=== PATIENT | male | born 1945 | race Caucasian/White ===

== ENCOUNTER → 2018-01-31 16:51 | Outpatient (CLI) | payer OTHER, SELFPAY ==
[2018-01-31 17:35] LABS: Hematocrit 44.5 % (41-53); Hemoglobin 15.2 g/dL (13.5-17.5); Mean Corpuscular HGB Conc 34.2 % (30-36); Mean Corpuscular Hemoglobin 30.7 PG (26-34); Mean Corpuscular Volume 89.7 fL (80-100); Platelet Count 244 X10^3/uL (150-400); Red Blood Cell Count 4.96 X10^6/uL (4.5-5.9); Red Cell Distribution Width 15.4 % (11.6-14.8); White Blood Cell Count 9.8 X10^3/uL (4.5-11.0)
[2018-01-31 17:54] LABS: INR 1.5 (0.9-1.3); Prothrombin Time 16.7 SECONDS (10.1-12.7)
[2018-01-31 17:56] LABS: PTT Partial Thromboplastin Tim 34 SECONDS (26.4-36.2)
[2018-02-02 22:43] LABS: Protein C Antigen > 150 % normal (70-140)
[2018-02-07 01:22] LABS: B2-Glycoprotein I IgA AB < 9 SAU (< OR = 20); B2-Glycoprotein I IgG AB < 9 SGU (< OR = 20); B2-Glycoprotein I IgM AB < 9 SMU (< OR = 20); Cardiolipin Ab IgA < 11 APL; Cardiolipin Ab IgG < 14 GPL; Cardiolipin Ab IgM < 12 MPL; Phos. Serine AB IgM < 25 U/mL; dRVVT Screen 55 seconds (< OR = 45)
== END ==
PROVIDERS: PCP Internal Medicine; Visit Provider Internal Medicine
DX: D68.59 Other primary thrombophilia (principal)
CPT/HCPCS: 36415; 81241; 85027; 85302; 85306; 85610; 85613; 85730; 86146; 86147; 86148

== ENCOUNTER → 2018-05-25 09:29 | Outpatient (CLI) | payer OTHER, SELFPAY ==
--- NOTE | 2018-05-25 09:34 | DI.ECHO.S_ITS ---
[place]---------+ [facility] +---------+ : : [address] : : : : [id number] : : : : Phone: [phone] Echocardiogram Report + + :Name: SEBASTIAN LAWSON Study Date: 05/25/2018 Height: 70 in : :[facility] Weight: 210 lb : : Gender: Male BSA: 2.1 m2 : :: 1945 Age: 72 yrs BP: 150/96 mmHg: :Reason For Study: Arrhythmia, Dizziness : :Ordering Physician: Dr. Nowak : :[place] Performed By: Hayde Braun : + + Interpretation Summary This is a technically difficult study with limited endocardial visualization. Normal sinus rhythm with wide QRS complexes. Normal LV size, mild concentric LVH; there is dyssynchrony which could be due to conduction system disease. Otherwise no significant focal wall motion abnormalities. However, this is a technically difficult study, so can not exclude a small wall motion abnormality. Mild LA enlargement, otherwise normal chamber sizes. No significant valvular abnormalities. Mildly enlarged ascending aorta (4 cm diameter) Compared to prior study 10/04/2012 no changes have occurred. Procedure: A two-dimensional transthoracic echocardiogram with color flow and Doppler was performed. The study quality was technically adequate. Comparison is made with the echocardiogram of 10/04/2012. The patient was in normal sinus rhythm during the exam. The patient had a bundle branch block rhythm during the exam. Left Ventricle: Left ventricular wall thickness is mildly increased. The left ventricle is normal in size. There is no ventricular septal defect visualized. The ejection fraction is estimated to be 50-55%. Septal motion is consistent with conduction abnormality. Diastolic parameters suggest a relaxation abnormality of the left ventricle, consistent with probable normal filling pressures. Right Ventricle: The right ventricle is normal in size and function. Atria: The left atrium is mildly dilated. There is no Doppler evidence for an interatrial shunt. Mitral Valve: The mitral valve is normal in structure and function. There is trace mitral regurgitation. Aortic Valve: The aortic valve opens well. There is discrete nodular thickening of the right coronary cusp. There is trace aortic regurgitation. Tricuspid Valve: The tricuspid valve is not well visualized, but is grossly normal. There is a trace or physiologic amount of tricuspid regurgitation. Pulmonary artery pressures cannot be estimated because of the lack of a measurable TR jet velocity. Pulmonic Valve: The pulmonic valve is not well seen, but is grossly normal. Great Vessels: The aortic root is normal size. The ascending aorta is moderately enlarged. The aortic arch is mildly enlarged. The IVC is of normal diameter and collapses greater than 50% with a sniff. This suggests a low right atrial pressure of 3 mm Hg. Pericardium/ Pleura There is no pericardial effusion. MMode/2D Measurements & Calculations LVIDd: 4.3 cm LVOT diam: 2.1 cm LVIDs: 2.7 cm Ao root diam: 3.9 cm FS: 36.6 % Aortic Jxn: 3.0 cm EPSS: 1.1 cm asc Aorta Diam: 4.0 cm IVSd: 1.3 cm Ao Arch Diam (Prox Trans): 3.3 cm LVPWd: 1.1 cm LV merida. diameter/BSA (cm/m^2): 2.0 LV sys. diameter/BSA (cm/m^2): 1.3 LA A2 area: 17.3 cm2 RA long axis: 5.1 cm LA A4 area: 22.7 cm2 RA area: 14.2 cm2 LA length (vol): 5.6 cm RA vol: 33.7 ml LA vol: 59.1 ml RA : 15.8 ml/m2 LA vol index: 27.7 ml/m2 IVC diam: 1.4 cm RVD1 (basal): 3.7 cm RVD2 (mid): 3.0 cm Doppler Measurements & Calculations Ao V2 max: 119.9 cm/sec LVOT Max Augustus: 90.1 cm/sec Ao V2 mean: 90.0 cm/sec LV V1 max P.2 mmHg Ao max P.8 mmHg LV V1 VTI: 16.0 cm Ao mean P.5 mmHg FLOR(I,D): 2.8 cm2 Ao V2 VTI: 20.0 cm FLOR(V,D): 2.6 cm2 sev ratio: 0.80 FLOR indexed to BSA (cm^2/m^2): 1.3 MV E max augustus: 46.1 cm/sec PA V2 max: 93.5 cm/sec MV A max augustus: 73.9 cm/sec PA V2 mean: 59.7 cm/sec MV E/A: 0.62 PA mean P.6 mmHg Med Peak E' Augustus: 4.5 cm/sec PA Accel Time: 0.04 sec E/E' med: 10.2 Lat Peak E' Augustus: 5.9 cm/sec E/E' lat: 7.8 E/e' average: 9.0 MV dec time: 0.32 sec MV P1/2t: 93.0 msec MV 2t max augustus: 46.3 cm/sec MVA(t): 2.4 cm2 Reading Physician:05:31 PM
== END ==
PROVIDERS: PCP Internal Medicine; Visit Provider Internal Medicine
DX: I49.9 Cardiac arrhythmia, unspecified (principal); R42 Dizziness and giddiness
CPT/HCPCS: 93306

== ENCOUNTER → 2018-06-16 10:49 | Outpatient (CLI) | payer OTHER, SELFPAY ==
[2018-06-16 12:05] LABS: Add Manual Diff / Slide Review NO; Basophils Percent Auto 0.3 % (0-2); Eosinophils Percent Auto 0.2 % (2-4); Hematocrit 49.4 % (41-53); Hemoglobin 16.3 g/dL (13.5-17.5); Lymphocytes Percent Auto 9.3 % (25-40); Mean Corpuscular Hemoglobin 29.7 PG (26-34); Mean Corpuscular Volume 90.2 fL (80-100); Monocytes Percent Auto 7.5 % (3-14); Neutrophils Absolute Auto 9800 /uL (3000-5900); Neutrophils Percent Auto 82.7 % (50-75); Platelet Count 227 X10^3/uL (150-400); Red Blood Cell Count 5.48 X10^6/uL (4.5-5.9); Red Cell Distribution Width 14.9 % (11.6-14.8); White Blood Cell Count 11.8 X10^3/uL (4.5-11.0)
[2018-06-16 12:36] LABS: Alanine Aminotransferase 38 IU/L (21-72); Albumin 3.9 g/dL (3.5-5.0); Albumin Globulin Ratio 1.8 (1.0-2.8); Alkaline Phosphatase 44 U/L (38-126); Aspartate Aminotransferase 25 IU/L (17-59); Bilirubin Total 0.7 mg/dL (0.2-1.3); Bilirubin Unconjugated 0.5 mg/dL (0.0-1.1); Globulin 2.2 g/dL (1.7-4.1); HEMOLYSIS < 15 (0-50); Total Protein 6.1 g/dL (6.3-8.2)
== END ==
PROVIDERS: PCP Internal Medicine; Visit Provider Ophthalmology Neuro-ophthalmology
DX: Z79.899 Other long term (current) drug therapy (principal)
CPT/HCPCS: 36415; 80076; 85025

== ENCOUNTER → 2018-11-02 10:51 | Outpatient (CLI) | payer OTHER, SELFPAY ==
--- NOTE | 2018-11-02 10:52 | DI.US.S_ITS ---
PROCEDURE: US PERIPH VENOUS LOW EXTREM RT INDICATIONS: RIGHT CALF PAIN TECHNIQUE: Real-time imaging, as well as color and pulse Doppler interrogation, were performed of the lower extremity deep veins from the inguinal ligament to the popliteal fossa. COMPARISON: None. FINDINGS: The common femoral, femoral and popliteal veins are normally compressible, and free of intraluminal thrombus. Color and pulse Doppler demonstrate normal phasic intraluminal flow. There is normal augmentation response to distal compression maneuver. IMPRESSION: No DVT in the right lower extremity. Dictated by: Shraddha Carmona M.D. on 11/02/2018 at 12:39 Approved by: Shraddha Carmona M.D. on 11/02/2018 at 12:41
== END ==
PROVIDERS: PCP Internal Medicine; Visit Provider Nurse Practitioner
DX: M79.661 Pain in right lower leg (principal); Z86.711 Personal history of pulmonary embolism; Z86.718 Personal history of other venous thrombosis and embolism
CPT/HCPCS: 93971

== ENCOUNTER → 2018-11-11 09:04 | Outpatient (CLI) | payer OTHER, SELFPAY ==
[2018-11-11 10:38] LABS: Hematocrit 43.3 % (41-53); Hemoglobin 15.1 g/dL (13.5-17.5); Mean Corpuscular HGB Conc 34.9 % (30-36); Mean Corpuscular Hemoglobin 33.3 PG (26-34); Mean Corpuscular Volume 95.5 fL (80-100); Platelet Count 236 X10^3/uL (150-400); Red Blood Cell Count 4.54 X10^6/uL (4.5-5.9); Red Cell Distribution Width 16.9 % (11.6-14.8); White Blood Cell Count 7.2 X10^3/uL (4.5-11.0)
[2018-11-11 10:47] LABS: Add Manual Diff / Slide Review YES
[2018-11-11 11:03] LABS: Alanine Aminotransferase 25 IU/L (21-72); Albumin 3.7 g/dL (3.5-5.0); Albumin Globulin Ratio 1.5 (1.0-2.8); Alkaline Phosphatase 39 U/L (38-126); Aspartate Aminotransferase 24 IU/L (17-59); BUN Creatinine Ratio 15.6 (6-22); Bilirubin Total 0.6 mg/dL (0.2-1.3); Blood Urea Nitrogen 14 mg/dL (9-20); Calcium 8.9 mg/dL (8.4-10.2); Carbon Dioxide 29 mmol/L (22-32); Chloride 100 mmol/L (98-107); Cholesterol 214 mg/dL (140-199); Estimated Glomerular Filt Rate > 60.0 mL/min (>60); Globulin 2.5 g/dL (1.7-4.1); Glucose 73 mg/dL (80-110); HDL Cholesterol 53 mg/dL (40-60); HEMOLYSIS < 15 (0-50); LDL Cholesterol Calculated 135 mg/dL (<100); Potassium 3.5 mmol/L (3.4-5.1); Sodium 137 mmol/L (137-145); Total Protein 6.2 g/dL (6.3-8.2); Triglycerides 128 mg/dL (35-150)
[2018-11-11 11:15] LABS: Free T4, Direct Thyroxine 1.17 ng/dL (0.78-2.19)
[2018-11-11 11:29] LABS: Thyroid Stimulating Hormone 2.02 uIU/mL (0.47-4.68)
[2018-11-11 11:45] LABS: Neutrophils Absolute Manual 5112 /uL (3000-5900); Total Cells Counted 100
[2018-11-11 11:46] LABS: Anisocytosis 1+
== END ==
PROVIDERS: PCP Internal Medicine; Visit Provider Internal Medicine
DX: E78.2 Mixed hyperlipidemia (principal); G70.00 Myasthenia gravis without (acute) exacerbation; I95.1 Orthostatic hypotension; Z12.5 Encounter for screening for malignant neoplasm of prostate; Z13.1 Encounter for screening for diabetes mellitus; Z13.6 Encounter for screening for cardiovascular disorders
CPT/HCPCS: 36415; 80053; 80061; 84439; 84443; 85025; G0103

== ENCOUNTER → 2019-08-31 10:27 | Outpatient (CLI) | payer OTHER, SELFPAY ==
[2019-08-31 12:50] LABS: Add Manual Diff / Slide Review NO; Basophils Absolute Auto 0 /uL (0-100); Basophils Percent Auto 0.6 % (0-2); Eosinophils Absolute Auto 0 /uL (0-450); Eosinophils Percent Auto 0.6 % (2-4); Hematocrit 46.5 % (41-53); Hemoglobin 16.2 g/dL (13.5-17.5); Lymphocytes Absolute Auto 700 /uL (1100-4500); Lymphocytes Percent Auto 9.2 % (25-40); Mean Corpuscular HGB Conc 34.8 % (30-36); Mean Corpuscular Hemoglobin 35.7 PG (26-34); Mean Corpuscular Volume 102.6 fL (80-100); Monocytes Absolute Auto 700 /uL (0-900); Monocytes Percent Auto 8.7 % (3-14); Neutrophils Absolute Auto 6400 /uL (1500-7000); Neutrophils Percent Auto 80.9 % (50-75); Platelet Count 188 X10^3/uL (150-400); Red Blood Cell Count 4.53 X10^6/uL (4.5-5.9); Red Cell Distribution Width 17.1 % (11.6-14.8); White Blood Cell Count 7.9 X10^3/uL (4.5-11.0)
[2019-08-31 13:10] LABS: Alanine Aminotransferase 23 IU/L (<50); Albumin 3.7 g/dL (3.5-5.0); Albumin Globulin Ratio 1.7 (1.0-2.8); Alkaline Phosphatase 33 U/L (38-126); Aspartate Aminotransferase 29 IU/L (17-59); Bilirubin Total 1.6 mg/dL (0.2-1.3); Bilirubin Unconjugated 1.5 mg/dL (0.0-1.1); Globulin 2.2 g/dL (1.7-4.1); HEMOLYSIS < 15 (0-50); Total Protein 5.9 g/dL (6.3-8.2)
== END ==
PROVIDERS: Family Provider Internal Medicine; PCP Internal Medicine; Visit Provider Ophthalmology Neuro-ophthalmology
DX: Z79.899 Other long term (current) drug therapy (principal)
CPT/HCPCS: 36415; 80076; 85025

== ENCOUNTER → 2019-11-17 09:40 | Outpatient (CLI) | payer OTHER, SELFPAY ==
[2019-11-17 10:24] LABS: Add Manual Diff / Slide Review NO; Basophils Absolute Auto 0 /uL (0-100); Basophils Percent Auto 0.6 % (0-2); Eosinophils Absolute Auto 100 /uL (0-450); Eosinophils Percent Auto 1.5 % (2-4); Hematocrit 45.1 % (41-53); Hemoglobin 15.3 g/dL (13.5-17.5); Lymphocytes Absolute Auto 900 /uL (1100-4500); Lymphocytes Percent Auto 12.6 % (25-40); Mean Corpuscular Hemoglobin 35.7 PG (26-34); Mean Corpuscular Volume 105.2 fL (80-100); Monocytes Absolute Auto 700 /uL (0-900); Monocytes Percent Auto 10.1 % (3-14); Neutrophils Absolute Auto 5300 /uL (1500-7000); Neutrophils Percent Auto 75.2 % (50-75); Platelet Count 193 X10^3/uL (150-400); Red Blood Cell Count 4.29 X10^6/uL (4.5-5.9); Red Cell Distribution Width 16.2 % (11.6-14.8)
[2019-11-17 10:41] LABS: Alanine Aminotransferase 20 IU/L (<50); Albumin 3.8 g/dL (3.5-5.0); Albumin Globulin Ratio 1.4 (1.0-2.8); Alkaline Phosphatase 37 U/L (38-126); Aspartate Aminotransferase 27 IU/L (17-59); BUN Creatinine Ratio 11.2 (6-22); Bilirubin Total 1.4 mg/dL (0.2-1.3); Blood Urea Nitrogen 10 mg/dL (9-20); Calcium 9.2 mg/dL (8.4-10.2); Carbon Dioxide 29 mmol/L (22-32); Chloride 101 mmol/L (98-107); Cholesterol 228 mg/dL (140-199); Estimated Glomerular Filt Rate > 60.0 mL/min (>60); Globulin 2.8 g/dL (1.7-4.1); Glucose 76 mg/dL (80-110); HDL Cholesterol 41 mg/dL (40-60); HEMOLYSIS < 15 (0-50); LDL Cholesterol Calculated 160 mg/dL (<100); Potassium 3.9 mmol/L (3.4-5.1); Sodium 136 mmol/L (137-145); Total Protein 6.6 g/dL (6.3-8.2); Triglycerides 136 mg/dL (35-150)
[2019-11-17 11:07] LABS: Prostate Specific Antigen Scrn 1.24 ng/mL (0.1-4.0)
[2019-11-21 11:49] LABS: Percent Free Testosterone 3.75 % (1.50-4.20); Testosterone Free 44.08 ng/dL (5.00-21.00); Testosterone Total 1175.4 ng/dL (264.0-916.0)
== END ==
PROVIDERS: Family Provider Internal Medicine; PCP Internal Medicine; Referring Provider Internal Medicine; Visit Provider Internal Medicine
DX: Z12.5 Encounter for screening for malignant neoplasm of prostate (principal); E29.1 Testicular hypofunction; E78.2 Mixed hyperlipidemia; G62.9 Polyneuropathy, unspecified; G70.00 Myasthenia gravis without (acute) exacerbation; Z79.01 Long term (current) use of anticoagulants; Z86.711 Personal history of pulmonary embolism
CPT/HCPCS: 36415; 80053; 80061; 84402; 84403; 85025; G0103

== ENCOUNTER → 2020-10-28 08:55 | Outpatient (CLI) | payer OTHER, SELFPAY ==
[2020-10-28 10:06] LABS: Alanine Aminotransferase 16 IU/L (<50); Albumin 3.8 g/dL (3.5-5.0); Albumin Globulin Ratio 1.6 (1.0-2.8); Alkaline Phosphatase 35 U/L (38-126); Aspartate Aminotransferase 28 IU/L (17-59); Bilirubin Total 1.2 mg/dL (0.2-1.3); Bilirubin Unconjugated 1.3 mg/dL (0.0-1.1); Globulin 2.4 g/dL (1.7-4.1); HEMOLYSIS < 15 (0-50); Hematocrit 44.9 % (41-53); Hemoglobin 15.5 g/dL (13.5-17.5); Mean Corpuscular HGB Conc 34.5 % (30-36); Mean Corpuscular Hemoglobin 35.9 PG (26-34); Mean Corpuscular Volume 103.9 fL (80-100); Platelet Count 185 X10^3/uL (150-400); Red Blood Cell Count 4.32 X10^6/uL (4.5-5.9); Red Cell Distribution Width 15.7 % (11.6-14.8); Total Protein 6.2 g/dL (6.3-8.2); White Blood Cell Count 5.5 X10^3/uL (4.5-11.0)
[2020-10-28 10:07] LABS: Add Manual Diff / Slide Review YES
[2020-10-28 10:31] LABS: Anisocytosis 2+; Neutrophils Absolute Manual 3135 /uL (3000-5900); Polychromasia 1+; Total Cells Counted 100
== END ==
PROVIDERS: Family Provider Internal Medicine; PCP Internal Medicine; Referring Provider Ophthalmology Neuro-ophthalmology; Visit Provider Ophthalmology Neuro-ophthalmology
DX: Z79.899 Other long term (current) drug therapy (principal)
CPT/HCPCS: 36415; 80076; 85007; 85025

== ENCOUNTER → 2021-02-05 09:08 | Outpatient (CLI) | payer OTHER, SELFPAY ==
[2021-02-05 10:46] LABS: Add Manual Diff / Slide Review YES; Hematocrit 44.8 % (41-53); Hemoglobin 15.5 g/dL (13.5-17.5); Mean Corpuscular HGB Conc 34.6 % (30-36); Mean Corpuscular Hemoglobin 35.8 PG (26-34); Mean Corpuscular Volume 103.5 fL (80-100); Platelet Count 176 X10^3/uL (150-400); Red Blood Cell Count 4.33 X10^6/uL (4.5-5.9); Red Cell Distribution Width 15.3 % (11.6-14.8); White Blood Cell Count 6.1 X10^3/uL (4.5-11.0)
[2021-02-05 11:14] LABS: Alanine Aminotransferase 16 IU/L (<50); Albumin 3.4 g/dL (3.5-5.0); Albumin Globulin Ratio 1.4 (1.0-2.8); Alkaline Phosphatase 34 U/L (38-126); Aspartate Aminotransferase 31 IU/L (17-59); BUN Creatinine Ratio 11.3 (6-22); Bilirubin Total 1.1 mg/dL (0.2-1.3); Blood Urea Nitrogen 9 mg/dL (9-20); Calcium 9.2 mg/dL (8.4-10.2); Carbon Dioxide 28 mmol/L (22-32); Chloride 100 mmol/L (98-107); Cholesterol 234 mg/dL (140-199); Estimated Glomerular Filt Rate > 60.0 mL/min (>60); Globulin 2.4 g/dL (1.7-4.1); Glucose 66 mg/dL (80-110); HDL Cholesterol 69 mg/dL (40-60); HEMOLYSIS 19 (0-50); LDL Cholesterol Calculated 141 mg/dL (<100); Sodium 133 mmol/L (137-145); Total Protein 5.8 g/dL (6.3-8.2); Triglycerides 122 mg/dL (35-150)
[2021-02-05 11:18] LABS: Neutrophils Absolute Manual 4026 /uL (3000-5900); Nucleated Red Blood Cells 1 #/Diff; RBC Morphology Normal Morphology; Total Cells Counted 100
[2021-02-05 11:45] LABS: Prostate Specific Antigen Scrn 1.33 ng/mL (0.1-4.0); Thyroid Stimulating Hormone 2.27 uIU/mL (0.47-4.68)
[2021-02-09 13:26] LABS: Percent Free Testosterone 4.87 % (1.50-4.20); Testosterone Free 48.83 ng/dL (5.00-21.00); Testosterone Total 1002.6 ng/dL (264.0-916.0)
== END ==
PROVIDERS: Family Provider Internal Medicine; PCP Internal Medicine; Referring Provider Internal Medicine; Visit Provider Internal Medicine
DX: E29.1 Testicular hypofunction (principal); E78.5 Hyperlipidemia, unspecified; Z12.5 Encounter for screening for malignant neoplasm of prostate; E78.2 Mixed hyperlipidemia; G70.00 Myasthenia gravis without (acute) exacerbation; Z86.718 Personal history of other venous thrombosis and embolism
CPT/HCPCS: 80053; 80061; 84402; 84403; 84443; 85007; 85025; G0103

== ENCOUNTER → 2021-04-01 08:57 | Outpatient (CLI) | payer OTHER, SELFPAY ==
[2021-04-01 14:36] LABS: Alanine Aminotransferase 21 IU/L (<50); Albumin 3.7 g/dL (3.5-5.0); Albumin Globulin Ratio 1.5 (1.0-2.8); Alkaline Phosphatase 42 U/L (38-126); Aspartate Aminotransferase 33 IU/L (17-59); Bilirubin Total 1.1 mg/dL (0.2-1.3); Globulin 2.4 g/dL (1.7-4.1); HEMOLYSIS 31 (0-50); Total Protein 6.1 g/dL (6.3-8.2)
== END ==
PROVIDERS: Family Provider Internal Medicine; PCP Internal Medicine; Referring Provider Physician Assistant; Visit Provider Physician Assistant
DX: Z79.899 Other long term (current) drug therapy (principal)
CPT/HCPCS: 36415; 80076

== ENCOUNTER 2021-11-06 08:41 | Emergency (ER) | payer OTHER, SELFPAY ==
[2021-11-06] VITALS (57 sets, daily range): BP systolic 125–179; BP diastolic 64–85; PULSE 30–82; RESP 13–23; TEMP 36.6; O2SAT 94–100; BMI 27.9
--- NOTE | 2021-11-06 08:46 | ED_ITS ---
HPI - Arrhythmia/Palpitations <Nery Agustina Naik DO - Last Filed: 11/06/21 18:48> General Chief Complaint: Arrhythmia/Palpitations Stated Complaint: Heart rate in 30's- from [facility] Time Seen by Provider: 11/06/21 08:46 Source: patient and old records reviewed Mode of arrival: Ambulatory Limitations: no limitations History of Present Illness HPI narrative: This is a 76-year-old male sent from the clinic for low heart rate. Patient states he has been told it has been low his last couple visits in the 40s but on the 30s. He states he has had recurrent syncopal episodes particularly when he bends over and stands up or sits suddenly. Patient states he has felt fatigued, weak, tired persistently for several months which is why he has been getting testosterone injections at the clinic. He denies any chest pain or pressure. No shortness of breath. No nausea or vomiting. No new swelling in his extremities. He denies any urinary or GI symptoms. He does have a history of myasthenia gravis and is on prednisone and azathioprine daily as well as Xarelto for recurrent pulmonary emboli. Patient denies any prior cardiac interventions, surgeries but has been diagnosed with a left bundle branch block years ago according to the patient. He has had surgery for a tib-fib fracture in the past. No tobacco, alcohol 2 to 3 times a week, no illicit. He has not had any recent medication changes. He is currently on prednisone 15 mg been trying to wean down successfully. Discussed with patient he is full code agreeable to electric pacing if needed. Related Data Home Medications Medication Instructions Recorded Confirmed vitamin D3 94.38 mcg (3,775 1 cap PO #0 07/03/16 09/11/21 unit)-folic acid 1 mg capsule (Ciferex) CA PANTOTHENATE/FOLIC ACID/VIT 1 tab PO QDAY #0 02/12/20 09/11/21 (MULTIVITAMIN) Calcium 1 tab PO DAILY 02/20/21 09/11/21 calcium carbonate 300 mg (750 mg) 300 mg PO DAILY PRN #0 tab 02/20/21 09/11/21 chewable tablet (Tums E-X) Previous Rx's Medication Instructions Recorded Disabled Parking Permit ea #1 10/07/17 azathioprine 50 mg tablet (Imuran) 175 mg PO DAILY #316 tab 09/09/20 prednisone 10 mg tablet 10 mg PO DAILY #100 tab 02/20/21 prednisone 5 mg tablet 5 mg PO DAILY #100 tab 02/20/21 rivaroxaban 20 mg tablet (Xarelto) 20 mg PO DAILY #90 tab 02/20/21 testosterone cypionate 200 mg/mL 300 mg (1.5 mL) IM Q4W #4 ml 10/15/21 intramuscular oil (Depo-Testosterone) Allergies Allergy/AdvReac Type Severity Reaction Status Date / Time No Known Drug Allergies Allergy Verified 09/11/21 13:38 Review of Systems <Nery Naik DO - Last Filed: 11/06/21 18:48> Review of Systems ROS Unobtainable: All systems reviewed & are unremarkable except as noted in HPI and below Patient History <Nery Naik DO - Last Filed: 11/06/21 18:48> Medical History Cataract (2012) DVT (deep venous thrombosis) (2012) GERD (gastroesophageal reflux disease) (~1979) Gilbert syndrome Hearing loss (2011) History of deep venous thrombosis (01/03/13) Hypogonadism in male (07/12/17) Left bundle branch block (LBBB) (12/08/16) Measles Mixed hyperlipidemia Myasthenia gravis Orthostatic hypotension Peripheral neuropathy (2011) Personal history of pulmonary embolism (~11/2017) Staph infection (2009) Vertigo (2011) Vocal cord paralysis (2010) Surgical History Anesthesia History of cataract removal with insertion of prosthetic lens (07/2013) History of thyroidectomy (05/2013) Family History Mother Age: 98 High cholesterol Father Pulmonary fibrosis Family/Other Adopted Family/Other Adopted Social History Smoking Status: Never smoker Smoking Status: Never smoker Exam <Nery Naik DO - Last Filed: 11/06/21 18:48> Narrative Exam Narrative: GENERAL: Alert and oriented x three, well-appearing elderly male in mild distress. HEENT: Head normocephalic, atraumatic, EOMI, pupils reactive, face symmetric, moist mucous membranes NECK: Supple, full range of motion CARDIOVASCULAR: Bradycardic but Regular rate and rhythm without murmurs, rubs or gallops. No JVD. No swelling bilateral lower extremities. RESPIRATORY: Breath sounds equal bilaterally, no wheezes rales or rhonchi. ABDOMEN: Soft, nontender. Nondistended. Normoactive bowel sounds all 4 quadrants. No guarding or rebound, rigidity, no mass : No CVA tenderness EXTREMITIES: Normal range of motion, no clubbing or edema. Neurovascularly intact NEUROLOGICAL: Cranial nerves II through XII grossly intact. Moving all extremities. Normal gait. SKIN: Warm, dry, no petechiae, no rashes or lesions. Initial Vital Signs Initial Vital Signs: Vital Signs Temperature 97.8 F 11/06/21 08:53 Pulse Rate 34 L 11/06/21 08:53 Respiratory Rate 18 11/06/21 08:53 Blood Pressure 179/81 H 11/06/21 08:53 Pulse Oximetry 100 11/06/21 08:53 Course <Nery Naik, DO - Last Filed: 11/06/21 18:48> Orders Ordered: Discontinued Medications Sodium Chloride (Normal Saline 0.9%) 1,000 mls @ 150 mls/hr IV CONT TERESA Last Admin: 11/06/21 09:40 Dose: 150 mls/hr Documented by: ESMER Consultations Consultation #1: Dr. Jay, cardiology agrees with transfer to [facility]. Dr. Allison is covering today and he asks that we talk with him. Consultation #2: Dr. Allison, cardiology. Review patient's EKG agrees that the 3rd degree heart block they do not have electrophysiology available and ask us to seek placement elsewhere. Time: 10:15 Consultation #3: Dr. Ngoc Rob CCU attending. She is happy to accept the patient for transfer. Asked if we can send a copy of the EKG. At this time they are working on bed availability so patient acutely decompensates we will change direction. We will fax EKG. Vital Signs Vital signs: Vital Signs - 8 hr 11/06/21 18:00 11/06/21 18:15 11/06/21 18:30 Pulse Rate 33 L 33 L 33 L Respiratory Rate 22 20 21 Blood Pressure 128/73 140/70 133/72 Pulse Oximetry 95 94 94 11/06/21 18:45 11/06/21 19:00 11/06/21 19:01 Pulse Rate 44 L 34 L 34 L Respiratory Rate 20 20 21 Blood Pressure 158/82 H 149/77 H Pulse Oximetry 96 96 11/06/21 19:14 11/06/21 19:15 11/06/21 19:30 Pulse Rate 33 L 34 L 33 L Respiratory Rate 19 22 21 Blood Pressure 153/72 H 164/64 H Pulse Oximetry 96 95 95 11/06/21 19:46 11/06/21 20:00 11/06/21 20:01 Pulse Rate 33 L 32 L 33 L Respiratory Rate 19 23 21 Blood Pressure 129/67 151/72 H Pulse Oximetry 96 95 96 MDM - Arrhythmia/Palpitations <Nery Naik, DO - Last Filed: 11/06/21 18:48> Lab Data Result diagrams: 11/06/21 09:10 11/06/21 09:10 Labs: Lab Results 11/06/21 11/06/21 11/06/21 Range/Units 09:10 09:10 09:10 WBC 5.9 (4.5-11.0) X10^3/uL RBC 4.57 (4.5-5.9) X10^6/uL Hgb 16.7 (13.5-17.5) g/dL Hct 47.4 (41-53) % MCV 103.7 H (80-100) fL MCH 36.5 H (26-34) PG MCHC 35.1 (30-36) % RDW 15.7 H (11.6-14.8) % Plt Count 172 (150-400) X10^3/uL Neut % (Auto) Not Reportable Lymph % (Auto) Not Reportable [place] % (Auto) Not Reportable Eos % (Auto) Not Reportable Baso % (Auto) Not Reportable Lymph # (Auto) Not Reportable [place] # (Auto) Not Reportable Baso # (Auto) Not Reportable Total Counted 100 Seg Neutrophils % 71.0 H (38-70) % Lymphocytes % (Manual) 20.0 L (25-45) % Monocytes % (Manual) 5.0 (2-11) % Eosinophils % (Manual) 3.0 (2-4) % Metamyelocytes % 1.0 H (-0) % Neutrophils # (Manual) 4189 (8404-3929) /uL RBC Morphology See below Macrocytosis 1+ H PT 13.0 H (10.1-12.7) SECONDS INR 1.2 (0.9-1.3) APTT 39 H (26.4-36.2) SECONDS Sodium 137 (137-145) mmol/L Potassium 3.7 (3.4-5.1) mmol/L Chloride 102 (98-107) mmol/L Carbon Dioxide 30 (22-32) mmol/L BUN 15 (9-20) mg/dL Creatinine 1.01 (0.66-1.25) mg/dL Estimated GFR > 60.0 (>60) mL/min BUN/Creatinine Ratio 14.9 (6-22) Glucose 79 L (80-110) mg/dL Calcium 9.0 (8.4-10.2) mg/dL Magnesium 2.3 (1.6-2.3) mg/dL Total Creatine Kinase 25 L (55-170) U/L CK-MB (CK-2) TNP CK-MB (CK-2) Rel Index TNP Troponin I 0.013 (0.01-0.034) ng/mL TSH (0.47-4.68) uIU/mL Urine Color Urine Appearance Urine pH (4.5-8.0) Ur Specific [place] (1.000-1.035) Urine Protein (Negative) Urine Glucose (UA) (Negative) g/dL Urine Ketones (NEGATIVE) Urine Occult Blood (Negative) Urine Nitrate (Negative) Urine Bilirubin (NEGATIVE) Urine Urobilinogen (0.2) E.U./dL Ur Leukocyte Esterase (NEGATIVE) Urine RBC (0-5/HPF) Urine WBC (0-5/HPF) Amorphous Sediment Urine Bacteria (None) Ur Culture Indicated? U Opiates 300ng/mL cut (Negative) Ur Oxycodone Screen (Negative) Urine Methadone Screen (Negative) Ur Barbiturates Screen (Negative) U Tricyclic Antidepress (Negative) Ur Phencyclidine Scrn (Negative) Ur Amphetamines Screen (Negative) U Methamphetamines Scrn (Negative) Ur MDMA Scrn (Ecstasy) (Negative) U Benzodiazepines Scrn (Negative) Urine Cocaine Screen (Negative) U Marijuana (THC) Screen (Negative) SARS-CoV-2 (PCR) (Negative) 11/06/21 11/06/21 11/06/21 Range/Units 09:10 09:10 10:42 WBC (4.5-11.0) X10^3/uL RBC (4.5-5.9) X10^6/uL Hgb (13.5-17.5) g/dL Hct (41-53) % MCV (80-100) fL MCH (26-34) PG MCHC (30-36) % RDW (11.6-14.8) % Plt Count (150-400) X10^3/uL Neut % (Auto) Lymph % (Auto) [place] % (Auto) Eos % (Auto) Baso % (Auto) Lymph # (Auto) [place] # (Auto) Baso # (Auto) Total Counted Seg Neutrophils % (38-70) % Lymphocytes % (Manual) (25-45) % Monocytes % (Manual) (2-11) % Eosinophils % (Manual) (2-4) % Metamyelocytes % (-0) % Neutrophils # (Manual) (1872-2898) /uL RBC Morphology Macrocytosis PT (10.1-12.7) SECONDS INR (0.9-1.3) APTT (26.4-36.2) SECONDS Sodium (137-145) mmol/L Potassium (3.4-5.1) mmol/L Chloride (98-107) mmol/L Carbon Dioxide (22-32) mmol/L BUN (9-20) mg/dL Creatinine (0.66-1.25) mg/dL Estimated GFR (>60) mL/min BUN/Creatinine Ratio (6-22) Glucose (80-110) mg/dL Calcium (8.4-10.2) mg/dL Magnesium (1.6-2.3) mg/dL Total Creatine Kinase (55-170) U/L CK-MB (CK-2) CK-MB (CK-2) Rel Index Troponin I (0.01-0.034) ng/mL TSH 3.95 (0.47-4.68) uIU/mL Urine Color Yellow Urine Appearance Clear Urine pH 6.5 (4.5-8.0) Ur Specific [place] <=1.005 (1.000-1.035) Urine Protein Negative (Negative) Urine Glucose (UA) Negative (Negative) g/dL Urine Ketones Negative (NEGATIVE) Urine Occult Blood Trace-lysed (Negative) Urine Nitrate Negative (Negative) Urine Bilirubin Negative (NEGATIVE) Urine Urobilinogen 0.2 (0.2) E.U./dL Ur Leukocyte Esterase Negative (NEGATIVE) Urine RBC 0-1/hpf (0-5/HPF) Urine WBC None seen (0-5/HPF) Amorphous Sediment 2+ Urine Bacteria None seen (None) Ur Culture Indicated? Cult not indicated U Opiates 300ng/mL cut (Negative) Ur Oxycodone Screen (Negative) Urine Methadone Screen (Negative) Ur Barbiturates Screen (Negative) U Tricyclic Antidepress (Negative) Ur Phencyclidine Scrn (Negative) Ur Amphetamines Screen (Negative) U Methamphetamines Scrn (Negative) Ur MDMA Scrn (Ecstasy) (Negative) U Benzodiazepines Scrn (Negative) Urine Cocaine Screen (Negative) U Marijuana (THC) Screen (Negative) SARS-CoV-2 (PCR) Negative (Negative) 11/06/21 Range/Units 10:42 WBC (4.5-11.0) X10^3/uL RBC (4.5-5.9) X10^6/uL Hgb (13.5-17.5) g/dL Hct (41-53) % MCV (80-100) fL MCH (26-34) PG MCHC (30-36) % RDW (11.6-14.8) % Plt Count (150-400) X10^3/uL Neut % (Auto) Lymph % (Auto) [place] % (Auto) Eos % (Auto) Baso % (Auto) Lymph # (Auto) [place] # (Auto) Baso # (Auto) Total Counted Seg Neutrophils % (38-70) % Lymphocytes % (Manual) (25-45) % Monocytes % (Manual) (2-11) % Eosinophils % (Manual) (2-4) % Metamyelocytes % (-0) % Neutrophils # (Manual) (6255-0003) /uL RBC Morphology Macrocytosis PT (10.1-12.7) SECONDS INR (0.9-1.3) APTT (26.4-36.2) SECONDS Sodium (137-145) mmol/L Potassium (3.4-5.1) mmol/L Chloride (98-107) mmol/L Carbon Dioxide (22-32) mmol/L BUN (9-20) mg/dL Creatinine (0.66-1.25) mg/dL Estimated GFR (>60) mL/min BUN/Creatinine Ratio (6-22) Glucose (80-110) mg/dL Calcium (8.4-10.2) mg/dL Magnesium (1.6-2.3) mg/dL Total Creatine Kinase (55-170) U/L CK-MB (CK-2) CK-MB (CK-2) Rel Index Troponin I (0.01-0.034) ng/mL TSH (0.47-4.68) uIU/mL Urine Color Urine Appearance Urine pH (4.5-8.0) Ur Specific [place] (1.000-1.035) Urine Protein (Negative) Urine Glucose (UA) (Negative) g/dL Urine Ketones (NEGATIVE) Urine Occult Blood (Negative) Urine Nitrate (Negative) Urine Bilirubin (NEGATIVE) Urine Urobilinogen (0.2) E.U./dL Ur Leukocyte Esterase (NEGATIVE) Urine RBC (0-5/HPF) Urine WBC (0-5/HPF) Amorphous Sediment Urine Bacteria (None) Ur Culture Indicated? U Opiates 300ng/mL cut Negative (Negative) Ur Oxycodone Screen Negative (Negative) Urine Methadone Screen Negative (Negative) Ur Barbiturates Screen Negative (Negative) U Tricyclic Antidepress Negative (Negative) Ur Phencyclidine Scrn Negative (Negative) Ur Amphetamines Screen Negative (Negative) U Methamphetamines Scrn Negative (Negative) Ur MDMA Scrn (Ecstasy) Negative (Negative) U Benzodiazepines Scrn Negative (Negative) Urine Cocaine Screen Negative (Negative) U Marijuana (THC) Screen Negative (Negative) SARS-CoV-2 (PCR) (Negative) Point of Care Testing Glucose POC 39 Imaging Data Chest x-ray: Radiologist's Impresson: [address] [address] XRay Report Signed Patient: Curt De La Rosa MR#: [id number] : 1945 Acct:[id number] Age/Sex: 76 / M Date of Service: 11/06/21 Loc: ED Accession Number: [id number] ?? Procedure: XR chest 1V Ordering Provider: Nery Naik D.O. PROCEDURE:? XR CHEST 1V ? INDICATIONS:? low heart rate ? TECHNIQUE:? One view of the chest was acquired.? ? COMPARISON:? [facility], CT, PE STUDY (CTA CHEST), 06/16/2015, 1:58.? [facility], CR, CHEST 1 VIEW, 10/04/2012, 5:57.? [facility], CR, CHEST 1 VIEW, 06/16/2015, 1:16.? [facility], CHEST 1 VIEW, 10/07/2016, 13:11. ? FINDINGS:? Defibrillator pads are seen ? Surgical changes and devices:? None.? ? Lungs and pleura:? An incomplete inspiratory result is noted, causing a crowded appearance to the lung markings.? No focal infiltrates are seen.? No pneumothorax or significant pleural effusions are seen. ? ? Mediastinum:? The cardiac contours are within normal limits. The aorta demonstr ates calcification and tortuosity. ? Bones and chest wall:? No suspicious bony lesions.? Overlying soft tissues appear unremarkable.? ? ? IMPRESSION:? No significant acute portable chest abnormality can seen.? ? ? Dictated by: Law Coombs M.D. on 11/06/2021 at 8:21 ? ? Approved by: Law Coombs M.D. on 11/06/2021 at 8:23?? ECG Data Attestation: I personally reviewed and interpreted this ECG as follows: Prior ECG tracings: available for review Interpretation: Sinus bradycardia with third-degree heart block rate of 34 IN 218 QRS of [address] QTC [address] elevation appreciated wide complex QRS with left bundle branch block appreciated. Patient has prior from 10/07/2016 which shows left bundle- branch block only. MDM Narrative Medical decision making narrative: This is a 76-year-old male sent for low heart rate from outpatient clinic where he was getting testosterone injections patient is found to be in a third-degree heart block. He is currently stable at the moment but discussed with patient he could become unstable at any time and he is full code and agreeable to pacing as needed. He had hypoglycemia but was noted to not have eaten since 2:00 p.m. yesterday. He was given juice and his glucose improved 80. Patient's CBC shows a macrocytosis, normal troponin and renal function with no major electrolyte abnormalities, TSH is normal. Patient is not on any medications that should cause bradycardia aware of. He does have a history of myasthenia gravis and pulmonary emboli and is on Xarelto. Discussed with are most local cardiology they do not have electrophysiology available today and asked that we seek placement elsewhere. Patient's [place] patient and Dr. Adrien Ortiz at [facility] gives permission to transfer where ever bed is available. Multiple facilities were contacted with minimal availability in the region including [facility], [facility], , [facility], [facility] may have ability. Patient accepted at [facility] for transfer by Dr. Weinstein. Bed availability unlikely until tomorrow and they ask that we continue to search for placement. We will continue to search for closer bed as recommended by Mary victoria W. Will continue to monitor if patient acutely decompensates we plan for ED to ED transfer to closer facility. Patient accepted at [facility] by Dr. Mark with cardiology for transfer. After discussion. EKG reviewed and appears to be high grade 2:1 AV block and needs transfer for pacemaker. Patient signed out to Dr. Landeros while awaiting transport this evening to other facility. Critical Care Time <Nery Naik, DO - Last Filed: 11/06/21 18:48> Critical Care Time Critical Care Time: Yes Total Critical Care Time: 35 Attestation: The high probability of a clinically significant, sudden or life threatening deterioration of the [cardiac, pulm] system(s) required my full and direct attention, intervention and personal management. The aggregate critical care time was [35] minutes. This time is in addition to time spent performing reported procedures but includes the following: [x] Data Review and interpretation [x] Patient assessment and monitoring of vital signs [x] Documentation [x] Medication orders and management Discharge Plan Departure Patient Disposition: Xfer Acute Care Hospital Clinical Impression: Heart block AV third degree Prescriptions: No Action vitamin D3-folic acid [Ciferex] 3,775 UNITS/1 MG capsule 1 cap PO Qty: 0 0RF Disabled Parking Permit Qty: 1 0RF CA PANTOTHENATE/FOLIC ACID/VIT (MULTIVITAMIN) 1 tab PO QDAY Qty: 0 0RF Rx Instructions: 1/2 dose a few times a week azathioprine [Imuran] 50 mg tablet 175 mg PO DAILY Qty: 316 3RF calcium carbonate [Tums E-X] 300 mg (750 mg) tablet,chewable 300 mg PO DAILY PRNQty: 0 0RF testosterone cypionate [Depo-Testosterone] 200 mg/mL oil 300 mg IM Q4W Qty: 4 3RF Rx Instructions: 4 vials, 1 ml each for quantity Calcium 1,000 mg 1 tab PO DAILY 0RF Xarelto 20 mg tablet 20 mg PO DAILY Qty: 90 4RF prednisone 10 mg tablet 10 mg PO DAILY Qty: 100 3RF Rx Instructions: Takes total of 15 mg daily prednisone 5 mg tablet 5 mg PO DAILY Qty: 100 3RF Referrals: Eliu Zendejas MD [Primary Care Provider] -
--- NOTE | 2021-11-06 08:49 | DI.RAD.S_ITS ---
PROCEDURE: XR CHEST 1V INDICATIONS: low heart rate TECHNIQUE: One view of the chest was acquired. COMPARISON: [facility], CT, PE STUDY (CTA CHEST), 06/16/2015, 1:58. [facility], CR, CHEST 1 VIEW, 10/04/2012, 5:57. [facility], CR, CHEST 1 VIEW, 06/16/2015, 1:16. [facility], CHEST 1 VIEW, 10/07/2016, 13:11. FINDINGS: Defibrillator pads are seen Surgical changes and devices: None. Lungs and pleura: An incomplete inspiratory result is noted, causing a crowded appearance to the lung markings. No focal infiltrates are seen. No pneumothorax or significant pleural effusions are seen. Mediastinum: The cardiac contours are within normal limits. The aorta demonstrates calcification and tortuosity. Bones and chest wall: No suspicious bony lesions. Overlying soft tissues appear unremarkable. IMPRESSION: No significant acute portable chest abnormality can seen. Dictated by: Law Coombs M.D. on 11/06/2021 at 8:21 Approved by: Law Coombs M.D. on 11/06/2021 at 8:23
[2021-11-06 09:33] LABS: Hematocrit 47.4 % (41-53); Hemoglobin 16.7 g/dL (13.5-17.5); Mean Corpuscular HGB Conc 35.1 % (30-36); Mean Corpuscular Hemoglobin 36.5 PG (26-34); Mean Corpuscular Volume 103.7 fL (80-100); Platelet Count 172 X10^3/uL (150-400); Red Blood Cell Count 4.57 X10^6/uL (4.5-5.9); Red Cell Distribution Width 15.7 % (11.6-14.8); White Blood Cell Count 5.9 X10^3/uL (4.5-11.0)
[2021-11-06 09:34] LABS: INR 1.2 (0.9-1.3)
[2021-11-06 09:37] LABS: PTT Partial Thromboplastin Tim 39 SECONDS (26.4-36.2)
[2021-11-06 09:40] LABS: BUN Creatinine Ratio 14.9 (6-22); Blood Urea Nitrogen 15 mg/dL (9-20); Carbon Dioxide 30 mmol/L (22-32); Chloride 102 mmol/L (98-107); Creatine Kinase 25 U/L (55-170); Estimated Glomerular Filt Rate > 60.0 mL/min (>60); Glucose 79 mg/dL (80-110); HEMOLYSIS < 15 (0-50); Magnesium 2.3 mg/dL (1.6-2.3); Potassium 3.7 mmol/L (3.4-5.1); Sodium 137 mmol/L (137-145)
[2021-11-06] MEDS: SODIUM CHLORIDE 0.9% 1,000 ML 150 ML IV (09:40)
[2021-11-06 09:45] LABS: COVID19 -Nasal RAPID Negative (Negative)
[2021-11-06 09:51] LABS: Troponin I 0.013 ng/mL (0.01-0.034)
[2021-11-06 10:03] LABS: Add Manual Diff / Slide Review YES
[2021-11-06 10:05] LABS: Macrocytosis 1+; Neutrophils Absolute Manual 4189 /uL (3000-5900); Total Cells Counted 100
[2021-11-06 10:26] LABS: Thyroid Stimulating Hormone 3.95 uIU/mL (0.47-4.68)
[2021-11-06 11:27] LABS: Appearance Urine UA CLEAR; Bilirubin Urine UA NEGATIVE (NEGATIVE); Color Urine UA YELLOW; Glucose Urine UA NEGATIVE (Negative); Ketones Urine UA NEGATIVE (NEGATIVE); Leukocyte Esterase Urine UA NEGATIVE (NEGATIVE); Nitrite Urine UA NEGATIVE (Negative); Occult Blood Urine UA TRACE-LYSED (Negative); Protein Urine UA NEGATIVE (Negative); Specific Gravity Urine UA <=1.005 (1.000-1.035); Urobilinogen Urine UA 0.2 E.U./dL (0.2); pH Urine UA 6.5 (4.5-8.0)
[2021-11-06 11:32] LABS: UR Morphine/Opiate cutoff 300 Negative (Negative); Ur Creatinine Normal (Normal); Ur Specific Gravity Normal (Normal); Urine Amphetamines Negative (Negative); Urine Barbiturates Negative (Negative); Urine Benzodiazepines Negative (Negative); Urine Cocaine Negative (Negative); Urine MDMA Negative (Negative); Urine Methadone Negative (Negative); Urine Methamphetamines Negative (Negative); Urine Oxycodone Negative (Negative); Urine Phencyclidine Negative (Negative); Urine Tetrahydrocannabinol Negative (Negative); Urine Tricyclic Antidepressant Negative (Negative); Urine pH Normal (Normal)
[2021-11-06 11:42] LABS: Amorphous Sediment Urine 2+; Bacteria Urine None Seen; Culture Indicated Urine Cult Not Indicated; RBC Urine 0-1/HPF (0-5/HPF); WBC Urine None Seen (0-5/HPF)
--- NOTE | 2021-11-06 18:49 | PC.NURSE ---
Pt had a clear liquid diet dinner, per provider.
--- NOTE | 2021-11-06 18:52 | PC.NURSE ---
Patient alert and oriented x 4 all day. at the bedside off and on throughout the day. Denies CP, denies SOB.
== END 2021-11-06 20:26 | disposition short-term general hospital (02) ==
PROVIDERS: Emergency Provider Emergency Medicine; Family Provider Internal Medicine; PCP Internal Medicine
DX: I44.2 Atrioventricular block, complete (principal); E16.2 Hypoglycemia, unspecified; Z20.822 Contact with and (suspected) exposure to COVID-19
CPT/HCPCS: 36415; 71045; 80048; 80305; 81001; 82550; 82962; 83735; 84443; 84484; 85007; 85025; 85610; 85730; 87635; 93005; 93010; 99284; 99285; 99291; C9803

== ENCOUNTER 2021-12-19 11:46 | Emergency (ER) | payer OTHER, SELFPAY ==
[2021-12-19] VITALS (18 sets, daily range): BP systolic 118–172; BP diastolic 74–98; PULSE 60–68; RESP 16–20; TEMP 36.3; O2SAT 95–98; BMI 27.2
--- NOTE | 2021-12-19 11:56 | DI.RAD.S_ITS ---
PROCEDURE: XR CHEST 1V INDICATIONS: chest pain TECHNIQUE: One view of the chest was acquired. COMPARISON: [facility], CR, XR CHEST 1V, 11/06/2021, 9:01. FINDINGS: Surgical changes and devices: Left chest wall pacemaker leads are in the region of right atrium and right ventricle. Lungs and pleura: Lungs are clear. No pleural effusions or pneumothorax. Mediastinum: Mediastinal contours appear normal. Heart size is normal. Bones and chest wall: No suspicious bony lesions. Overlying soft tissues appear unremarkable. IMPRESSION: No acute cardiopulmonary pathology. Left chest wall pacemaker in place. Dictated by: Jovanny Marcos M.D. on 12/19/2021 at 12:16 Approved by: Jovanny Marcos M.D. on 12/19/2021 at 12:27
--- NOTE | 2021-12-19 12:06 | ED.CHESTPAIN ---
HPI - Chest Pain General Chief Complaint: Chest Pain Stated Complaint: chest pains/arm pains, has a pacemaker Time Seen by Provider: 12/19/21 12:06 Source: patient Mode of arrival: Ambulatory Limitations: no limitations History of Present Illness HPI narrative: 76M nonsmoker with history of third-degree heart block and recent pacemaker placement presents with a chief complaint of mid chest burning chest pain that radiates into both arms for the past 2 days. He states that seems to be worse if he lays on his side and thinks Mylanta probably helped. He had a pacemaker placed at the end of October and has been told not to lay on his left side, he has been sleeping on his right side and questions whether not doing this may have triggered his reflux. He is not dizzy nor weak or lightheaded. He has had no fever or chills and denies nausea, vomiting or diarrhea. He denies any exertional element to his symptoms. As far as he can tell his pacemaker has been working just fine. Related Data Home Medications Medication Instructions Recorded Confirmed vitamin D3 94.38 mcg (3,775 1 cap PO #0 07/03/16 11/14/21 unit)-folic acid 1 mg capsule (Ciferex) CA PANTOTHENATE/FOLIC ACID/VIT 1 tab PO QDAY #0 02/12/20 11/14/21 (MULTIVITAMIN) Calcium 1 tab PO DAILY 02/20/21 11/14/21 calcium carbonate 300 mg (750 mg) 300 mg PO DAILY PRN #0 tab 02/20/21 11/14/21 chewable tablet (Tums E-X) testosterone cypionate 200 mg/mL 300 mg IM Q4W ml 11/14/21 11/14/21 intramuscular oil (Depo-Testosterone) Previous Rx's Medication Instructions Recorded Disabled Parking Permit ea #1 10/07/17 azathioprine 50 mg tablet (Imuran) 175 mg PO DAILY #316 tab 09/09/20 prednisone 10 mg tablet 10 mg PO DAILY #100 tab 02/20/21 prednisone 5 mg tablet 5 mg PO DAILY #100 tab 02/20/21 rivaroxaban 20 mg tablet (Xarelto) 20 mg PO DAILY #90 tab 02/20/21 clotrimazole-betamethasone 1 1 applic TOPICAL BID #45 g 12/11/21 %-0.05 % topical cream Allergies Allergy/AdvReac Type Severity Reaction Status Date / Time No Known Drug Allergies Allergy Verified 11/14/21 13:34 Review of Systems Review of Systems Narrative: GENERAL: Denies chills, fatigue, malaise, fever, sweats. HEENT: Denies sinus pain, ear pain, sore throat, difficulty swallowing, dizziness. RESPIRATORY: Denies dyspnea, cough, wheezing, hemoptysis, sputum. CARDIOVASCULAR: See HPI GASTROINTESTINAL: See HPI : Denies dysuria, frequency, incontinence, hematuria, urinary retention. MUSCULOSKELETAL: denies weakness, joint pain, or bony pain SKIN: Denies rash, skin lesions, or other NEUROLOGIC: Denies weakness, headache, numbness, change in speech, confusion, seizures, incoordination. PSYCHIATRIC: No concerning psychosocial issues. 12 point review of systems is negative except for those stated above Patient History Medical History Cataract (2012) DVT (deep venous thrombosis) (2012) GERD (gastroesophageal reflux disease) (~1979) Gilbert syndrome Hearing loss (2011) Heart block AV third degree History of deep venous thrombosis (01/03/13) Hypogonadism in male (07/12/17) Left bundle branch block (LBBB) (12/08/16) Measles Mixed hyperlipidemia Myasthenia gravis Orthostatic hypotension Peripheral neuropathy (2011) Personal history of pulmonary embolism (~11/2017) Staph infection (2009) Vertigo (2011) Vocal cord paralysis (2010) Surgical History Anesthesia History of cataract removal with insertion of prosthetic lens (07/2013) History of thyroidectomy (05/2013) S/P cardiac pacemaker procedure (~10/2021) Family History Mother Age: 98 High cholesterol Father Pulmonary fibrosis Family/Other Adopted Family/Other Adopted Social History Smoking Status: Never smoker Smoking Status: Never smoker Substance Use Type: does not use Exam Narrative Exam Narrative: GENERAL: [76 year old patient appears stated age. Well-developed patient, in mild distress. HEAD: Atraumatic. Normocephalic. EYES: Pupils equal round and reactive. Extraocular motions intact. No scleral icterus. No injection or drainage. ENT: Nose without bleeding, purulent drainage. Throat without erythema, tonsillar hypertrophy or exudate. Airway patent. NECK: Trachea midline. Non tender CARDIOVASCULAR: Regular rate and rhythm without murmurs, gallops, or rubs. RESPIRATORY: Clear to auscultation. Breath sounds equal bilaterally. No wheezes, rales, or rhonchi. GASTROINTESTINAL: Abdomen soft, non-tender, nondistended. EXTREMITIES: No edema or joint tenderness. BACK: Nontender without deformity or crepitance. No flank tenderness. NEURO: AOx3. SKIN: No rash or erythema of visible areas Initial Vital Signs Initial Vital Signs: Vital Signs Temperature 97.4 F L 12/19/21 11:51 Pulse Rate 67 12/19/21 11:51 Respiratory Rate 18 12/19/21 11:51 Pulse Oximetry 97 12/19/21 11:51 Course Orders Ordered: Discontinued Medications Al Hydrox/Mg Hydrox/Simethicone 20 ml/ Lidocaine HCl 15 ml 0 ml PO NOW ONE Stop: 12/19/21 15:08 Last Admin: 12/19/21 15:28 Dose: 35 ml Documented by: STEFF Reevaluation(s) Reevaluation #1: Patient with significant improvement in symptoms over the course of the stay, though not obviously linked to any specific interventions or therapies. Consultations Consultation #1: Discussed with on-call product development coordinator at [facility]. We have reviewed the clinical course including labs, EKGs and imaging. We sure the opinion that the seems significantly unlikely to be of ischemic origin given these findings, or lack there of. CT angiogram has been discussed with Cardiology and we also sure the opinion that given the size of the reported ascending aneurysm it is not to be worried about or considered as a cause of patient's symptoms. Vital Signs Vital signs: Vital Signs - 8 hr 12/19/21 11:51 12/19/21 12:12 12/19/21 12:13 Temperature 97.4 F L Pulse Rate 67 68 67 Respiratory Rate 18 20 17 Blood Pressure 154/86 H Pulse Oximetry 97 98 98 12/19/21 12:30 12/19/21 13:00 12/19/21 13:11 Temperature Pulse Rate 67 60 60 Respiratory Rate 16 18 Blood Pressure 118/75 145/80 H Pulse Oximetry 97 97 98 12/19/21 13:30 12/19/21 14:00 12/19/21 14:30 Temperature Pulse Rate 60 60 63 Respiratory Rate Blood Pressure 133/74 141/83 H 124/81 Pulse Oximetry 96 97 96 12/19/21 15:00 12/19/21 15:30 Temperature Pulse Rate 62 62 Respiratory Rate 16 16 Blood Pressure 131/76 147/77 H Pulse Oximetry 96 97 MDM - Chest Pain Lab Data Result diagrams: 12/19/21 12:10 12/19/21 12:10 Labs: Lab Results 12/19/21 12/19/21 12/19/21 Range/Units 12:10 12:10 15:30 WBC 7.5 (4.5-11.0) X10^3/uL RBC 4.31 L (4.5-5.9) X10^6/uL Hgb 15.5 (13.5-17.5) g/dL Hct 44.2 (41-53) % MCV 102.7 H (80-100) fL MCH 35.9 H (26-34) PG MCHC 35.0 (30-36) % RDW 14.7 (11.6-14.8) % Plt Count 200 (150-400) X10^3/uL Neut % (Auto) 87.7 H (50-75) % Lymph % (Auto) 4.5 L (25-40) % Carson % (Auto) 7.3 (3-14) % Eos % (Auto) 0.3 L (2-4) % Baso % (Auto) 0.2 (0-2) % Neut # (Auto) 6600 (8478-9435) /uL Lymph # (Auto) 300 L (6339-3177) /uL Carson # (Auto) 600 (0-900) /uL Eos # (Auto) 0 (0-450) /uL Baso # (Auto) 0 (0-100) /uL Sodium 137 (137-145) mmol/L Potassium 4.1 (3.4-5.1) mmol/L Chloride 104 (98-107) mmol/L Carbon Dioxide 29 (22-32) mmol/L BUN 18 (9-20) mg/dL Creatinine 0.84 (0.66-1.25) mg/dL Estimated GFR > 60 (>60) mL/min BUN/Creatinine Ratio 21.4 (6-22) Glucose 113 H (80-110) mg/dL Calcium 8.8 (8.4-10.2) mg/dL Magnesium 2.3 (1.6-2.3) mg/dL Total Bilirubin 0.8 (0.2-1.3) mg/dL AST 40 (17-59) IU/L ALT 26 (<50) IU/L Alkaline Phosphatase 32 L (38-126) U/L Total Creatine Kinase 33 L (55-170) U/L CK-MB (CK-2) TNP CK-MB (CK-2) Rel Index TNP Troponin I 0.018 0.016 (0.01-0.034) ng/mL Total Protein 7.1 (6.3-8.2) g/dL Albumin 3.9 (3.5-5.0) g/dL Globulin 3.2 (1.7-4.1) g/dL Albumin/Globulin Ratio 1.2 (1.0-2.8) Lipase 154 (23-300) U/L Imaging Data Chest x-ray: Radiologist's Impression: Launch?Image [address] [address] XRay Report Signed Patient: Curt De LaR osa MR#: [id number] : 1945 Acct:[id number] Age/Sex: 76 / M Date of Service: 12/19/21 Loc: Accession Number: [id number] ?? Procedure: XR chest 1V Ordering Provider: Gus Kim D.O. PROCEDURE:? XR CHEST 1V ? INDICATIONS:? chest pain ? TECHNIQUE:? One view of the chest was acquired.? ? COMPARISON:? [facility], , XR CHEST 1V, 11/06/2021, 9:01. ? FINDINGS:? ? Surgical changes and devices:? Left chest wall pacemaker leads are in the region of right atrium and right ventricle. ? Lungs and pleura:? Lungs are clear.? No pleural effusions or pneumothorax.? ? Mediastinum:? Mediastinal contours appear normal.? Heart size is normal.? ? Bones and chest wall:? No suspicious bony lesions.? Overlying soft tissues appear unremarkable.? ? IMPRESSION:? No acute cardiopulmonary pathology.? Left chest wall pacemaker in place. ? ? Dictated by: Jovanyn Marcos M.D. on 12/19/2021 at 12:16 ? ? Approved by: Jovanny Marcos M.D. on 12/19/2021 at 12:27 ? CT scan - chest: Radiologist's Impression: [address] [address] [address] Scan Report Signed Patient: Curt De La Rosa MR#: [id number] : 1945 Acct:[id number] Age/Sex: 76 / M Date of Service: 12/19/21 Loc: ED Accession Number: [id number] ?? Procedure: CT angio chest PE protocol Ordering Provider: Gus Kim D.O. PROCEDURE:? CT ANGIO CHEST PE PROTOCOL ? INDICATIONS:? chest pain, recent pacer placement ? TECHNIQUE:? After the administration of intravenous contrast, 2 mm thick sections acquired from the pulmonary apices to the posterior costophrenic angles.? 3-dimensional maximum intensity projection (MIP) coronal and sagittal reformats were then acquired through the thorax.? For radiation dose reduction, the following was used:? automated exposure control, adjustment of mA and/or kV according to patient size.? ? COMPARISON:? None. ? FINDINGS:? Image quality:? Excellent.? ? Pulmonary arteries:? Pulmonary arteries are normal in size, and demonstrate no intraluminal filling defects to suggest central pulmonary embolism.? ? Lungs and pleura:? Mild dependent atelectasis in posterior and lateral periphery of bilateral lower lung vanessa are seen.? No pleural effusions or pneumothorax.? Central and peripheral airways are patent.? ? Mediastinum:? Heart size is enlarged, without pericardial effusion.? Pacemaker leads are noted in right atrium and right ventricle.? No mediastinal or hilar adenopathy.? Ascending thoracic aortic aneurysm is seen measures up to 4 cm in largest AP diameter..? Esophagus is normal in caliber, with a small hiatal hernia.? Left chest Bones and chest wall:? No suspicious bony lesions.? No acute vertebral body compression fracture.? Thyroid gland is within normal limits.? No axillary or supraclavicular adenopathy.? Wall pacemaker is seen. ? Abdomen:? Visualized upper abdominal solid organs appear normal in the early arterial phase of enhancement.? ? IMPRESSION:? 1. No evidence of pulmonary emboli.? 2. Ascending thoracic aortic aneurysm measures up to 4 cm in largest AP diameter.? Cardiomegaly, no pericardial effusion.? Left chest wall pacemaker in place.? No mediastinal or hilar lymphadenopathy. 3. Scattered atelectasis in posterior and lateral aspect of bilateral lower lung vanessa.? No focal infiltrate, pleural effusion or pneumothorax. ? ? ? Dictated by: Jovanny Marcos M.D. on 12/19/2021 at 13:46 ? ? Approved by: Jovanny Marcos M.D. on 12/19/2021 at 13:56 ? ECG Data Interpretation: EKG is normal sinus rhythm rate [73 ] and free of any signs of ischemia or ectopy. No ST segmental elevation or depression. No T wave inversions, left bundle-branch present MDM Narrative Medical decision making narrative: Multiple causes of chest pain considered including IA, PE, pneumothorax, pneumonia, aortic dissection, and pleurisy. Patient reports no radiation, no diaphoresis, no provocation with exertion, and no vomiting Patient's symptoms improved over duration of stay with above-stated therapies. Findings and discharge diagnosis discussed with patient/family followed by verbalization of understanding Return precautions discussed with patient/family whom verbalize understanding. Discharge Plan Departure Patient Disposition: Home Clinical Impression: Atypical chest pain Activity Restrictions/Additional Instructions: *You have been diagnosed with [atypical chest pain. As we discussed your EKGs, labs, and imaging are very reassuring. Your pacemaker is functioning fine and I have discussed your case with the cardiology group at [facility] who share this opinion. *What to do: *Please continue to take your regular medications as directed. [ ] New medication prescriptions sent to your pharmacy: [ ] [ ] New medication written as a paper prescription [x ] No new medications given *Please follow up with your primary care provider in 2-3 days, call for an appointment. Let them know you were seen in the Emergency Department and that we ask that you be seen in follow up. We will electronically transmit a record of today's note if your PCP is in our system * there was an incidental finding of a dilated ascending aorta at 4 cm. I discussed this with Cardiology at [facility] and there is no need for intervention at this time, they recommend following and has an outpatient which can be arranged by your primary care provider *If you do not have a primary care provider please contact the [facility] Resource line at [phone]. They will ask some questions about your medical history and help get you set up with a doctor in the community. *Return to Emergency Department if you should have any new, worsening or concerning symptoms, such as [fever greater than 101 F, shaking chills, worsening pain, persistent vomiting or other bothersome symptoms] Prescriptions: No Action vitamin D3-folic acid [Ciferex] 3,775 UNITS/1 MG capsule 1 cap PO Qty: 0 0RF Disabled Parking Permit Qty: 1 0RF CA PANTOTHENATE/FOLIC ACID/VIT (MULTIVITAMIN) 1 tab PO QDAY Qty: 0 0RF Rx Instructions: 1/2 dose a few times a week azathioprine [Imuran] 50 mg tablet 175 mg PO DAILY Qty: 316 3RF calcium carbonate [Tums E-X] 300 mg (750 mg) tablet,chewable 300 mg PO DAILY PRNQty: 0 0RF clotrimazole-betamethasone 1-0.05 % cream 1 applic topical BID Qty: 45 3RF Rx Instructions: For 4 weeks. then take 2 weeks off. testosterone cypionate [Depo-Testosterone] 200 mg/mL oil 300 mg IM Q4W 0RF Rx Instructions: RX TO BE SENT TO [facility] IN FUTURE/ 4 vials, 1 ml each for quantity Calcium 1,000 mg 1 tab PO DAILY 0RF Xarelto 20 mg tablet 20 mg PO DAILY Qty: 90 4RF prednisone 10 mg tablet 10 mg PO DAILY Qty: 100 3RF Rx Instructions: Takes total of 15 mg daily prednisone 5 mg tablet 5 mg PO DAILY Qty: 100 3RF Referrals: Eliu Zendejas MD [Primary Care Provider] -
[2021-12-19 12:18] LABS: Add Manual Diff / Slide Review NO; Basophils Absolute Auto 0 /uL (0-100); Basophils Percent Auto 0.2 % (0-2); Eosinophils Absolute Auto 0 /uL (0-450); Eosinophils Percent Auto 0.3 % (2-4); Hematocrit 44.2 % (41-53); Hemoglobin 15.5 g/dL (13.5-17.5); Lymphocytes Absolute Auto 300 /uL (1100-4500); Lymphocytes Percent Auto 4.5 % (25-40); Mean Corpuscular Hemoglobin 35.9 PG (26-34); Mean Corpuscular Volume 102.7 fL (80-100); Monocytes Absolute Auto 600 /uL (0-900); Monocytes Percent Auto 7.3 % (3-14); Neutrophils Absolute Auto 6600 /uL (1500-7000); Neutrophils Percent Auto 87.7 % (50-75); Platelet Count 200 X10^3/uL (150-400); Red Blood Cell Count 4.31 X10^6/uL (4.5-5.9); Red Cell Distribution Width 14.7 % (11.6-14.8); White Blood Cell Count 7.5 X10^3/uL (4.5-11.0)
[2021-12-19 12:34] LABS: Alanine Aminotransferase 26 IU/L (<50); Albumin 3.9 g/dL (3.5-5.0); Albumin Globulin Ratio 1.2 (1.0-2.8); Alkaline Phosphatase 32 U/L (38-126); Aspartate Aminotransferase 40 IU/L (17-59); BUN Creatinine Ratio 21.4 (6-22); Bilirubin Total 0.8 mg/dL (0.2-1.3); Blood Urea Nitrogen 18 mg/dL (9-20); Calcium 8.8 mg/dL (8.4-10.2); Carbon Dioxide 29 mmol/L (22-32); Chloride 104 mmol/L (98-107); Creatine Kinase 33 U/L (55-170); Estimated Glomerular Filt Rate > 60 mL/min (>60); Globulin 3.2 g/dL (1.7-4.1); Glucose 113 mg/dL (80-110); HEMOLYSIS 42 (0-50); Lipase 154 U/L (23-300); Magnesium 2.3 mg/dL (1.6-2.3); Potassium 4.1 mmol/L (3.4-5.1); Sodium 137 mmol/L (137-145); Total Protein 7.1 g/dL (6.3-8.2)
[2021-12-19 12:45] LABS: Troponin I 0.018 ng/mL (0.01-0.034)
--- NOTE | 2021-12-19 12:59 | DI.CT.S_ITS ---
PROCEDURE: CT ANGIO CHEST PE PROTOCOL INDICATIONS: chest pain, recent pacer placement TECHNIQUE: After the administration of intravenous contrast, 2 mm thick sections acquired from the pulmonary apices to the posterior costophrenic angles. 3-dimensional maximum intensity projection (MIP) coronal and sagittal reformats were then acquired through the thorax. For radiation dose reduction, the following was used: automated exposure control, adjustment of mA and/or kV according to patient size. COMPARISON: None. FINDINGS: Image quality: Excellent. Pulmonary arteries: Pulmonary arteries are normal in size, and demonstrate no intraluminal filling defects to suggest central pulmonary embolism. Lungs and pleura: Mild dependent atelectasis in posterior and lateral periphery of bilateral lower lung vanessa are seen. No pleural effusions or pneumothorax. Central and peripheral airways are patent. Mediastinum: Heart size is enlarged, without pericardial effusion. Pacemaker leads are noted in right atrium and right ventricle. No mediastinal or hilar adenopathy. Ascending thoracic aortic aneurysm is seen measures up to 4 cm in largest AP diameter.. Esophagus is normal in caliber, with a small hiatal hernia. Left chest Bones and chest wall: No suspicious bony lesions. No acute vertebral body compression fracture. Thyroid gland is within normal limits. No axillary or supraclavicular adenopathy. Wall pacemaker is seen. Abdomen: Visualized upper abdominal solid organs appear normal in the early arterial phase of enhancement. IMPRESSION: 1. No evidence of pulmonary emboli. 2. Ascending thoracic aortic aneurysm measures up to 4 cm in largest AP diameter. Cardiomegaly, no pericardial effusion. Left chest wall pacemaker in place. No mediastinal or hilar lymphadenopathy. 3. Scattered atelectasis in posterior and lateral aspect of bilateral lower lung vanessa. No focal infiltrate, pleural effusion or pneumothorax. Dictated by: Jovanny Marcos M.D. on 12/19/2021 at 13:46 Approved by: Jovanny Marcos M.D. on 12/19/2021 at 13:56
[2021-12-19] MEDS: MAG HYDROX/ALUMINUM/SIMETH SUS 20 ML, LIDOCAINE VISCOUS 2% 15 ML PO (15:28)
[2021-12-19 16:22] LABS: Troponin I 0.016 ng/mL (0.01-0.034)
== END 2021-12-19 18:07 | disposition home or self-care (01) ==
PROVIDERS: Emergency Provider Emergency Medicine; Family Provider Internal Medicine; PCP Internal Medicine
DX: R07.89 Other chest pain (principal); Z95.0 Presence of cardiac pacemaker
CPT/HCPCS: 36415; 71045; 71275; 80053; 82550; 83690; 83735; 84484; 85025; 93005; 93010; 99284

== ENCOUNTER → 2022-01-23 15:25 | Outpatient (CLI) | payer OTHER, SELFPAY ==
[2022-01-23 18:36] LABS: Erythrocyte Sedimentation Rate 5 MM/HR (0-15)
[2022-01-23 19:00] LABS: C-Reactive Protein Quant < 0.5 mg/dL (<1.0); Creatine Kinase 41 U/L (55-170)
[2022-01-23 19:29] LABS: TSH w/ Reflex to FT4 0.49 uIU/mL (0.47-4.68)
== END ==
PROVIDERS: Family Provider Internal Medicine; PCP Internal Medicine; Referring Provider Internal Medicine; Visit Provider Internal Medicine
DX: M79.10 Myalgia, unspecified site (principal); G62.9 Polyneuropathy, unspecified; G70.00 Myasthenia gravis without (acute) exacerbation; M25.50 Pain in unspecified joint; E29.1 Testicular hypofunction
CPT/HCPCS: 36415; 82550; 84443; 85651; 86140

== ENCOUNTER 2022-08-12 16:01 | Emergency (ER) | payer OTHER, SELFPAY ==
[2022-08-12] VITALS (9 sets, daily range): BP systolic 133–144; BP diastolic 75–103; PULSE 71–87; RESP 14–32; TEMP 36.2; O2SAT 96–99; BMI 29.0
--- NOTE | 2022-08-12 16:22 | DI.RAD.S_ITS ---
PROCEDURE: XR CHEST 1V INDICATIONS: chest pain TECHNIQUE: One view of the chest was acquired. COMPARISON: [facility], CR, XR CHEST 1V, 12/19/2021, 11:58. FINDINGS: Surgical changes and devices: Dual lead cardiac pacer is unchanged. Lungs and pleura: Lungs are clear. No pleural effusions or pneumothorax. Mediastinum: Mediastinal contours appear normal. Heart size is normal. Bones and chest wall: No suspicious bony lesions. Overlying soft tissues appear unremarkable. IMPRESSION: No acute cardiopulmonary findings. Dictated by: Stephy Clarke M.D. on 08/12/2022 at 16:54 Approved by: Stephy Clarke M.D. on 08/12/2022 at 16:55
[2022-08-12 16:56] LABS: Prothrombin Time 34.3 SECONDS (10.1-12.7)
[2022-08-12 16:59] LABS: PTT Partial Thromboplastin Tim 47 SECONDS (26-36)
[2022-08-12 17:00] LABS: Alanine Aminotransferase 28 IU/L (<50); Albumin 4.3 g/dL (3.5-5.0); Albumin Globulin Ratio 1.8 (1.0-2.8); Alkaline Phosphatase 38 U/L (38-126); Aspartate Aminotransferase 26 IU/L (17-59); BUN Creatinine Ratio 20.7 (6-22); Bilirubin Total 0.8 mg/dL (0.2-1.3); Blood Urea Nitrogen 18 mg/dL (9-20); Carbon Dioxide 24 mmol/L (22-32); Chloride 99 mmol/L (98-107); Creatine Kinase 41 U/L (55-170); Estimated Glomerular Filt Rate > 60 mL/min (>60); Globulin 2.4 g/dL (1.7-4.1); Glucose 114 mg/dL (80-110); HEMOLYSIS < 15 (0-50); Lipase 59 U/L (23-300); Magnesium 2.1 mg/dL (1.6-2.3); Sodium 135 mmol/L (137-145); Total Protein 6.7 g/dL (6.3-8.2)
[2022-08-12 17:08] LABS: Add Manual Diff / Slide Review NO; Basophils Absolute Auto 0 /uL (0-100); Basophils Percent Auto 0.4 % (0-2); Eosinophils Absolute Auto 0 /uL (0-450); Eosinophils Percent Auto 0.1 % (2-4); Hematocrit 28.7 % (41-53); Hemoglobin 9.9 g/dL (13.5-17.5); Lymphocytes Absolute Auto 200 /uL (1100-4500); Lymphocytes Percent Auto 4.6 % (25-40); Mean Corpuscular HGB Conc 34.5 % (30-36); Mean Corpuscular Hemoglobin 35.4 PG (26-34); Mean Corpuscular Volume 102.4 fL (80-100); Monocytes Absolute Auto 300 /uL (0-900); Monocytes Percent Auto 6.1 % (3-14); Neutrophils Absolute Auto 4700 /uL (1500-7000); Neutrophils Percent Auto 88.8 % (50-75); Platelet Count 189 X10^3/uL (150-400); Red Cell Distribution Width 22.9 % (11.6-14.8); White Blood Cell Count 5.3 X10^3/uL (4.5-11.0)
[2022-08-12 17:11] LABS: Troponin I 0.048 ng/mL (0.01-0.034)
[2022-08-12 17:24] LABS: Anisocytosis 2+; Macrocytosis 1+; Ovalocytes 1+; Poikilocytosis 2+; Tear Drop Cells 1+
[2022-08-12 20:39] LABS: Creatine Kinase 39 U/L (55-170)
--- NOTE | 2022-08-12 20:46 | ED.CHESTPAIN ---
HPI - Chest Pain <Meena Good DO - Last Filed: 08/14/22 18:11> General Chief Complaint: Chest Pain Stated Complaint: Bilat arm pain, Chest pain Time Seen by Provider: 08/12/22 17:54 Source: patient Mode of arrival: Family Vehicle Limitations: no limitations History of Present Illness HPI narrative: Patient is a 77-year-old male without a history of coronary artery disease. Does have a pacemaker in place in his on anticoagulation who is here for evaluation of several weeks of worsening chest pain on exertion that radiates down both of his arms. He states that it initially started as intermittent but now has become more frequent to the point were it happens every time he gets up and walks around. It improves when he sits down. Not worse with palpation. He currently is asymptomatic. He states his primary doctor has been trying to get him into have a stress test but has yet to have this performed. He denies any shortness of breath. Is taking all of his medications as directed. Related Data Home Medications Medication Instructions Recorded Confirmed vitamin D3 94.38 mcg (3,775 1 cap PO ##0 07/03/16 07/27/22 unit)-folic acid 1 mg capsule (Ciferex) CA PANTOTHENATE/FOLIC ACID/VIT 1 tab PO QDAY ##0 02/12/20 07/27/22 (MULTIVITAMIN) Calcium 1 tab PO DAILY 02/20/21 07/27/22 calcium carbonate 300 mg (750 mg) 300 mg PO DAILY PRN #0 tabs 02/20/21 07/27/22 chewable tablet (Tums E-X) azathioprine 50 mg tablet (Imuran) 200 mg PO DAILY 06/24/22 07/27/22 linezolid 600 mg tablet 600 mg PO DAILY 07/02/22 07/27/22 clarithromycin 500 mg tablet 500 mg PO BID 07/13/22 07/27/22 Previous Rx's Medication Instructions Recorded rivaroxaban 20 mg tablet (Xarelto) 20 mg PO DAILY #90 tabs 03/20/22 testosterone cypionate 200 mg/mL 300 mg (1.5 mL) IM Q4W #6 mL 04/28/22 intramuscular oil (Depo-Testosterone) prednisone 10 mg tablet 10 mg PO DAILY #90 tabs 06/05/22 [address]ing #1 ea 07/27/22 Allergies Allergy/AdvReac Type Severity Reaction Status Date / Time No Known Drug Allergies Allergy Verified 07/27/22 14:57 Review of Systems <Meena Good DO - Last Filed: 08/14/22 18:11> Constitutional Constitutional: Reports system reviewed and no additional complaints, except as documented ENT Ears, Nose, Mouth, and Throat: Reports system reviewed and no additional complaints, except as documented Cardiovascular Cardiovascular: Reports system reviewed and no additional complaints, except as documented Respiratory Respiratory: Reports system reviewed and no additional complaints, except as documented Gastrointestinal Gastrointestinal: Reports system reviewed and no additional complaints, except as documented Genitourinary Genitourinary: Reports system reviewed and no additional complaints, except as documented Musculoskeletal Musculoskeletal: Reports system reviewed and no additional complaints, except as documented Integumentary/Breasts Skin/Breast: Reports system reviewed and no additional complaints, except as documented Neurologic Neurologic: Reports system reviewed and no additional complaints, except as documented Hematologic/Lymphatic On Anticoagulants: Yes Patient History <Meena Good DO - Last Filed: 08/14/22 18:11> Medical History Cataract (2012) DVT (deep venous thrombosis) (2012) GERD (gastroesophageal reflux disease) (~1979) Gilbert syndrome Hearing loss (2011) Heart block AV third degree History of deep venous thrombosis (01/03/13) Hypogonadism in male (07/12/17) Left bundle branch block (LBBB) (12/08/16) Measles Mixed hyperlipidemia Myasthenia gravis Mycobacterium chelonae infection of skin Orthostatic hypotension Peripheral neuropathy (2011) Personal history of pulmonary embolism (~11/2017) Staph infection (2009) Vertigo (2011) Vocal cord paralysis (2010) Surgical History Anesthesia History of cataract removal with insertion of prosthetic lens (07/2013) History of thyroidectomy (05/2013) S/P cardiac pacemaker procedure (~10/2021) Family History Mother Age: 99 High cholesterol Father Pulmonary fibrosis Family/Other Adopted Family/Other Adopted Social History Smoking Status: Never smoker Smoking Status: Never smoker Substance Use Type: does not use Exam <Meena Good DO - Last Filed: 08/14/22 18:11> Initial Vital Signs Initial Vital Signs: Vital Signs Temperature 97.1 F L 08/12/22 16:20 Pulse Rate 87 08/12/22 16:20 Respiratory Rate 16 08/12/22 16:20 Blood Pressure 140/78 08/12/22 16:20 Pulse Oximetry 99 08/12/22 16:20 Oxygen Delivery Method 08/12/22 16:20 HENMT Head: normal to inspection and normocephalic Chest Chest: No crepitus and No tenderness Resp Effort & Inspection: normal respiratory effort Auscultation: clear to auscultation bilaterally Cardio Rate: regular rate Rhythm: regular rhythm GI Inspection: normal to inspection Palpation: soft and No tender Skin General: no rashes or lesions noted Neuro General: patient alert, patient awake, patient oriented x3 and moves all extremities Extrem General: normal to inspection and No capillary refill normal Psych Appearance: grossly normal and well kempt <Nery Naik DO - Last Filed: 08/13/22 18:52> Initial Vital Signs Initial Vital Signs: Vital Signs Temperature 97.1 F L 08/12/22 16:20 Pulse Rate 87 08/12/22 16:20 Respiratory Rate 16 08/12/22 16:20 Blood Pressure 140/78 08/12/22 16:20 Pulse Oximetry 99 08/12/22 16:20 Oxygen Delivery Method 08/12/22 16:20 <Gus Kim DO - Last Filed: 08/14/22 16:17> Initial Vital Signs Initial Vital Signs: Vital Signs Temperature 97.1 F L 08/12/22 16:20 Pulse Rate 87 08/12/22 16:20 Respiratory Rate 16 08/12/22 16:20 Blood Pressure 140/78 08/12/22 16:20 Pulse Oximetry 99 08/12/22 16:20 Oxygen Delivery Method 08/12/22 16:20 Scores <Meena Good DO - Last Filed: 08/14/22 18:11> HEART Score Heart Score history: Highly Suspicious Heart Score EKG: Non-Specific repolarization disturbance Heart Score Age: > or = 65 years old Heart Score risk factors: 1-2 risk factors Heart Score troponin: < or = to normal limit Heart Score Total: 6 <DO Cari Chun Last Filed: 08/13/22 18:52> HEART Score Heart Score Total: 6 <Gus Julio, DO - Last Filed: 08/14/22 16:17> HEART Score Heart Score Total: 6 Course <Meena Good, DO - Last Filed: 08/14/22 18:11> Orders Ordered: ED Orders 08/14/22 09:28 Basic Metabolic Panel Stat Complete Blood Count AUTO DIFF Stat PTT [Partial Thromboplastin Time] Q6H Troponin & CK Cardiac Panel Stat Azathioprine (Pom - Azathioprine 50 Mg Tablet) 100 mg PO 1200,2300 [facility] Last Admin: 08/14/22 13:54 Dose: 100 mg Documented By: Admin: 08/13/22 22:14 Dose: 100 mg Documented By: Admin: 08/13/22 12:18 Dose: 100 mg Documented By: MARIA GUADALUPE Clarithromycin (Pom - Clarithromycin 500 Mg Tablet) 500 mg PO 1200,2300 [facility] Last Admin: 08/14/22 13:54 Dose: 500 mg Documented By: Admin: 08/13/22 22:14 Dose: 500 mg Documented By: Admin: 08/13/22 12:18 Dose: 500 mg Documented By: MARIA GUADALUPE Heparin Sodium/Dextrose (Heparin Drip) 25,000 unit in 500 mls @ 20 mls/hr IV CONT TERESA; Protocol Last Admin: 08/13/22 21:38 Dose: 1,000 units/hr, 20 mls/hr Documented By: Titration: 08/13/22 21:38 Dose: 1,000 units/hr, 20 mls/hr Documented By: Admin: 08/12/22 21:35 Dose: 1,000 units/hr, 20 mls/hr Documented By: MARI Linezolid (Pom - Linezolid 600 Mg Tablet) 600 mg PO 1200 [facility] Last Admin: 08/14/22 13:54 Dose: 600 mg Documented By: Admin: 08/13/22 11:17 Dose: 600 mg Documented By: MARIA GUADALUPE Prednisone 10mg (Tablet) 1 each PO DAILY [facility] Last Admin: 08/14/22 09:19 Dose: 1 each Documented By: CUBA Pantoprazole Sodium (Pantoprazole 40 Mg Vial) 40 mg IV DAILY [facility] Last Admin: 08/14/22 09:19 Dose: 40 mg Documented By: Admin: 08/13/22 09:45 Dose: 40 mg Documented By: MARIA GUADALUPE Discontinued Medications Aspirin (Aspirin 81 Mg Chew Tab) 324 mg PO NOW ONE Stop: 08/12/22 16:23 Last Admin: 08/12/22 21:25 Dose: Not Given Documented By: MARI Azathioprine (Pom - Azathioprine 50 Mg Tablet) 50 mg PO 1200,2300 [facility] Last Admin: 08/13/22 13:09 Dose: Not Given Documented By: DEMI Heparin Sodium (Porcine) (Heparin 5,000 Unit/Ml Vial) 5,000 unit IV NOW ONE Stop: 08/12/22 21:09 Last Admin: 08/12/22 21:28 Dose: 5,000 unit Documented By: MARI Linezolid (Pom - Linezolid 600 Mg Tablet) 600 mg PO DAILY [facility] Last Admin: 08/13/22 10:47 Dose: Not Given Documented By: MARIA GUADALUPE(2) Prednisone (Pom - Prednisone 5 Mg Tablet) 10 mg PO DAILY [facility] Last Admin: 08/13/22 09:45 Dose: 10 mg Documented By: MARIA GUADALUPE Vital Signs Vital signs: Vital Signs - 8 hr 08/14/22 10:30 08/14/22 10:30 08/14/22 11:30 Pulse Rate 79 91 H Respiratory Rate 24 Blood Pressure 124/69 Pulse Oximetry 97 93 Oxygen Delivery Method Room Air 08/14/22 12:00 08/14/22 12:30 08/14/22 13:00 Pulse Rate 79 80 74 Respiratory Rate 24 26 H 21 Blood Pressure Pulse Oximetry 96 95 96 Oxygen Delivery Method 08/14/22 13:30 08/14/22 13:52 08/14/22 13:52 Pulse Rate 78 77 Respiratory Rate 20 24 Blood Pressure 120/73 120/73 Pulse Oximetry 93 97 Oxygen Delivery Method 08/14/22 13:56 08/14/22 14:00 08/14/22 14:04 Pulse Rate 92 H 80 Respiratory Rate 24 Blood Pressure 121/73 Pulse Oximetry Oxygen Delivery Method 08/14/22 14:30 08/14/22 15:00 08/14/22 15:30 Pulse Rate 76 75 73 Respiratory Rate 20 Blood Pressure Pulse Oximetry 98 97 98 Oxygen Delivery Method 08/14/22 16:00 08/14/22 16:30 Pulse Rate 72 75 Respiratory Rate 22 21 Blood Pressure Pulse Oximetry 99 Oxygen Delivery Method <Nery Naik, DO - Last Filed: 08/13/22 18:52> Orders Ordered: ED Orders 08/14/22 09:28 Basic Metabolic Panel Stat Complete Blood Count AUTO DIFF Stat PTT [Partial Thromboplastin Time] Q6H Troponin & CK Cardiac Panel Stat Azathioprine (Pom - Azathioprine 50 Mg Tablet) 100 mg PO 1200,2300 [facility] Last Admin: 08/14/22 13:54 Dose: 100 mg Documented By: Admin: 08/13/22 22:14 Dose: 100 mg Documented By: Admin: 08/13/22 12:18 Dose: 100 mg Documented By: MARIA GUADALUPE Clarithromycin (Pom - Clarithromycin 500 Mg Tablet) 500 mg PO 1200,2300 [facility] Last Admin: 08/14/22 13:54 Dose: 500 mg Documented By: Admin: 08/13/22 22:14 Dose: 500 mg Documented By: Admin: 08/13/22 12:18 Dose: 500 mg Documented By: MARIA GUADALUPE Heparin Sodium/Dextrose (Heparin Drip) 25,000 unit in 500 mls @ 20 mls/hr IV CONT TERESA; Protocol Last Admin: 08/13/22 21:38 Dose: 1,000 units/hr, 20 mls/hr Documented By: Titration: 08/13/22 21:38 Dose: 1,000 units/hr, 20 mls/hr Documented By: Admin: 08/12/22 21:35 Dose: 1,000 units/hr, 20 mls/hr Documented By: MARI Linezolid (Pom - Linezolid 600 Mg Tablet) 600 mg PO 1200 [facility] Last Admin: 08/14/22 13:54 Dose: 600 mg Documented By: Admin: 08/13/22 11:17 Dose: 600 mg Documented By: MARIA GUADALUPE Prednisone 10mg (Tablet) 1 each PO DAILY [facility] Last Admin: 08/14/22 09:19 Dose: 1 each Documented By: CUBA Pantoprazole Sodium (Pantoprazole 40 Mg Vial) 40 mg IV DAILY [facility] Last Admin: 08/14/22 09:19 Dose: 40 mg Documented By: Admin: 08/13/22 09:45 Dose: 40 mg Documented By: MARIA GUADALUPE Discontinued Medications Aspirin (Aspirin 81 Mg Chew Tab) 324 mg PO NOW ONE Stop: 08/12/22 16:23 Last Admin: 08/12/22 21:25 Dose: Not Given Documented By: MARI Azathioprine (Pom - Azathioprine 50 Mg Tablet) 50 mg PO 1200,2300 [facility] Last Admin: 08/13/22 13:09 Dose: Not Given Documented By: DEMI Heparin Sodium (Porcine) (Heparin 5,000 Unit/Ml Vial) 5,000 unit IV NOW ONE Stop: 08/12/22 21:09 Last Admin: 08/12/22 21:28 Dose: 5,000 unit Documented By: MARI Linezolid (Pom - Linezolid 600 Mg Tablet) 600 mg PO DAILY [facility] Last Admin: 08/13/22 10:47 Dose: Not Given Documented By: MARIA GUADALUPE(2) Prednisone (Pom - Prednisone 5 Mg Tablet) 10 mg PO DAILY [facility] Last Admin: 08/13/22 09:45 Dose: 10 mg Documented By: MARIA GUADALUPE Vital Signs Vital signs: Vital Signs - 8 hr 08/14/22 10:30 08/14/22 10:30 08/14/22 11:30 Pulse Rate 79 91 H Respiratory Rate 24 Blood Pressure 124/69 Pulse Oximetry 97 93 Oxygen Delivery Method Room Air 08/14/22 12:00 08/14/22 12:30 08/14/22 13:00 Pulse Rate 79 80 74 Respiratory Rate 24 26 H 21 Blood Pressure Pulse Oximetry 96 95 96 Oxygen Delivery Method 08/14/22 13:30 08/14/22 13:52 08/14/22 13:52 Pulse Rate 78 77 Respiratory Rate 20 24 Blood Pressure 120/73 120/73 Pulse Oximetry 93 97 Oxygen Delivery Method 08/14/22 13:56 08/14/22 14:00 08/14/22 14:04 Pulse Rate 92 H 80 Respiratory Rate 24 Blood Pressure 121/73 Pulse Oximetry Oxygen Delivery Method 08/14/22 14:30 08/14/22 15:00 08/14/22 15:30 Pulse Rate 76 75 73 Respiratory Rate 20 Blood Pressure Pulse Oximetry 98 97 98 Oxygen Delivery Method 08/14/22 16:00 08/14/22 16:30 Pulse Rate 72 75 Respiratory Rate 22 21 Blood Pressure Pulse Oximetry 99 Oxygen Delivery Method <Gus Kim, - Last Filed: 08/14/22 16:17> Orders Ordered: ED Orders 08/14/22 09:28 Basic Metabolic Panel Stat Complete Blood Count AUTO DIFF Stat PTT [Partial Thromboplastin Time] Q6H Troponin & CK Cardiac Panel Stat Azathioprine (Pom - Azathioprine 50 Mg Tablet) 100 mg PO 1200,2300 [facility] Last Admin: 08/14/22 13:54 Dose: 100 mg Documented By: Admin: 08/13/22 22:14 Dose: 100 mg Documented By: Admin: 08/13/22 12:18 Dose: 100 mg Documented By: MARIA GAUDALUPE Clarithromycin (Pom - Clarithromycin 500 Mg Tablet) 500 mg PO 1200,2300 [facility] Last Admin: 08/14/22 13:54 Dose: 500 mg Documented By: Admin: 08/13/22 22:14 Dose: 500 mg Documented By: Admin: 08/13/22 12:18 Dose: 500 mg Documented By: MARIA GUADALUPE Heparin Sodium/Dextrose (Heparin Drip) 25,000 unit in 500 mls @ 20 mls/hr IV CONT TERESA; Protocol Last Admin: 08/13/22 21:38 Dose: 1,000 units/hr, 20 mls/hr Documented By: Titration: 08/13/22 21:38 Dose: 1,000 units/hr, 20 mls/hr Documented By: Admin: 08/12/22 21:35 Dose: 1,000 units/hr, 20 mls/hr Documented By: MARI Linezolid (Pom - Linezolid 600 Mg Tablet) 600 mg PO 1200 [facility] Last Admin: 08/14/22 13:54 Dose: 600 mg Documented By: Admin: 08/13/22 11:17 Dose: 600 mg Documented By: MARIA GUADALUPE Prednisone 10mg (Tablet) 1 each PO DAILY [facility] Last Admin: 08/14/22 09:19 Dose: 1 each Documented By: CUBA Pantoprazole Sodium (Pantoprazole 40 Mg Vial) 40 mg IV DAILY [facility] Last Admin: 08/14/22 09:19 Dose: 40 mg Documented By: Admin: 08/13/22 09:45 Dose: 40 mg Documented By: MARIA GUADALUPE Discontinued Medications Aspirin (Aspirin 81 Mg Chew Tab) 324 mg PO NOW ONE Stop: 08/12/22 16:23 Last Admin: 08/12/22 21:25 Dose: Not Given Documented By: MARI Azathioprine (Pom - Azathioprine 50 Mg Tablet) 50 mg PO 1200,2300 [facility] Last Admin: 08/13/22 13:09 Dose: Not Given Documented By: DEMI Heparin Sodium (Porcine) (Heparin 5,000 Unit/Ml Vial) 5,000 unit IV NOW ONE Stop: 08/12/22 21:09 Last Admin: 08/12/22 21:28 Dose: 5,000 unit Documented By: MARI Linezolid (Pom - Linezolid 600 Mg Tablet) 600 mg PO DAILY [facility] Last Admin: 08/13/22 10:47 Dose: Not Given Documented By: MARIA GUADALUPE(2) Prednisone (Pom - Prednisone 5 Mg Tablet) 10 mg PO DAILY [facility] Last Admin: 08/13/22 09:45 Dose: 10 mg Documented By: MARIA GUADALUPE Vital Signs Vital signs: Vital Signs - 8 hr 08/14/22 10:30 08/14/22 10:30 08/14/22 11:30 Pulse Rate 79 91 H Respiratory Rate 24 Blood Pressure 124/69 Pulse Oximetry 97 93 Oxygen Delivery Method Room Air 08/14/22 12:00 08/14/22 12:30 08/14/22 13:00 Pulse Rate 79 80 74 Respiratory Rate 24 26 H 21 Blood Pressure Pulse Oximetry 96 95 96 Oxygen Delivery Method 08/14/22 13:30 08/14/22 13:52 08/14/22 13:52 Pulse Rate 78 77 Respiratory Rate 20 24 Blood Pressure 120/73 120/73 Pulse Oximetry 93 97 Oxygen Delivery Method 08/14/22 13:56 08/14/22 14:00 08/14/22 14:04 Pulse Rate 92 H 80 Respiratory Rate 24 Blood Pressure 121/73 Pulse Oximetry Oxygen Delivery Method 08/14/22 14:30 08/14/22 15:00 08/14/22 15:30 Pulse Rate 76 75 73 Respiratory Rate 20 Blood Pressure Pulse Oximetry 98 97 98 Oxygen Delivery Method 08/14/22 16:00 08/14/22 16:30 Pulse Rate 72 75 Respiratory Rate 22 21 Blood Pressure Pulse Oximetry 99 Oxygen Delivery Method MDM - Chest Pain <Meena Good, DO - Last Filed: 08/14/22 18:11> Lab Data Attestation: I reviewed the patient's lab results. Result diagrams: 08/14/22 09:28 08/14/22 09:28 Labs: Lab Results 08/12/22 08/12/22 08/12/22 Range/Units 16:40 16:40 16:40 WBC 5.3 (4.5-11.0) X10^3/uL RBC 2.80 L (4.5-5.9) X10^6/uL Hgb 9.9 L (13.5-17.5) g/dL Hct 28.7 L (41-53) % MCV 102.4 H (80-100) fL MCH 35.4 H (26-34) PG MCHC 34.5 (30-36) % RDW 22.9 H (11.6-14.8) % Plt Count 189 (150-400) X10^3/uL Neut % (Auto) 88.8 H (50-75) % Lymph % (Auto) 4.6 L (25-40) % [place] % (Auto) 6.1 (3-14) % Eos % (Auto) 0.1 L (2-4) % Baso % (Auto) 0.4 (0-2) % Neut # (Auto) 4700 (9262-6215) /uL Lymph # (Auto) 200 L (6900-0908) /uL [place] # (Auto) 300 (0-900) /uL Eos # (Auto) 0 (0-450) /uL Baso # (Auto) 0 (0-100) /uL RBC Morphology See below Poikilocytosis 2+ H Anisocytosis 2+ H Macrocytosis 1+ H Tear Drop Cells 1+ H Ovalocytes 1+ H PT 34.3 H (10.1-12.7) SECONDS INR 3.0 H (0.9-1.3) APTT 47 H (26-36) SECONDS Sodium 135 L (137-145) mmol/L Potassium 5.0 (3.4-5.1) mmol/L Chloride 99 (98-107) mmol/L Carbon Dioxide 24 (22-32) mmol/L BUN 18 (9-20) mg/dL Creatinine 0.87 (0.66-1.25) mg/dL Estimated GFR > 60 (>60) mL/min BUN/Creatinine Ratio 20.7 (6-22) Glucose 114 H (80-110) mg/dL Calcium 9.0 (8.4-10.2) mg/dL Magnesium 2.1 (1.6-2.3) mg/dL Total Bilirubin 0.8 (0.2-1.3) mg/dL AST 26 (17-59) IU/L ALT 28 (<50) IU/L Alkaline Phosphatase 38 (38-126) U/L Total Creatine Kinase 41 L (55-170) U/L CK-MB (CK-2) TNP CK-MB (CK-2) Rel Index TNP Troponin I 0.048 H (0.01-0.034) ng/mL Total Protein 6.7 (6.3-8.2) g/dL Albumin 4.3 (3.5-5.0) g/dL Globulin 2.4 (1.7-4.1) g/dL Albumin/Globulin Ratio 1.8 (1.0-2.8) Lipase 59 (23-300) U/L SARS-CoV-2 (PCR) (Negative) 08/12/22 08/12/22 08/13/22 Range/Units 19:50 21:50 03:24 WBC (4.5-11.0) X10^3/uL RBC (4.5-5.9) X10^6/uL Hgb (13.5-17.5) g/dL Hct (41-53) % MCV (80-100) fL MCH (26-34) PG MCHC (30-36) % RDW (11.6-14.8) % Plt Count (150-400) X10^3/uL Neut % (Auto) (50-75) % Lymph % (Auto) (25-40) % [place] % (Auto) (3-14) % Eos % (Auto) (2-4) % Baso % (Auto) (0-2) % Neut # (Auto) (3636-3252) /uL Lymph # (Auto) (0165-7944) /uL [place] # (Auto) (0-900) /uL Eos # (Auto) (0-450) /uL Baso # (Auto) (0-100) /uL RBC Morphology Poikilocytosis Anisocytosis Macrocytosis Tear Drop Cells Ovalocytes PT (10.1-12.7) SECONDS INR (0.9-1.3) APTT 128 H* D (26-36) SECONDS Sodium (137-145) mmol/L Potassium (3.4-5.1) mmol/L Chloride (98-107) mmol/L Carbon Dioxide (22-32) mmol/L BUN (9-20) mg/dL Creatinine (0.66-1.25) mg/dL Estimated GFR (>60) mL/min BUN/Creatinine Ratio (6-22) Glucose (80-110) mg/dL Calcium (8.4-10.2) mg/dL Magnesium (1.6-2.3) mg/dL Total Bilirubin (0.2-1.3) mg/dL AST (17-59) IU/L ALT (<50) IU/L Alkaline Phosphatase (38-126) U/L Total Creatine Kinase 39 L (55-170) U/L CK-MB (CK-2) TNP CK-MB (CK-2) Rel Index TNP Troponin I 0.105 H (0.01-0.034) ng/mL Total Protein (6.3-8.2) g/dL Albumin (3.5-5.0) g/dL Globulin (1.7-4.1) g/dL Albumin/Globulin Ratio (1.0-2.8) Lipase (23-300) U/L SARS-CoV-2 (PCR) Negative (Negative) 08/13/22 08/13/22 08/13/22 Range/Units 03:24 09:55 09:55 WBC 4.1 L (4.5-11.0) X10^3/uL RBC 2.55 L (4.5-5.9) X10^6/uL Hgb 8.9 L (13.5-17.5) g/dL Hct 25.9 L (41-53) % MCV 101.5 H (80-100) fL MCH 35.0 H (26-34) PG MCHC 34.5 (30-36) % RDW 23.0 H (11.6-14.8) % Plt Count 172 (150-400) X10^3/uL Neut % (Auto) 57.0 D (50-75) % Lymph % (Auto) 29.6 D (25-40) % [place] % (Auto) 11.1 (3-14) % Eos % (Auto) 1.4 L (2-4) % Baso % (Auto) 0.9 (0-2) % Neut # (Auto) 2300 (1253-3730) /uL Lymph # (Auto) 1200 (4072-0243) /uL [place] # (Auto) 500 (0-900) /uL Eos # (Auto) 100 (0-450) /uL Baso # (Auto) 0 (0-100) /uL RBC Morphology See below Poikilocytosis Anisocytosis 2+ H Macrocytosis Tear Drop Cells Ovalocytes PT (10.1-12.7) SECONDS INR (0.9-1.3) APTT (26-36) SECONDS Sodium 135 L (137-145) mmol/L Potassium 4.3 (3.4-5.1) mmol/L Chloride 99 (98-107) mmol/L Carbon Dioxide 30 (22-32) mmol/L BUN 13 (9-20) mg/dL Creatinine 0.67 (0.66-1.25) mg/dL Estimated GFR > 60 (>60) mL/min BUN/Creatinine Ratio 19.4 (6-22) Glucose 81 (80-110) mg/dL Calcium 7.9 L (8.4-10.2) mg/dL Magnesium (1.6-2.3) mg/dL Total Bilirubin (0.2-1.3) mg/dL AST (17-59) IU/L ALT (<50) IU/L Alkaline Phosphatase (38-126) U/L Total Creatine Kinase 48 L 50 L (55-170) U/L CK-MB (CK-2) TNP TNP CK-MB (CK-2) Rel Index TNP TNP Troponin I 0.589 H* 0.539 H* (0.01-0.034) ng/mL Total Protein (6.3-8.2) g/dL Albumin (3.5-5.0) g/dL Globulin (1.7-4.1) g/dL Albumin/Globulin Ratio (1.0-2.8) Lipase (23-300) U/L SARS-CoV-2 (PCR) (Negative) 08/13/22 08/13/22 08/13/22 Range/Units 09:55 16:00 16:00 WBC (4.5-11.0) X10^3/uL RBC (4.5-5.9) X10^6/uL Hgb 9.0 L (13.5-17.5) g/dL Hct 26.5 L (41-53) % MCV (80-100) fL MCH (26-34) PG MCHC (30-36) % RDW (11.6-14.8) % Plt Count (150-400) X10^3/uL Neut % (Auto) (50-75) % Lymph % (Auto) (25-40) % [place] % (Auto) (3-14) % Eos % (Auto) (2-4) % Baso % (Auto) (0-2) % Neut # (Auto) (8978-9074) /uL Lymph # (Auto) (5210-4990) /uL [place] # (Auto) (0-900) /uL Eos # (Auto) (0-450) /uL Baso # (Auto) (0-100) /uL RBC Morphology Poikilocytosis Anisocytosis Macrocytosis Tear Drop Cells Ovalocytes PT (10.1-12.7) SECONDS INR (0.9-1.3) APTT 68 H D 63 H (26-36) SECONDS Sodium (137-145) mmol/L Potassium (3.4-5.1) mmol/L Chloride (98-107) mmol/L Carbon Dioxide (22-32) mmol/L BUN (9-20) mg/dL Creatinine (0.66-1.25) mg/dL Estimated GFR (>60) mL/min BUN/Creatinine Ratio (6-22) Glucose (80-110) mg/dL Calcium (8.4-10.2) mg/dL Magnesium (1.6-2.3) mg/dL Total Bilirubin (0.2-1.3) mg/dL AST (17-59) IU/L ALT (<50) IU/L Alkaline Phosphatase (38-126) U/L Total Creatine Kinase (55-170) U/L CK-MB (CK-2) CK-MB (CK-2) Rel Index Troponin I (0.01-0.034) ng/mL Total Protein (6.3-8.2) g/dL Albumin (3.5-5.0) g/dL Globulin (1.7-4.1) g/dL Albumin/Globulin Ratio (1.0-2.8) Lipase (23-300) U/L SARS-CoV-2 (PCR) (Negative) 08/13/22 08/14/22 08/14/22 Range/Units 21:27 04:30 09:28 WBC (4.5-11.0) X10^3/uL RBC (4.5-5.9) X10^6/uL Hgb (13.5-17.5) g/dL Hct (41-53) % MCV (80-100) fL MCH (26-34) PG MCHC (30-36) % RDW (11.6-14.8) % Plt Count (150-400) X10^3/uL Neut % (Auto) (50-75) % Lymph % (Auto) (25-40) % [place] % (Auto) (3-14) % Eos % (Auto) (2-4) % Baso % (Auto) (0-2) % Neut # (Auto) (8510-6077) /uL Lymph # (Auto) (1487-1445) /uL [place] # (Auto) (0-900) /uL Eos # (Auto) (0-450) /uL Baso # (Auto) (0-100) /uL RBC Morphology Poikilocytosis Anisocytosis Macrocytosis Tear Drop Cells Ovalocytes PT (10.1-12.7) SECONDS INR (0.9-1.3) APTT 69 H 57 H D 57 H (26-36) SECONDS Sodium (137-145) mmol/L Potassium (3.4-5.1) mmol/L Chloride (98-107) mmol/L Carbon Dioxide (22-32) mmol/L BUN (9-20) mg/dL Creatinine (0.66-1.25) mg/dL Estimated GFR (>60) mL/min BUN/Creatinine Ratio (6-22) Glucose (80-110) mg/dL Calcium (8.4-10.2) mg/dL Magnesium (1.6-2.3) mg/dL Total Bilirubin (0.2-1.3) mg/dL AST (17-59) IU/L ALT (<50) IU/L Alkaline Phosphatase (38-126) U/L Total Creatine Kinase (55-170) U/L CK-MB (CK-2) CK-MB (CK-2) Rel Index Troponin I (0.01-0.034) ng/mL Total Protein (6.3-8.2) g/dL Albumin (3.5-5.0) g/dL Globulin (1.7-4.1) g/dL Albumin/Globulin Ratio (1.0-2.8) Lipase (23-300) U/L SARS-CoV-2 (PCR) (Negative) 08/14/22 08/14/22 Range/Units 09:28 09:28 WBC 3.8 L (4.5-11.0) X10^3/uL RBC 2.44 L (4.5-5.9) X10^6/uL Hgb 8.5 L (13.5-17.5) g/dL Hct 24.8 L (41-53) % MCV 101.7 H (80-100) fL MCH 34.9 H (26-34) PG MCHC 34.3 (30-36) % RDW 22.9 H (11.6-14.8) % Plt Count 165 (150-400) X10^3/uL Neut % (Auto) 55.1 (50-75) % Lymph % (Auto) 33.5 (25-40) % [place] % (Auto) 9.1 (3-14) % Eos % (Auto) 1.4 L (2-4) % Baso % (Auto) 0.9 (0-2) % Neut # (Auto) 2100 (5166-4306) /uL Lymph # (Auto) 1300 (5700-5687) /uL [place] # (Auto) 300 (0-900) /uL Eos # (Auto) 100 (0-450) /uL Baso # (Auto) 0 (0-100) /uL RBC Morphology See below Poikilocytosis 1+ H Anisocytosis 2+ H Macrocytosis 1+ H Tear Drop Cells Ovalocytes PT (10.1-12.7) SECONDS INR (0.9-1.3) APTT (26-36) SECONDS Sodium 134 L (137-145) mmol/L Potassium 3.8 (3.4-5.1) mmol/L Chloride 100 (98-107) mmol/L Carbon Dioxide 26 (22-32) mmol/L BUN 15 (9-20) mg/dL Creatinine 0.68 (0.66-1.25) mg/dL Estimated GFR > 60 (>60) mL/min BUN/Creatinine Ratio 22.1 H (6-22) Glucose 102 (80-110) mg/dL Calcium 8.1 L (8.4-10.2) mg/dL Magnesium (1.6-2.3) mg/dL Total Bilirubin (0.2-1.3) mg/dL AST (17-59) IU/L ALT (<50) IU/L Alkaline Phosphatase (38-126) U/L Total Creatine Kinase 31 L (55-170) U/L CK-MB (CK-2) TNP CK-MB (CK-2) Rel Index TNP Troponin I 0.136 H* (0.01-0.034) ng/mL Total Protein (6.3-8.2) g/dL Albumin (3.5-5.0) g/dL Globulin (1.7-4.1) g/dL Albumin/Globulin Ratio (1.0-2.8) Lipase (23-300) U/L SARS-CoV-2 (PCR) (Negative) Imaging Data Chest x-ray: Radiologist's Impression: Curt De La Rosa??77??M??1945 ? Allergy/Adv: No Known Drug Allergies Close Chest X-Ray (Signed) Stephy Clarke - 08/12/22 Chest CTA (Signed) Jovanny Marcos - 12/19/21 Chest X-Ray (Signed) Jovanny Marcos - 12/19/21 DI Result CC 11/11/21 Chest X-Ray (Signed) Law Coombs - 11/06/21 Vascular Ultrasound (Signed) Junior Carmona - 11/02/18 Echocardiogram Ultrasound (Signed) Purnima Reyes - 05/25/18 Launch?[address] [address] XRay Report Signed Patient: Curt De La Rosa MR#: [id number] : 1945 Acct:[id number] Age/Sex: 77 / M Date of Service: 08/12/22 Loc: ED Accession Number: [id number] ?? Procedure: XR chest 1V Ordering Provider: Helena Avina D.O. PROCEDURE:? XR CHEST 1V ? INDICATIONS:? chest pain ? TECHNIQUE:? One view of the chest was acquired.? ? COMPARISON:? [facility], CR, XR CHEST 1V, 12/19/2021, 11:58. ? FINDINGS:? ? Surgical changes and devices:? Dual lead cardiac pacer is unchanged. ? Lungs and pleura:? Lungs are clear.? No pleural effusions or pneumothorax.? ? Mediastinum:? Mediastinal contours appear normal.? Heart size is normal.? ? Bones and chest wall:? No suspicious bony lesions.? Overlying soft tissues appear unremarkable.? ? IMPRESSION:? No acute cardiopulmonary findings. ? ? Dictated by: Stephy Clarke M.D. on 08/12/2022 at 16:54 ? ? Approved by: Stephy Clarke M.D. on 08/12/2022 at 16:55?? ECG Data Attestation: I personally reviewed and interpreted this ECG as follows: Prior ECG tracings: available for review Interpretation: Presentation EKG Sinus rhythm Ventricular rate 82 First-degree AV block PA interval 216 milliseconds Normal QRS Normal QTC Left bundle-branch block No concerning ST T wave changes Repeat EKG Unchanged from prior MDM Narrative Medical decision making narrative: Patient is currently asymptomatic. His left bundle-branch block on his EKG and is unchanged with repeat. Initial troponin greater than 99th percentile and 2nd troponin higher than 1st but does not meet AMI criteria however given his symptoms where he is having chest discomfort radiating to both of his arms every time he exerts himself and his elevated troponin and his high risk heart score patient was started on heparin. I do feel that patient would benefit from transfer to facility with Cardiology as he most likely will require catheterization. Multiple places contacted however there are no bed availability. Will continue to monitor patient here in the emergency department. Care turned over to Dr. Naik at change of shift to continue with disposition. Heena 08/13/22: Patient signed out to myself by Dr. Good for initially unstable angina which has now converted to NSTEMI his initial troponin was elevated 2nd troponin is positive patient has been chest pain-free overnight. He has received aspirin 324 mg, he is on heparin drip with bolus. EKG showed left bundle branch block. EKGs from yesterday x2 reviewed shows sinus rhythm with first-degree AV block, left axis bundle left axis deviation with no dynamic changes. Patient was seen independently evaluated by myself lungs are clear, heart is regular rate and rhythm, no swelling bilateral lower extremities. Patient is currently asymptomatic with no complaints. Reviewed his home medications he is on azathioprine and prednisone for myasthenia gravis he states he is never had crisis he has not relapsed about 12 years. 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 Plan for repeat labs this morning with his PTT for CBC patient was noted hemoglobin was decreased from priors, BNP, troponin and repeat EKG. These were reviewed patient hemoglobin is 8.9, will continue to trend patient may need blood back Protonix was initiated he is on prednisone daily with antibiotics and is now in a heparin drip his prior hemoglobin was 15 and December of 2021. Patient's CMP is negative with no acute change to renal function, troponin is now trending down words. Echo from this morning shows dyssynchronous pattern, EF of 50-55%, there is proximal septal thickening, right ventricles not well visualized but appears to have normal function mild dilation of the left atrium mild thickening of the mitral valve leaflets mild aortic calcification and sclerosis but no stenosis with mild aortic regurg and mild tricuspid regurg. No pericardial effusion, no pleural effusion and IVC is dilated and collapses greater than 50% with sniff. Patient troponin trending downward on recheck. Hemoglobin stable on recheck will continue to monitor. Patient signed out to Dr. Good while still attempting transfer patient has been called out and is on the regional hotline. Dr Good: overnight 08/13-08/14: Assumed care. View patient's 24 hour events. Reviewed his echocardiogram. He continues to be on heparin. Is asymptomatic. Troponin seems to have peaked and repeat labs ordered for morning. Patient does still require transfer to facility that has Cardiology/catheterization capability. Still no bed availability. Care turned over to Dr. Kim to continue to observe until disposition can be obtained. <Nery Naik, DO - Last Filed: 08/13/22 18:52> Lab Data Labs: Lab Results 08/12/22 08/12/22 08/12/22 Range/Units 16:40 16:40 16:40 WBC 5.3 (4.5-11.0) X10^3/uL RBC 2.80 L (4.5-5.9) X10^6/uL Hgb 9.9 L (13.5-17.5) g/dL Hct 28.7 L (41-53) % MCV 102.4 H (80-100) fL MCH 35.4 H (26-34) PG MCHC 34.5 (30-36) % RDW 22.9 H (11.6-14.8) % Plt Count 189 (150-400) X10^3/uL Neut % (Auto) 88.8 H (50-75) % Lymph % (Auto) 4.6 L (25-40) % [place] % (Auto) 6.1 (3-14) % Eos % (Auto) 0.1 L (2-4) % Baso % (Auto) 0.4 (0-2) % Neut # (Auto) 4700 (1038-4311) /uL Lymph # (Auto) 200 L (1907-3663) /uL [place] # (Auto) 300 (0-900) /uL Eos # (Auto) 0 (0-450) /uL Baso # (Auto) 0 (0-100) /uL RBC Morphology See below Poikilocytosis 2+ H Anisocytosis 2+ H Macrocytosis 1+ H Tear Drop Cells 1+ H Ovalocytes 1+ H PT 34.3 H (10.1-12.7) SECONDS INR 3.0 H (0.9-1.3) APTT 47 H (26-36) SECONDS Sodium 135 L (137-145) mmol/L Potassium 5.0 (3.4-5.1) mmol/L Chloride 99 (98-107) mmol/L Carbon Dioxide 24 (22-32) mmol/L BUN 18 (9-20) mg/dL Creatinine 0.87 (0.66-1.25) mg/dL Estimated GFR > 60 (>60) mL/min BUN/Creatinine Ratio 20.7 (6-22) Glucose 114 H (80-110) mg/dL Calcium 9.0 (8.4-10.2) mg/dL Magnesium 2.1 (1.6-2.3) mg/dL Total Bilirubin 0.8 (0.2-1.3) mg/dL AST 26 (17-59) IU/L ALT 28 (<50) IU/L Alkaline Phosphatase 38 (38-126) U/L Total Creatine Kinase 41 L (55-170) U/L CK-MB (CK-2) TNP CK-MB (CK-2) Rel Index TNP Troponin I 0.048 H (0.01-0.034) ng/mL Total Protein 6.7 (6.3-8.2) g/dL Albumin 4.3 (3.5-5.0) g/dL Globulin 2.4 (1.7-4.1) g/dL Albumin/Globulin Ratio 1.8 (1.0-2.8) Lipase 59 (23-300) U/L SARS-CoV-2 (PCR) (Negative) 08/12/22 08/12/22 08/13/22 Range/Units 19:50 21:50 03:24 WBC (4.5-11.0) X10^3/uL RBC (4.5-5.9) X10^6/uL Hgb (13.5-17.5) g/dL Hct (41-53) % MCV (80-100) fL MCH (26-34) PG MCHC (30-36) % RDW (11.6-14.8) % Plt Count (150-400) X10^3/uL Neut % (Auto) (50-75) % Lymph % (Auto) (25-40) % [place] % (Auto) (3-14) % Eos % (Auto) (2-4) % Baso % (Auto) (0-2) % Neut # (Auto) (2604-4563) /uL Lymph # (Auto) (8686-6195) /uL [place] # (Auto) (0-900) /uL Eos # (Auto) (0-450) /uL Baso # (Auto) (0-100) /uL RBC Morphology Poikilocytosis Anisocytosis Macrocytosis Tear Drop Cells Ovalocytes PT (10.1-12.7) SECONDS INR (0.9-1.3) APTT 128 H* D (26-36) SECONDS Sodium (137-145) mmol/L Potassium (3.4-5.1) mmol/L Chloride (98-107) mmol/L Carbon Dioxide (22-32) mmol/L BUN (9-20) mg/dL Creatinine (0.66-1.25) mg/dL Estimated GFR (>60) mL/min BUN/Creatinine Ratio (6-22) Glucose (80-110) mg/dL Calcium (8.4-10.2) mg/dL Magnesium (1.6-2.3) mg/dL Total Bilirubin (0.2-1.3) mg/dL AST (17-59) IU/L ALT (<50) IU/L Alkaline Phosphatase (38-126) U/L Total Creatine Kinase 39 L (55-170) U/L CK-MB (CK-2) TNP CK-MB (CK-2) Rel Index TNP Troponin I 0.105 H (0.01-0.034) ng/mL Total Protein (6.3-8.2) g/dL Albumin (3.5-5.0) g/dL Globulin (1.7-4.1) g/dL Albumin/Globulin Ratio (1.0-2.8) Lipase (23-300) U/L SARS-CoV-2 (PCR) Negative (Negative) 08/13/22 08/13/22 08/13/22 Range/Units 03:24 09:55 09:55 WBC 4.1 L (4.5-11.0) X10^3/uL RBC 2.55 L (4.5-5.9) X10^6/uL Hgb 8.9 L (13.5-17.5) g/dL Hct 25.9 L (41-53) % MCV 101.5 H (80-100) fL MCH 35.0 H (26-34) PG MCHC 34.5 (30-36) % RDW 23.0 H (11.6-14.8) % Plt Count 172 (150-400) X10^3/uL Neut % (Auto) 57.0 D (50-75) % Lymph % (Auto) 29.6 D (25-40) % [place] % (Auto) 11.1 (3-14) % Eos % (Auto) 1.4 L (2-4) % Baso % (Auto) 0.9 (0-2) % Neut # (Auto) 2300 (0888-5657) /uL Lymph # (Auto) 1200 (6232-1089) /uL [place] # (Auto) 500 (0-900) /uL Eos # (Auto) 100 (0-450) /uL Baso # (Auto) 0 (0-100) /uL RBC Morphology See below Poikilocytosis Anisocytosis 2+ H Macrocytosis Tear Drop Cells Ovalocytes PT (10.1-12.7) SECONDS INR (0.9-1.3) APTT (26-36) SECONDS Sodium 135 L (137-145) mmol/L Potassium 4.3 (3.4-5.1) mmol/L Chloride 99 (98-107) mmol/L Carbon Dioxide 30 (22-32) mmol/L BUN 13 (9-20) mg/dL Creatinine 0.67 (0.66-1.25) mg/dL Estimated GFR > 60 (>60) mL/min BUN/Creatinine Ratio 19.4 (6-22) Glucose 81 (80-110) mg/dL Calcium 7.9 L (8.4-10.2) mg/dL Magnesium (1.6-2.3) mg/dL Total Bilirubin (0.2-1.3) mg/dL AST (17-59) IU/L ALT (<50) IU/L Alkaline Phosphatase (38-126) U/L Total Creatine Kinase 48 L 50 L (55-170) U/L CK-MB (CK-2) TNP TNP CK-MB (CK-2) Rel Index TNP TNP Troponin I 0.589 H* 0.539 H* (0.01-0.034) ng/mL Total Protein (6.3-8.2) g/dL Albumin (3.5-5.0) g/dL Globulin (1.7-4.1) g/dL Albumin/Globulin Ratio (1.0-2.8) Lipase (23-300) U/L SARS-CoV-2 (PCR) (Negative) 08/13/22 08/13/22 08/13/22 Range/Units 09:55 16:00 16:00 WBC (4.5-11.0) X10^3/uL RBC (4.5-5.9) X10^6/uL Hgb 9.0 L (13.5-17.5) g/dL Hct 26.5 L (41-53) % MCV (80-100) fL MCH (26-34) PG MCHC (30-36) % RDW (11.6-14.8) % Plt Count (150-400) X10^3/uL Neut % (Auto) (50-75) % Lymph % (Auto) (25-40) % [place] % (Auto) (3-14) % Eos % (Auto) (2-4) % Baso % (Auto) (0-2) % Neut # (Auto) (2957-0505) /uL Lymph # (Auto) (6471-9642) /uL [place] # (Auto) (0-900) /uL Eos # (Auto) (0-450) /uL Baso # (Auto) (0-100) /uL RBC Morphology Poikilocytosis Anisocytosis Macrocytosis Tear Drop Cells Ovalocytes PT (10.1-12.7) SECONDS INR (0.9-1.3) APTT 68 H D 63 H (26-36) SECONDS Sodium (137-145) mmol/L Potassium (3.4-5.1) mmol/L Chloride (98-107) mmol/L Carbon Dioxide (22-32) mmol/L BUN (9-20) mg/dL Creatinine (0.66-1.25) mg/dL Estimated GFR (>60) mL/min BUN/Creatinine Ratio (6-22) Glucose (80-110) mg/dL Calcium (8.4-10.2) mg/dL Magnesium (1.6-2.3) mg/dL Total Bilirubin (0.2-1.3) mg/dL AST (17-59) IU/L ALT (<50) IU/L Alkaline Phosphatase (38-126) U/L Total Creatine Kinase (55-170) U/L CK-MB (CK-2) CK-MB (CK-2) Rel Index Troponin I (0.01-0.034) ng/mL Total Protein (6.3-8.2) g/dL Albumin (3.5-5.0) g/dL Globulin (1.7-4.1) g/dL Albumin/Globulin Ratio (1.0-2.8) Lipase (23-300) U/L SARS-CoV-2 (PCR) (Negative) 08/13/22 08/14/22 08/14/22 Range/Units 21:27 04:30 09:28 WBC (4.5-11.0) X10^3/uL RBC (4.5-5.9) X10^6/uL Hgb (13.5-17.5) g/dL Hct (41-53) % MCV (80-100) fL MCH (26-34) PG MCHC (30-36) % RDW (11.6-14.8) % Plt Count (150-400) X10^3/uL Neut % (Auto) (50-75) % Lymph % (Auto) (25-40) % [place] % (Auto) (3-14) % Eos % (Auto) (2-4) % Baso % (Auto) (0-2) % Neut # (Auto) (6540-1067) /uL Lymph # (Auto) (4626-0944) /uL [place] # (Auto) (0-900) /uL Eos # (Auto) (0-450) /uL Baso # (Auto) (0-100) /uL RBC Morphology Poikilocytosis Anisocytosis Macrocytosis Tear Drop Cells Ovalocytes PT (10.1-12.7) SECONDS INR (0.9-1.3) APTT 69 H 57 H D 57 H (26-36) SECONDS Sodium (137-145) mmol/L Potassium (3.4-5.1) mmol/L Chloride (98-107) mmol/L Carbon Dioxide (22-32) mmol/L BUN (9-20) mg/dL Creatinine (0.66-1.25) mg/dL Estimated GFR (>60) mL/min BUN/Creatinine Ratio (6-22) Glucose (80-110) mg/dL Calcium (8.4-10.2) mg/dL Magnesium (1.6-2.3) mg/dL Total Bilirubin (0.2-1.3) mg/dL AST (17-59) IU/L ALT (<50) IU/L Alkaline Phosphatase (38-126) U/L Total Creatine Kinase (55-170) U/L CK-MB (CK-2) CK-MB (CK-2) Rel Index Troponin I (0.01-0.034) ng/mL Total Protein (6.3-8.2) g/dL Albumin (3.5-5.0) g/dL Globulin (1.7-4.1) g/dL Albumin/Globulin Ratio (1.0-2.8) Lipase (23-300) U/L SARS-CoV-2 (PCR) (Negative) 08/14/22 08/14/22 Range/Units 09:28 09:28 WBC 3.8 L (4.5-11.0) X10^3/uL RBC 2.44 L (4.5-5.9) X10^6/uL Hgb 8.5 L (13.5-17.5) g/dL Hct 24.8 L (41-53) % MCV 101.7 H (80-100) fL MCH 34.9 H (26-34) PG MCHC 34.3 (30-36) % RDW 22.9 H (11.6-14.8) % Plt Count 165 (150-400) X10^3/uL Neut % (Auto) 55.1 (50-75) % Lymph % (Auto) 33.5 (25-40) % [place] % (Auto) 9.1 (3-14) % Eos % (Auto) 1.4 L (2-4) % Baso % (Auto) 0.9 (0-2) % Neut # (Auto) 2100 (5319-8897) /uL Lymph # (Auto) 1300 (7784-9118) /uL [place] # (Auto) 300 (0-900) /uL Eos # (Auto) 100 (0-450) /uL Baso # (Auto) 0 (0-100) /uL RBC Morphology See below Poikilocytosis 1+ H Anisocytosis 2+ H Macrocytosis 1+ H Tear Drop Cells Ovalocytes PT (10.1-12.7) SECONDS INR (0.9-1.3) APTT (26-36) SECONDS Sodium 134 L (137-145) mmol/L Potassium 3.8 (3.4-5.1) mmol/L Chloride 100 (98-107) mmol/L Carbon Dioxide 26 (22-32) mmol/L BUN 15 (9-20) mg/dL Creatinine 0.68 (0.66-1.25) mg/dL Estimated GFR > 60 (>60) mL/min BUN/Creatinine Ratio 22.1 H (6-22) Glucose 102 (80-110) mg/dL Calcium 8.1 L (8.4-10.2) mg/dL Magnesium (1.6-2.3) mg/dL Total Bilirubin (0.2-1.3) mg/dL AST (17-59) IU/L ALT (<50) IU/L Alkaline Phosphatase (38-126) U/L Total Creatine Kinase 31 L (55-170) U/L CK-MB (CK-2) TNP CK-MB (CK-2) Rel Index TNP Troponin I 0.136 H* (0.01-0.034) ng/mL Total Protein (6.3-8.2) g/dL Albumin (3.5-5.0) g/dL Globulin (1.7-4.1) g/dL Albumin/Globulin Ratio (1.0-2.8) Lipase (23-300) U/L SARS-CoV-2 (PCR) (Negative) Imaging Data ECHO: Radiologist's Impression: [address] [address]Gjkfnucmlyynqbgn ReportSigned Patient: Curt De La Rosa AMR#: [id number]: 1945cct:[id number]/Sex: 77 / MDate of Service: 08/13/22Loc: EDAccession Number: [id number]? ? Procedure: EC echo doppler complete Ordering Provider: Meean Good D.O. ? [facility]---------+? [facility]? +---------+ :?:? [address] [place] [address]?:?: :?:? [place], [place]?:?: :?:? [address]?:?: :?:?Phone: [phone]? :?: +---------[phone]? [phone]? +---------+ ?Echocardiogram Report + + :Name: CURT DE LA ROSA?Study Date: 08/13/2022?Height: 69.5 in: :Hospital ? ? ?ReadingLocation:?Weight: 201 lb : : ? Gender: Male?BSA: 2.1 m2? ? : :: 1945? Age: 77 yrs? BP: 127/72 mmHg: :Reason For Study: NSTEMI?: :Ordering Physician: CADENCE,? : :MEENA? Performed By: Laura Yu? : :Referring: MEENA GOOD?: + + Interpretation Summary 1) Normal left ventricular size, thickness, and systolic function (EF 55-60%). 2) There is a significant dyssynchronous contraction pattern, consistent with a conduction abnormality. 3) Grossly, normal right ventricular size and function. 4) No significant valvular abnormalities. 5) Compared to the Echo done 05/25/2018, no significant change. ? Procedure:? ?A two-dimensional transthoracic echocardiogram with color flow and Doppler was performed. The study quality was technically adequate. Comparison is made with the echocardiogram of . The heart rate ranged between 61-75 bpm during the study. Left Ventricle:? ?The left ventricle is normal in size. Left ventricular wall thickness is normal. Proximal septal thickening is noted. The ejection fraction is estimated to be 55-60%. There is a significant dyssynchronous contraction pattern, consistent with a conduction abnormality. Right Ventricle:? ?The right ventricle is not well visualized. The right ventricle is grossly normal size. The right ventricular systolic function is normal. Atria:? ?The left atrium is mildly dilated. Right atrial size is normal. There is no Doppler evidence for an interatrial shunt. Mitral Valve:? ?The mitral valve leaflets appear mildly thickened, but open well. There is mild mitral regurgitation. Aortic Valve:? ?The aortic valve is trileaflet. The aortic valve is mildly calcified. There is mild aortic valve sclerosis. There is no aortic valve stenosis. There is mild aortic regurgitation. Tricuspid Valve:? ?The tricuspid valve is normal in structure and function. There is mild tricuspid regurgitation. The right ventricular systolic pressure is estimated to be at least 27 mmHg based on an estimated right atrial pressure of 8 mm Hg. Pulmonic Valve:? ?The pulmonic valve is not well seen, but is grossly normal. There is trace pulmonic regurgitation. Great Vessels:? ?The aortic root is borderline dilated. The ascending aorta is at the upper limits of normal in size. The IVC is dilated (diameter is greater than 2.1 cm) yet it collapses greater than 50% with a sniff. This suggests a right atrial pressure of 8 mm Hg. Pericardium/ Pleura? ?There is no pericardial effusion. There is no pleural effusion. ? MMode/2D Measurements & Calculations LVIDd: 4.3 cm? LVOT diam: 2.5 cm LVIDs: 2.8 cm? Ao root diam: 3.9 cm FS: 35.9 %?asc Aorta Diam: 3.8 cm IVSd: 1.2 cm?Ao Arch Diam (Prox Trans): 2.6 cm LVPWd: 0.99 cm LV merida. diameter/BSA (cm/m^2): 2.1 LV sys. diameter/BSA (cm/m^2): 1.3 ? LA A2 area: 24.1 cm2?RA long axis: 5.6 cm LA A4 area: 20.1 cm2?RA area: 17.4 cm2 LA length (vol): 5.5 cm? RA vol: 45.7 ml LA vol: 74.8 ml? RA : 22.0 ml/m2 LA vol index: 35.9 ml/m2?IVC diam: 2.2 cm ? TAPSE: 2.1 cm ? Doppler Measurements & Calculations Ao V2 max: 139.6 cm/sec?LVOT Max Augustus: 107.3 cm/sec Ao V2 mean: 99.7 cm/sec?LV V1 max P.6 mmHg Ao max P.8 mmHg?LV V1 VTI: 24.6 cm Ao mean P.4 mmHg? FLOR(I,D): 4.1 cm2 Ao V2 VTI: 30.5 cm? FLOR(V,D): 3.9 cm2 ? sev ratio: 0.81 ? FLOR indexed to BSA (cm^2/m^2): 2.0 ? MV E max augustus: 81.5 cm/sec?TR max augustus: 216.9 cm/sec MV A max augustus: 85.7 cm/sec?TR max P.8 mmHg MV E/A: 0.95? PA V2 max: 96.9 cm/sec Med Peak E' Augustus: 4.7 cm/sec?PA V2 mean: 71.6 cm/sec E/E' med: 17.2? PA mean P.2 mmHg Lat Peak E' Augustus: 9.1 cm/sec?PA pr(Accel): 48.2 mmHg E/E' lat: 9.0 E/e' average: 13.1 MV dec time: 0.22 sec ? SV(LVOT): 125.4 ml ? Reading Physician:08:16 AM ECG Data Interpretation: Presentation EKG Sinus rhythm Ventricular rate 82 First-degree AV block PA interval 216 milliseconds Normal QRS Normal QTC Left bundle-branch block No concerning ST T wave changes Repeat EKG Unchanged from prior EKG 1747: Ventricular paced rhythm, rate 80 P are 208 QRS of [address] QTC [address] No acute ST changes appreciated. MDM Narrative Medical decision making narrative: Patient is currently asymptomatic. His left bundle-branch block on his EKG and is unchanged with repeat. Initial troponin greater than 99th percentile and 2nd troponin higher than 1st but does not meet AMI criteria however given his symptoms where he is having chest discomfort radiating to both of his arms every time he exerts himself and his elevated troponin and his high risk heart score patient was started on heparin. I do feel that patient would benefit from transfer to facility with Cardiology as he most likely will require catheterization. Multiple places contacted however there are no bed availability. Will continue to monitor patient here in the emergency department. Care turned over to Dr. Naik at change of shift to continue with disposition. Heena 08/13/22: Patient signed out to myself by Dr. Good for initially unstable angina which has now converted to NSTEMI his initial troponin was elevated 2nd troponin is positive patient has been chest pain-free overnight. He has received aspirin 324 mg, he is on heparin drip with bolus. EKG showed left bundle branch block. EKGs from yesterday x2 reviewed shows sinus rhythm with first-degree AV block, left axis bundle left axis deviation with no dynamic changes. Patient was seen independently evaluated by myself lungs are clear, heart is regular rate and rhythm, no swelling bilateral lower extremities. Patient is currently asymptomatic with no complaints. Reviewed his home medications he is on azathioprine and prednisone for myasthenia gravis he states he is never had crisis he has not relapsed about 12 years. 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 Plan for repeat labs this morning with his PTT for CBC patient was noted hemoglobin was decreased from priors, BNP, troponin and repeat EKG. These were reviewed patient hemoglobin is 8.9, will continue to trend patient may need blood back Protonix was initiated he is on prednisone daily with antibiotics and is now in a heparin drip his prior hemoglobin was 15 and December of 2021. Patient's CMP is negative with no acute change to renal function, troponin is now trending down words. Echo from this morning shows dyssynchronous pattern, EF of 50-55%, there is proximal septal thickening, right ventricles not well visualized but appears to have normal function mild dilation of the left atrium mild thickening of the mitral valve leaflets mild aortic calcification and sclerosis but no stenosis with mild aortic regurg and mild tricuspid regurg. No pericardial effusion, no pleural effusion and IVC is dilated and collapses greater than 50% with sniff. Patient troponin trending downward on recheck. Hemoglobin stable on recheck will continue to monitor. Patient signed out to Dr. Good while still attempting transfer patient has been called out and is on the regional hotline. <Gus Kim, DO - Last Filed: 08/14/22 16:17> Lab Data Labs: Lab Results 08/12/22 08/12/22 08/12/22 Range/Units 16:40 16:40 16:40 WBC 5.3 (4.5-11.0) X10^3/uL RBC 2.80 L (4.5-5.9) X10^6/uL Hgb 9.9 L (13.5-17.5) g/dL Hct 28.7 L (41-53) % MCV 102.4 H (80-100) fL MCH 35.4 H (26-34) PG MCHC 34.5 (30-36) % RDW 22.9 H (11.6-14.8) % Plt Count 189 (150-400) X10^3/uL Neut % (Auto) 88.8 H (50-75) % Lymph % (Auto) 4.6 L (25-40) % [place] % (Auto) 6.1 (3-14) % Eos % (Auto) 0.1 L (2-4) % Baso % (Auto) 0.4 (0-2) % Neut # (Auto) 4700 (4114-3281) /uL Lymph # (Auto) 200 L (3216-2047) /uL [place] # (Auto) 300 (0-900) /uL Eos # (Auto) 0 (0-450) /uL Baso # (Auto) 0 (0-100) /uL RBC Morphology See below Poikilocytosis 2+ H Anisocytosis 2+ H Macrocytosis 1+ H Tear Drop Cells 1+ H Ovalocytes 1+ H PT 34.3 H (10.1-12.7) SECONDS INR 3.0 H (0.9-1.3) APTT 47 H (26-36) SECONDS Sodium 135 L (137-145) mmol/L Potassium 5.0 (3.4-5.1) mmol/L Chloride 99 (98-107) mmol/L Carbon Dioxide 24 (22-32) mmol/L BUN 18 (9-20) mg/dL Creatinine 0.87 (0.66-1.25) mg/dL Estimated GFR > 60 (>60) mL/min BUN/Creatinine Ratio 20.7 (6-22) Glucose 114 H (80-110) mg/dL Calcium 9.0 (8.4-10.2) mg/dL Magnesium 2.1 (1.6-2.3) mg/dL Total Bilirubin 0.8 (0.2-1.3) mg/dL AST 26 (17-59) IU/L ALT 28 (<50) IU/L Alkaline Phosphatase 38 (38-126) U/L Total Creatine Kinase 41 L (55-170) U/L CK-MB (CK-2) TNP CK-MB (CK-2) Rel Index TNP Troponin I 0.048 H (0.01-0.034) ng/mL Total Protein 6.7 (6.3-8.2) g/dL Albumin 4.3 (3.5-5.0) g/dL Globulin 2.4 (1.7-4.1) g/dL Albumin/Globulin Ratio 1.8 (1.0-2.8) Lipase 59 (23-300) U/L SARS-CoV-2 (PCR) (Negative) 1208/12/22 08/13/22 Range/Units 19:50 21:50 03:24 WBC (4.5-11.0) X10^3/uL RBC (4.5-5.9) X10^6/uL Hgb (13.5-17.5) g/dL Hct (41-53) % MCV (80-100) fL MCH (26-34) PG MCHC (30-36) % RDW (11.6-14.8) % Plt Count (150-400) X10^3/uL Neut % (Auto) (50-75) % Lymph % (Auto) (25-40) % [place] % (Auto) (3-14) % Eos % (Auto) (2-4) % Baso % (Auto) (0-2) % Neut # (Auto) (7079-6608) /uL Lymph # (Auto) (1254-3292) /uL [place] # (Auto) (0-900) /uL Eos # (Auto) (0-450) /uL Baso # (Auto) (0-100) /uL RBC Morphology Poikilocytosis Anisocytosis Macrocytosis Tear Drop Cells Ovalocytes PT (10.1-12.7) SECONDS INR (0.9-1.3) APTT 128 H* D (26-36) SECONDS Sodium (137-145) mmol/L Potassium (3.4-5.1) mmol/L Chloride (98-107) mmol/L Carbon Dioxide (22-32) mmol/L BUN (9-20) mg/dL Creatinine (0.66-1.25) mg/dL Estimated GFR (>60) mL/min BUN/Creatinine Ratio (6-22) Glucose (80-110) mg/dL Calcium (8.4-10.2) mg/dL Magnesium (1.6-2.3) mg/dL Total Bilirubin (0.2-1.3) mg/dL AST (17-59) IU/L ALT (<50) IU/L Alkaline Phosphatase (38-126) U/L Total Creatine Kinase 39 L (55-170) U/L CK-MB (CK-2) TNP CK-MB (CK-2) Rel Index TNP Troponin I 0.105 H (0.01-0.034) ng/mL Total Protein (6.3-8.2) g/dL Albumin (3.5-5.0) g/dL Globulin (1.7-4.1) g/dL Albumin/Globulin Ratio (1.0-2.8) Lipase (23-300) U/L SARS-CoV-2 (PCR) Negative (Negative) 08/13/22 08/13/22 08/13/22 Range/Units 03:24 09:55 09:55 WBC 4.1 L (4.5-11.0) X10^3/uL RBC 2.55 L (4.5-5.9) X10^6/uL Hgb 8.9 L (13.5-17.5) g/dL Hct 25.9 L (41-53) % MCV 101.5 H (80-100) fL MCH 35.0 H (26-34) PG MCHC 34.5 (30-36) % RDW 23.0 H (11.6-14.8) % Plt Count 172 (150-400) X10^3/uL Neut % (Auto) 57.0 D (50-75) % Lymph % (Auto) 29.6 D (25-40) % [place] % (Auto) 11.1 (3-14) % Eos % (Auto) 1.4 L (2-4) % Baso % (Auto) 0.9 (0-2) % Neut # (Auto) 2300 (4406-2859) /uL Lymph # (Auto) 1200 (9489-7357) /uL [place] # (Auto) 500 (0-900) /uL Eos # (Auto) 100 (0-450) /uL Baso # (Auto) 0 (0-100) /uL RBC Morphology See below Poikilocytosis Anisocytosis 2+ H Macrocytosis Tear Drop Cells Ovalocytes PT (10.1-12.7) SECONDS INR (0.9-1.3) APTT (26-36) SECONDS Sodium 135 L (137-145) mmol/L Potassium 4.3 (3.4-5.1) mmol/L Chloride 99 (98-107) mmol/L Carbon Dioxide 30 (22-32) mmol/L BUN 13 (9-20) mg/dL Creatinine 0.67 (0.66-1.25) mg/dL Estimated GFR > 60 (>60) mL/min BUN/Creatinine Ratio 19.4 (6-22) Glucose 81 (80-110) mg/dL Calcium 7.9 L (8.4-10.2) mg/dL Magnesium (1.6-2.3) mg/dL Total Bilirubin (0.2-1.3) mg/dL AST (17-59) IU/L ALT (<50) IU/L Alkaline Phosphatase (38-126) U/L Total Creatine Kinase 48 L 50 L (55-170) U/L CK-MB (CK-2) TNP TNP CK-MB (CK-2) Rel Index TNP TNP Troponin I 0.589 H* 0.539 H* (0.01-0.034) ng/mL Total Protein (6.3-8.2) g/dL Albumin (3.5-5.0) g/dL Globulin (1.7-4.1) g/dL Albumin/Globulin Ratio (1.0-2.8) Lipase (23-300) U/L SARS-CoV-2 (PCR) (Negative) 08/13/22 08/13/22 08/13/22 Range/Units 09:55 16:00 16:00 WBC (4.5-11.0) X10^3/uL RBC (4.5-5.9) X10^6/uL Hgb 9.0 L (13.5-17.5) g/dL Hct 26.5 L (41-53) % MCV (80-100) fL MCH (26-34) PG MCHC (30-36) % RDW (11.6-14.8) % Plt Count (150-400) X10^3/uL Neut % (Auto) (50-75) % Lymph % (Auto) (25-40) % [place] % (Auto) (3-14) % Eos % (Auto) (2-4) % Baso % (Auto) (0-2) % Neut # (Auto) (8651-2723) /uL Lymph # (Auto) (2089-7580) /uL [place] # (Auto) (0-900) /uL Eos # (Auto) (0-450) /uL Baso # (Auto) (0-100) /uL RBC Morphology Poikilocytosis Anisocytosis Macrocytosis Tear Drop Cells Ovalocytes PT (10.1-12.7) SECONDS INR (0.9-1.3) APTT 68 H D 63 H (26-36) SECONDS Sodium (137-145) mmol/L Potassium (3.4-5.1) mmol/L Chloride (98-107) mmol/L Carbon Dioxide (22-32) mmol/L BUN (9-20) mg/dL Creatinine (0.66-1.25) mg/dL Estimated GFR (>60) mL/min BUN/Creatinine Ratio (6-22) Glucose (80-110) mg/dL Calcium (8.4-10.2) mg/dL Magnesium (1.6-2.3) mg/dL Total Bilirubin (0.2-1.3) mg/dL AST (17-59) IU/L ALT (<50) IU/L Alkaline Phosphatase (38-126) U/L Total Creatine Kinase (55-170) U/L CK-MB (CK-2) CK-MB (CK-2) Rel Index Troponin I (0.01-0.034) ng/mL Total Protein (6.3-8.2) g/dL Albumin (3.5-5.0) g/dL Globulin (1.7-4.1) g/dL Albumin/Globulin Ratio (1.0-2.8) Lipase (23-300) U/L SARS-CoV-2 (PCR) (Negative) 08/13/22 08/14/22 08/14/22 Range/Units 21:27 04:30 09:28 WBC (4.5-11.0) X10^3/uL RBC (4.5-5.9) X10^6/uL Hgb (13.5-17.5) g/dL Hct (41-53) % MCV (80-100) fL MCH (26-34) PG MCHC (30-36) % RDW (11.6-14.8) % Plt Count (150-400) X10^3/uL Neut % (Auto) (50-75) % Lymph % (Auto) (25-40) % [place] % (Auto) (3-14) % Eos % (Auto) (2-4) % Baso % (Auto) (0-2) % Neut # (Auto) (4841-3025) /uL Lymph # (Auto) (7449-5642) /uL [place] # (Auto) (0-900) /uL Eos # (Auto) (0-450) /uL Baso # (Auto) (0-100) /uL RBC Morphology Poikilocytosis Anisocytosis Macrocytosis Tear Drop Cells Ovalocytes PT (10.1-12.7) SECONDS INR (0.9-1.3) APTT 69 H 57 H D 57 H (26-36) SECONDS Sodium (137-145) mmol/L Potassium (3.4-5.1) mmol/L Chloride (98-107) mmol/L Carbon Dioxide (22-32) mmol/L BUN (9-20) mg/dL Creatinine (0.66-1.25) mg/dL Estimated GFR (>60) mL/min BUN/Creatinine Ratio (6-22) Glucose (80-110) mg/dL Calcium (8.4-10.2) mg/dL Magnesium (1.6-2.3) mg/dL Total Bilirubin (0.2-1.3) mg/dL AST (17-59) IU/L ALT (<50) IU/L Alkaline Phosphatase (38-126) U/L Total Creatine Kinase (55-170) U/L CK-MB (CK-2) CK-MB (CK-2) Rel Index Troponin I (0.01-0.034) ng/mL Total Protein (6.3-8.2) g/dL Albumin (3.5-5.0) g/dL Globulin (1.7-4.1) g/dL Albumin/Globulin Ratio (1.0-2.8) Lipase (23-300) U/L SARS-CoV-2 (PCR) (Negative) 08/14/22 08/14/22 Range/Units 09:28 09:28 WBC 3.8 L (4.5-11.0) X10^3/uL RBC 2.44 L (4.5-5.9) X10^6/uL Hgb 8.5 L (13.5-17.5) g/dL Hct 24.8 L (41-53) % MCV 101.7 H (80-100) fL MCH 34.9 H (26-34) PG MCHC 34.3 (30-36) % RDW 22.9 H (11.6-14.8) % Plt Count 165 (150-400) X10^3/uL Neut % (Auto) 55.1 (50-75) % Lymph % (Auto) 33.5 (25-40) % [place] % (Auto) 9.1 (3-14) % Eos % (Auto) 1.4 L (2-4) % Baso % (Auto) 0.9 (0-2) % Neut # (Auto) 2100 (4323-6446) /uL Lymph # (Auto) 1300 (4246-6991) /uL [place] # (Auto) 300 (0-900) /uL Eos # (Auto) 100 (0-450) /uL Baso # (Auto) 0 (0-100) /uL RBC Morphology See below Poikilocytosis 1+ H Anisocytosis 2+ H Macrocytosis 1+ H Tear Drop Cells Ovalocytes PT (10.1-12.7) SECONDS INR (0.9-1.3) APTT (26-36) SECONDS Sodium 134 L (137-145) mmol/L Potassium 3.8 (3.4-5.1) mmol/L Chloride 100 (98-107) mmol/L Carbon Dioxide 26 (22-32) mmol/L BUN 15 (9-20) mg/dL Creatinine 0.68 (0.66-1.25) mg/dL Estimated GFR > 60 (>60) mL/min BUN/Creatinine Ratio 22.1 H (6-22) Glucose 102 (80-110) mg/dL Calcium 8.1 L (8.4-10.2) mg/dL Magnesium (1.6-2.3) mg/dL Total Bilirubin (0.2-1.3) mg/dL AST (17-59) IU/L ALT (<50) IU/L Alkaline Phosphatase (38-126) U/L Total Creatine Kinase 31 L (55-170) U/L CK-MB (CK-2) TNP CK-MB (CK-2) Rel Index TNP Troponin I 0.136 H* (0.01-0.034) ng/mL Total Protein (6.3-8.2) g/dL Albumin (3.5-5.0) g/dL Globulin (1.7-4.1) g/dL Albumin/Globulin Ratio (1.0-2.8) Lipase (23-300) U/L SARS-CoV-2 (PCR) (Negative) MDM Narrative Medical decision making narrative: Patient is currently asymptomatic. His left bundle-branch block on his EKG and is unchanged with repeat. Initial troponin greater than 99th percentile and 2nd troponin higher than 1st but does not meet AMI criteria however given his symptoms where he is having chest discomfort radiating to both of his arms every time he exerts himself and his elevated troponin and his high risk heart score patient was started on heparin. I do feel that patient would benefit from transfer to facility with Cardiology as he most likely will require catheterization. Multiple places contacted however there are no bed availability. Will continue to monitor patient here in the emergency department. Care turned over to Dr. Naik at change of shift to continue with disposition. Heena 08/13/22: Patient signed out to myself by Dr. Good for initially unstable angina which has now converted to NSTEMI his initial troponin was elevated 2nd troponin is positive patient has been chest pain-free overnight. He has received aspirin 324 mg, he is on heparin drip with bolus. EKG showed left bundle branch block. EKGs from yesterday x2 reviewed shows sinus rhythm with first-degree AV block, left axis bundle left axis deviation with no dynamic changes. Patient was seen independently evaluated by myself lungs are clear, heart is regular rate and rhythm, no swelling bilateral lower extremities. Patient is currently asymptomatic with no complaints. Reviewed his home medications he is on azathioprine and prednisone for myasthenia gravis he states he is never had crisis he has not relapsed about 12 years. 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 Plan for repeat labs this morning with his PTT for CBC patient was noted hemoglobin was decreased from priors, BNP, troponin and repeat EKG. These were reviewed patient hemoglobin is 8.9, will continue to trend patient may need blood back Protonix was initiated he is on prednisone daily with antibiotics and is now in a heparin drip his prior hemoglobin was 15 and December of 2021. Patient's CMP is negative with no acute change to renal function, troponin is now trending down words. Echo from this morning shows dyssynchronous pattern, EF of 50-55%, there is proximal septal thickening, right ventricles not well visualized but appears to have normal function mild dilation of the left atrium mild thickening of the mitral valve leaflets mild aortic calcification and sclerosis but no stenosis with mild aortic regurg and mild tricuspid regurg. No pericardial effusion, no pleural effusion and IVC is dilated and collapses greater than 50% with sniff. Patient troponin trending downward on recheck. Hemoglobin stable on recheck will continue to monitor. Patient signed out to Dr. Good while still attempting transfer patient has been called out and is on the regional hotline. Dr Good: overnight 08/13-08/14: Assumed care. View patient's 24 hour events. Reviewed his echocardiogram. He continues to be on heparin. Is asymptomatic. Troponin seems to have peaked and repeat labs ordered for morning. Patient does still require transfer to facility that has Cardiology/catheterization capability. Still no bed availability. Care turned over to Dr. Kim to continue to observe until disposition can be obtained. [0700] (Julio) Patient received in sign out from Dr. Soriano]. I have reviewed the clinical course and performed an independent history and physical exam. Patient aware of diagnosis and plan, no current questions. Currently asymptomatic. Labs pending 1330 - has called back, possible beds. Request we place call to [facility]. 1400 - [facility] has called and gives authorization for transfer 1500 - call back from Dr. Gamble (hospitalist at ) who was happy to accept this patient in transfer <Gus Kim, DO - Last Filed: 08/14/22 16:17> Critical Care Time Critical Care Time: Yes Total Critical Care Time: 45 Attestation: The high probability of a clinically significant, sudden or life threatening deterioration of the [CV] system(s) required my full and direct attention, intervention and personal management. The aggregate critical care time was [45] minutes. This time is in addition to time spent performing reported procedures but includes the following: [x] Data Review and interpretation [x] Patient assessment and monitoring of vital signs [x] Documentation [x] Medication orders and management Discharge Plan Departure Patient Disposition: [facility] Clinical Impression: Non-ST elevation AR (NSTEMI), Anemia Prescriptions: No Action vitamin D3-folic acid [Ciferex] 3,775 UNITS/1 MG capsule 1 cap PO Qty: 0 CA PANTOTHENATE/FOLIC ACID/VIT (MULTIVITAMIN) 1 tab PO QDAY Qty: 0 Rx Instructions: 1/2 dose a few times a week calcium carbonate [Tums E-X] 300 mg (750 mg) tablet,chewable 300 mg PO DAILY PRNQty: 0 Xarelto 20 mg tablet 20 mg PO DAILY Qty: 90 4RF testosterone cypionate [Depo-Testosterone] 200 mg/mL oil 300 mg IM Q4W Qty: 6 2RF Rx Instructions: discard remaining drug in single use vials prednisone 10 mg tablet 10 mg PO DAILY Qty: 90 3RF Rx Instructions: Takes total of 13 mg daily linezolid 600 mg tablet 600 mg PO DAILY clarithromycin 500 mg tablet 500 mg PO BID Label Comments: Take 1 tablet (500 mg total) by mouth 2 (two) times a day (DME) Disabled Parking See Rx Instructions .ROUTE .MEDSUPPLY Qty: 1 0RF Rx Instructions: Patient qualifies for disabled parking as per the attached form. Calcium 1,000 mg 1 tab PO DAILY azathioprine [Imuran] 50 mg tablet 200 mg PO DAILY Referrals: Eliu Zendejas MD [Primary Care Provider] -
[2022-08-12 20:52] LABS: Troponin I 0.105 ng/mL (0.01-0.034)
[2022-08-12] MEDS: HEPARIN 5,000 UNIT/ML VIAL 5000 UNIT IV (21:28)
[2022-08-12] MEDS: HEPARIN DRIP 25,000 UNIT/500 ML IV.SOLN 20 UNIT IV (21:35)
--- NOTE | 2022-08-12 21:54 | PC.NURSE ---
Provider Latisha approved pt to take his home medications: azathioprine 100mg tab PO Clarithromycin 500mg 1 tab PO.
[2022-08-12 22:10] LABS: COVID19 -Nasal RAPID Negative (Negative)
--- NOTE | 2022-08-12 22:46 | PC.NURSE ---
Called [facility], no beds, no wait list [facility]- no beds x at least 24-48 hours. Placed on wait list [facility]: no beds for foreseeable future. No waitlist. Report to Carlos AGUILAR
--- NOTE | 2022-08-12 23:20 | PC.NURSE ---
Report received - assumed care of pt at this time - heparin infusing without concern - IV patent without redness or swelling - pt alert and oriented - PWD with respirations equal and unlabored bilaterally
[2022-08-13] VITALS (52 sets, daily range): BP systolic 112–135; BP diastolic 64–85; PULSE 62–117; RESP 12–33; O2SAT 95–100
--- NOTE | 2022-08-13 | PC.NURSE ---
Resting quietly in NAD - no needs voiced - PWD with respirations equal and unlabored bilaterally - heparin continues to infuse without concern
--- NOTE | 2022-08-13 01:00 | PC.NURSE ---
No changes in pt status at this time
--- NOTE | 2022-08-13 01:46 | PC.NURSE ---
Pt on wait list @ [facility] and with [facility]. No wait list and or at capacity at the following: [facility], [facility]
--- NOTE | 2022-08-13 02:00 | PC.NURSE ---
No changes in pt status at this time
--- NOTE | 2022-08-13 02:04 | PC.NURSE ---
2200 Pt provided a hospital bed for comfort
--- NOTE | 2022-08-13 03:00 | PC.NURSE ---
No changes at this time in pt status or assessment
--- NOTE | 2022-08-13 03:30 | PC.NURSE ---
Labs drawn at this time by RN - given to sleep lab technician - labelled at bedside Pt awakens to RN at bedside - states that he normally wears CPAP at night but does not have it with him - placed on 2L of O2 via NC prophylactically - tolerates well
[2022-08-13 03:48] LABS: Creatine Kinase 48 U/L (55-170)
[2022-08-13 04:02] LABS: PTT Partial Thromboplastin Tim 128 SECONDS (26-36)
--- NOTE | 2022-08-13 04:15 | PC.NURSE ---
Resting quietly in darkened room with eyes closed - VSS - no needs voiced at this time - PWD with respirations equal and unlabored bilaterally - heparin continues to infuse without concern
[2022-08-13 04:16] LABS: Troponin I 0.589 ng/mL (0.01-0.034)
--- NOTE | 2022-08-13 05:03 | PC.NURSE ---
Urinal given at this time
--- NOTE | 2022-08-13 05:15 | PC.NURSE ---
Urinal given at this time - 250ml output
--- NOTE | 2022-08-13 06:00 | PC.NURSE ---
Addendum entered by Lucila Goff R.N. 08/13/22 06:23: Resting quietly in NAD - no needs voiced - Respirations equal and unlabored bilaterally Original Note: No changes in pt status
--- NOTE | 2022-08-13 06:11 | DI.ECHO.S_ITS ---
[facility]---------+ [facility] +---------+ : : [address] : : : : [id number] : : : : Phone: [phone] Echocardiogram Report + + :Name: SEBASTIAN LAWSON Study Date: 08/13/2022 Height: 69.5 in: :[facility] ReadingLocation: Weight: 201 lb : : Gender: Male BSA: 2.1 m2 : :: 1945 Age: 77 yrs BP: 127/72 mmHg: :Reason For Study: NSTEMI : :Ordering Physician: CADENCE, : :MEENA Performed By: Laura Yu : :Referring: MEENA VILA : + + Interpretation Summary 1) Normal left ventricular size, thickness, and systolic function (EF 55-60%). 2) There is a significant dyssynchronous contraction pattern, consistent with a conduction abnormality. 3) Grossly, normal right ventricular size and function. 4) No significant valvular abnormalities. 5) Compared to the Echo done 05/25/2018, no significant change. Procedure: A two-dimensional transthoracic echocardiogram with color flow and Doppler was performed. The study quality was technically adequate. Comparison is made with the echocardiogram of . The heart rate ranged between 61-75 bpm during the study. Left Ventricle: The left ventricle is normal in size. Left ventricular wall thickness is normal. Proximal septal thickening is noted. The ejection fraction is estimated to be 55-60%. There is a significant dyssynchronous contraction pattern, consistent with a conduction abnormality. Right Ventricle: The right ventricle is not well visualized. The right ventricle is grossly normal size. The right ventricular systolic function is normal. Atria: The left atrium is mildly dilated. Right atrial size is normal. There is no Doppler evidence for an interatrial shunt. Mitral Valve: The mitral valve leaflets appear mildly thickened, but open well. There is mild mitral regurgitation. Aortic Valve: The aortic valve is trileaflet. The aortic valve is mildly calcified. There is mild aortic valve sclerosis. There is no aortic valve stenosis. There is mild aortic regurgitation. Tricuspid Valve: The tricuspid valve is normal in structure and function. There is mild tricuspid regurgitation. The right ventricular systolic pressure is estimated to be at least 27 mmHg based on an estimated right atrial pressure of 8 mm Hg. Pulmonic Valve: The pulmonic valve is not well seen, but is grossly normal. There is trace pulmonic regurgitation. Great Vessels: The aortic root is borderline dilated. The ascending aorta is at the upper limits of normal in size. The IVC is dilated (diameter is greater than 2.1 cm) yet it collapses greater than 50% with a sniff. This suggests a right atrial pressure of 8 mm Hg. Pericardium/ Pleura There is no pericardial effusion. There is no pleural effusion. MMode/2D Measurements & Calculations LVIDd: 4.3 cm LVOT diam: 2.5 cm LVIDs: 2.8 cm Ao root diam: 3.9 cm FS: 35.9 % asc Aorta Diam: 3.8 cm IVSd: 1.2 cm Ao Arch Diam (Prox Trans): 2.6 cm LVPWd: 0.99 cm LV merida. diameter/BSA (cm/m^2): 2.1 LV sys. diameter/BSA (cm/m^2): 1.3 LA A2 area: 24.1 cm2 RA long axis: 5.6 cm LA A4 area: 20.1 cm2 RA area: 17.4 cm2 LA length (vol): 5.5 cm RA vol: 45.7 ml LA vol: 74.8 ml RA : 22.0 ml/m2 LA vol index: 35.9 ml/m2 IVC diam: 2.2 cm TAPSE: 2.1 cm Doppler Measurements & Calculations Ao V2 max: 139.6 cm/sec LVOT Max Augustus: 107.3 cm/sec Ao V2 mean: 99.7 cm/sec LV V1 max P.6 mmHg Ao max P.8 mmHg LV V1 VTI: 24.6 cm Ao mean P.4 mmHg FLOR(I,D): 4.1 cm2 Ao V2 VTI: 30.5 cm FLOR(V,D): 3.9 cm2 sev ratio: 0.81 FLOR indexed to BSA (cm^2/m^2): 2.0 MV E max augustus: 81.5 cm/sec TR max augustus: 216.9 cm/sec MV A max augustus: 85.7 cm/sec TR max P.8 mmHg MV E/A: 0.95 PA V2 max: 96.9 cm/sec Med Peak E' Augustus: 4.7 cm/sec PA V2 mean: 71.6 cm/sec E/E' med: 17.2 PA mean P.2 mmHg Lat Peak E' Augustus: 9.1 cm/sec PA pr(Accel): 48.2 mmHg E/E' lat: 9.0 E/e' average: 13.1 MV dec time: 0.22 sec SV(OT): 125.4 ml Reading Physician:08:16 AM
--- NOTE | 2022-08-13 07:17 | PC.NURSE ---
Report to dayshift RN team - care relinquished at this time
[2022-08-13] MEDS: PREDNISONE 5 MG 10 MG PO (09:45)
[2022-08-13] MEDS: PANTOPRAZOLE 40 MG VIAL IV (09:45)
[2022-08-13 10:06] LABS: Add Manual Diff / Slide Review NO; Basophils Absolute Auto 0 /uL (0-100); Basophils Percent Auto 0.9 % (0-2); Eosinophils Absolute Auto 100 /uL (0-450); Eosinophils Percent Auto 1.4 % (2-4); Hematocrit 25.9 % (41-53); Hemoglobin 8.9 g/dL (13.5-17.5); Lymphocytes Absolute Auto 1200 /uL (1100-4500); Lymphocytes Percent Auto 29.6 % (25-40); Mean Corpuscular HGB Conc 34.5 % (30-36); Mean Corpuscular Volume 101.5 fL (80-100); Monocytes Absolute Auto 500 /uL (0-900); Monocytes Percent Auto 11.1 % (3-14); Neutrophils Absolute Auto 2300 /uL (1500-7000); Platelet Count 172 X10^3/uL (150-400); Red Blood Cell Count 2.55 X10^6/uL (4.5-5.9); White Blood Cell Count 4.1 X10^3/uL (4.5-11.0)
[2022-08-13 10:18] LABS: BUN Creatinine Ratio 19.4 (6-22); Blood Urea Nitrogen 13 mg/dL (9-20); Calcium 7.9 mg/dL (8.4-10.2); Carbon Dioxide 30 mmol/L (22-32); Chloride 99 mmol/L (98-107); Creatine Kinase 50 U/L (55-170); Estimated Glomerular Filt Rate > 60 mL/min (>60); Glucose 81 mg/dL (80-110); HEMOLYSIS 33 (0-50); Potassium 4.3 mmol/L (3.4-5.1); Sodium 135 mmol/L (137-145)
[2022-08-13 10:22] LABS: PTT Partial Thromboplastin Tim 68 SECONDS (26-36)
[2022-08-13 11:06] LABS: Troponin I 0.539 ng/mL (0.01-0.034)
[2022-08-13 11:10] LABS: Anisocytosis 2+
[2022-08-13] MEDS: LINEZOLID 600 MG PO (11:17)
[2022-08-13] MEDS: CLARITHROMYCIN 500 MG PO ×2 (12:18→22:14)
[2022-08-13] MEDS: AZATHIOPRINE 50 MG 100 MG PO ×2 (12:18→22:14)
[2022-08-13 16:06] LABS: Hematocrit 26.5 % (41-53)
[2022-08-13 16:15] LABS: PTT Partial Thromboplastin Tim 63 SECONDS (26-36)
[2022-08-13] MEDS: HEPARIN DRIP 25,000 UNIT/500 ML IV.SOLN 20 UNIT IV (21:38)
[2022-08-13 21:42] LABS: PTT Partial Thromboplastin Tim 69 SECONDS (26-36)
[2022-08-14] VITALS (26 sets, daily range): BP systolic 104–131; BP diastolic 64–75; PULSE 67–92; RESP 13–26; O2SAT 93–99
[2022-08-14 04:48] LABS: PTT Partial Thromboplastin Tim 57 SECONDS (26-36)
--- NOTE | 2022-08-14 05:01 | PC.NURSE ---
PTT drawn this am, it is within range, no change in heparin at this time.
[2022-08-14] MEDS: PANTOPRAZOLE 40 MG VIAL IV (09:19)
[2022-08-14 09:36] LABS: Add Manual Diff / Slide Review NO; Basophils Absolute Auto 0 /uL (0-100); Basophils Percent Auto 0.9 % (0-2); Eosinophils Absolute Auto 100 /uL (0-450); Eosinophils Percent Auto 1.4 % (2-4); Hematocrit 24.8 % (41-53); Hemoglobin 8.5 g/dL (13.5-17.5); Lymphocytes Absolute Auto 1300 /uL (1100-4500); Lymphocytes Percent Auto 33.5 % (25-40); Mean Corpuscular HGB Conc 34.3 % (30-36); Mean Corpuscular Hemoglobin 34.9 PG (26-34); Mean Corpuscular Volume 101.7 fL (80-100); Monocytes Absolute Auto 300 /uL (0-900); Monocytes Percent Auto 9.1 % (3-14); Neutrophils Absolute Auto 2100 /uL (1500-7000); Neutrophils Percent Auto 55.1 % (50-75); Platelet Count 165 X10^3/uL (150-400); Red Blood Cell Count 2.44 X10^6/uL (4.5-5.9); Red Cell Distribution Width 22.9 % (11.6-14.8); White Blood Cell Count 3.8 X10^3/uL (4.5-11.0)
[2022-08-14 09:45] LABS: PTT Partial Thromboplastin Tim 57 SECONDS (26-36)
[2022-08-14 09:49] LABS: BUN Creatinine Ratio 22.1 (6-22); Blood Urea Nitrogen 15 mg/dL (9-20); Calcium 8.1 mg/dL (8.4-10.2); Carbon Dioxide 26 mmol/L (22-32); Chloride 100 mmol/L (98-107); Creatine Kinase 31 U/L (55-170); Estimated Glomerular Filt Rate > 60 mL/min (>60); Glucose 102 mg/dL (80-110); Potassium 3.8 mmol/L (3.4-5.1); Sodium 134 mmol/L (137-145)
[2022-08-14 10:03] LABS: Anisocytosis 2+; Macrocytosis 1+; Poikilocytosis 1+
[2022-08-14 10:22] LABS: HEMOLYSIS 42 (0-50)
[2022-08-14 10:23] LABS: Troponin I 0.136 ng/mL (0.01-0.034)
--- NOTE | 2022-08-14 11:41 | PC.NURSE ---
pt gave himself a sponge bath, oral care
[2022-08-14] MEDS: AZATHIOPRINE 50 MG 100 MG PO (13:54)
[2022-08-14] MEDS: CLARITHROMYCIN 500 MG PO (13:54)
[2022-08-14] MEDS: LINEZOLID 600 MG PO (13:54)
--- NOTE | 2022-08-14 16:29 | PC.NURSE ---
pt has all of his Myastenia Gravis meds. Rigo from pharmacy handed to patient.
--- NOTE | 2022-08-14 18:50 | PC.NURSE ---
reports to transfer centerKatharina. pt transported to [facility] with Heparin infusing at 20 ml/hour or 1,000 units per hour.
== END 2022-08-14 16:36 | disposition short-term general hospital (02) ==
PROVIDERS: Emergency Medicine; Emergency Provider Emergency Medicine; Family Provider Internal Medicine; PCP Internal Medicine
DX: I21.4 Non-ST elevation (NSTEMI) myocardial infarction (principal); D64.9 Anemia, unspecified; R79.89 Other specified abnormal findings of blood chemistry; Z79.01 Long term (current) use of anticoagulants; Z20.822 Contact with and (suspected) exposure to COVID-19; Z95.0 Presence of cardiac pacemaker
CPT/HCPCS: 36415; 71045; 80048; 80053; 82550; 83690; 83735; 84484; 85014; 85018; 85025; 85610; 85730; 87635; 93005; 93010; 93306; 96365; 96366; 96375; 99285; 99291; C9803; C9113; J1644; J7500

== ENCOUNTER → 2022-08-21 10:27 | Outpatient (CLI) | payer OTHER, SELFPAY ==
[2022-08-21 11:23] LABS: Add Manual Diff / Slide Review NO; Basophils Absolute Auto 0 /uL (0-100); Basophils Percent Auto 0.3 % (0-2); Eosinophils Absolute Auto 100 /uL (0-450); Eosinophils Percent Auto 1.5 % (2-4); Hematocrit 22.5 % (41-53); Hemoglobin 7.6 g/dL (13.5-17.5); Lymphocytes Absolute Auto 800 /uL (1100-4500); Lymphocytes Percent Auto 17.2 % (25-40); Mean Corpuscular Hemoglobin 36.8 PG (26-34); Mean Corpuscular Volume 108.1 fL (80-100); Monocytes Absolute Auto 600 /uL (0-900); Monocytes Percent Auto 13.5 % (3-14); Neutrophils Absolute Auto 3000 /uL (1500-7000); Neutrophils Percent Auto 67.5 % (50-75); Platelet Count 308 X10^3/uL (150-400); Red Blood Cell Count 2.08 X10^6/uL (4.5-5.9); White Blood Cell Count 4.4 X10^3/uL (4.5-11.0)
[2022-08-21 11:38] LABS: Anisocytosis 1+; Nucleated Red Blood Cells 3 #/Diff; Poikilocytosis 1+
[2022-08-21 11:49] LABS: BUN Creatinine Ratio 16.7 (6-22); Blood Urea Nitrogen 16 mg/dL (9-20); Calcium 8.7 mg/dL (8.4-10.2); Carbon Dioxide 24 mmol/L (22-32); Chloride 98 mmol/L (98-107); Estimated Glomerular Filt Rate > 60 mL/min (>60); Glucose 98 mg/dL (80-110); HEMOLYSIS < 15 (0-50); Sodium 134 mmol/L (137-145)
== END ==
PROVIDERS: Family Provider Internal Medicine; PCP Internal Medicine; Referring Provider Internal Medicine; Visit Provider Internal Medicine
DX: D64.9 Anemia, unspecified (principal); D75.89 Other specified diseases of blood and blood-forming organs
CPT/HCPCS: 36415; 80048; 85025

== ENCOUNTER → 2022-11-19 08:26 | Outpatient (CLI) | payer OTHER, SELFPAY ==
[2022-11-19 10:28] LABS: Cholesterol 132 mg/dL (140-199); HDL Cholesterol 63 mg/dL (40-60); LDL Cholesterol Calculated 52 mg/dL (<100); Triglycerides 86 mg/dL (35-150)
== END ==
PROVIDERS: Family Provider Internal Medicine; PCP Internal Medicine; Referring Provider Internal Medicine Cardiovascular Disease; Visit Provider Internal Medicine Cardiovascular Disease
DX: E78.2 Mixed hyperlipidemia (principal)
CPT/HCPCS: 36415; 80061

== ENCOUNTER → 2022-12-02 11:28 | Outpatient (CLI) | payer OTHER, SELFPAY ==
[2022-12-02 12:28] LABS: Add Manual Diff / Slide Review NO; Basophils Absolute Auto 0 /uL (0-100); Basophils Percent Auto 0.4 % (0-2); Eosinophils Absolute Auto 100 /uL (0-450); Eosinophils Percent Auto 0.5 % (2-4); Hematocrit 39.2 % (41-53); Hemoglobin 13.1 g/dL (13.5-17.5); Lymphocytes Absolute Auto 600 /uL (1100-4500); Lymphocytes Percent Auto 6.4 % (25-40); Mean Corpuscular HGB Conc 33.3 % (30-36); Mean Corpuscular Hemoglobin 34.9 PG (26-34); Mean Corpuscular Volume 104.7 fL (80-100); Monocytes Absolute Auto 800 /uL (0-900); Neutrophils Absolute Auto 8200 /uL (1500-7000); Neutrophils Percent Auto 84.7 % (50-75); Platelet Count 158 X10^3/uL (150-400); Red Blood Cell Count 3.74 X10^6/uL (4.5-5.9); Red Cell Distribution Width 18.9 % (11.6-14.8); White Blood Cell Count 9.6 X10^3/uL (4.5-11.0)
[2022-12-02 13:05] LABS: Alanine Aminotransferase 26 IU/L (<50); Albumin 3.7 g/dL (3.5-5.0); Albumin Globulin Ratio 1.7 (1.0-2.8); Alkaline Phosphatase 31 U/L (38-126); Aspartate Aminotransferase 30 IU/L (17-59); BUN Creatinine Ratio 16.8 (6-22); Bilirubin Total 0.6 mg/dL (0.2-1.3); Blood Urea Nitrogen 16 mg/dL (9-20); Calcium 9.3 mg/dL (8.4-10.2); Carbon Dioxide 32 mmol/L (22-32); Chloride 101 mmol/L (98-107); Estimated Glomerular Filt Rate > 60 mL/min (>60); Globulin 2.2 g/dL (1.7-4.1); Glucose 86 mg/dL (80-110); HEMOLYSIS < 15 (0-50); Sodium 138 mmol/L (137-145); Total Protein 5.9 g/dL (6.3-8.2)
== END ==
PROVIDERS: Family Provider Internal Medicine; PCP Internal Medicine; Referring Provider Internal Medicine Cardiovascular Disease; Visit Provider Internal Medicine Cardiovascular Disease
DX: E78.2 Mixed hyperlipidemia (principal); I25.10 Atherosclerotic heart disease of native coronary artery without angina pectoris; I44.7 Left bundle-branch block, unspecified
CPT/HCPCS: 36415; 80053; 85025

== ENCOUNTER → 2023-06-11 07:55 | Outpatient (CLI) | payer OTHER, SELFPAY ==
[2023-06-11 08:57] LABS: Add Manual Diff / Slide Review NO; Basophils Absolute Auto 0 /uL (0-100); Basophils Percent Auto 0.6 % (0-2); Eosinophils Absolute Auto 100 /uL (0-450); Eosinophils Percent Auto 0.9 % (2-4); Hematocrit 47.3 % (41-53); Lymphocytes Absolute Auto 1100 /uL (1100-4500); Lymphocytes Percent Auto 13.7 % (25-40); Mean Corpuscular HGB Conc 33.9 % (30-36); Mean Corpuscular Hemoglobin 34.4 PG (26-34); Mean Corpuscular Volume 101.4 fL (80-100); Monocytes Absolute Auto 1000 /uL (0-900); Monocytes Percent Auto 11.7 % (3-14); Neutrophils Absolute Auto 6000 /uL (1500-7000); Neutrophils Percent Auto 73.1 % (50-75); Platelet Count 163 X10^3/uL (150-400); Red Blood Cell Count 4.66 X10^6/uL (4.5-5.9); Red Cell Distribution Width 17.3 % (11.6-14.8); White Blood Cell Count 8.2 X10^3/uL (4.5-11.0)
[2023-06-11 09:33] LABS: Alanine Aminotransferase 26 IU/L (<50); Albumin 3.7 g/dL (3.5-5.0); Albumin Globulin Ratio 1.4 (1.0-2.8); Alkaline Phosphatase 34 U/L (38-126); Aspartate Aminotransferase 33 IU/L (17-59); BUN Creatinine Ratio 12.2 (6-22); Blood Urea Nitrogen 11 mg/dL (9-20); Calcium 9.7 mg/dL (8.4-10.2); Carbon Dioxide 29 mmol/L (22-32); Chloride 100 mmol/L (98-107); Cholesterol 145 mg/dL (140-199); Estimated Glomerular Filt Rate > 60 mL/min (>60); Globulin 2.6 g/dL (1.7-4.1); Glucose 78 mg/dL (80-110); HDL Cholesterol 60 mg/dL (40-60); HEMOLYSIS 18 (0-50); LDL Cholesterol Calculated 58 mg/dL (<100); Potassium 4.6 mmol/L (3.4-5.1); Sodium 134 mmol/L (137-145); Total Protein 6.3 g/dL (6.3-8.2); Triglycerides 134 mg/dL (35-150)
[2023-06-11 10:16] LABS: Bilirubin Total 1.1 mg/dL (0.2-1.3)
[2023-06-21 08:43] LABS: Percent Free Testosterone 3.33 % (1.50-4.20); Testosterone Free 55.96 ng/dL (5.00-21.00)
== END ==
PROVIDERS: Family Provider Internal Medicine; PCP Internal Medicine; Referring Provider Internal Medicine; Visit Provider Internal Medicine
DX: D53.9 Nutritional anemia, unspecified (principal); I25.10 Atherosclerotic heart disease of native coronary artery without angina pectoris; G70.00 Myasthenia gravis without (acute) exacerbation; E29.1 Testicular hypofunction; E78.2 Mixed hyperlipidemia
CPT/HCPCS: 36415; 80053; 80061; 84402; 84403; 85025

== ENCOUNTER 2023-06-23 08:30 | Outpatient (RCR) | payer OTHER, SELFPAY ==
--- OUTSIDE RECORDS SUMMARY | 2023-07-16 14:48 | XMS_ITS | Referral Summary ---
Author Name Unknown Organization [facility] Address [address] [place] [address] Care Team Providers Care Broommaking Supervisor Name Role Phone Eliu Zendejas Primary Care Provider [phone] Reason for Referral * Hospital - Outpatient (Urgent) - Authorized Specialty Diagnoses / Procedures Referred By Tramaine prado Referred To Contact Cardiac Rehabilitation Diagnoses History of placement of stent in LAD coronary artery Beka Jay MD [address] [place] [address] [address] [place] [address] [address] Referral ID Status Reason Start Date Expiration Date V isits Requested Visits Authorized [id number] Authorized 12/07/2022 12/08/2023 36 36 Reason for Visit * Reason Comments Coronary Artery Disease Hyperlipidemia Other PPM, CHB * Evaluate and Treat (Urgent) - Authorized Specialty Diagnoses / Procedures Referred By Contaspen t Referred To Contact Cardiovascular Disease / Cardiology Diagnoses Presence of coronary angioplasty implant and graft Urgent consult to establish care Procedures CT OFFICE/OUTPATIENT ESTABLISHED MOD MDM 30-39 MIN NEW PATIENT Eliu Zendejas [address] [address] Beka Jay MD [address] [place] [address] [address] [place] [address] Referral ID Status Reason Start Date Expiration Date V isits Requested Visits Authorized [id number] Authorized 08/25/2022 08/25/2023 6 6 Encounter Details Date Type Department Care Team Description 12/02/2022 10:30 AM PDT Office Visit [facility] Cardiology [address], [place] [address] Beka Jay MD [address] [place] [address] [address] [place], [place] [id number] Coronary artery disease involving [place] coronary artery of [place] heart without angina pectoris (Primary Dx); LBBB (left bundle branch block); Complete heart block (CMS-HCC); Presence of permanent cardiac pacemaker; History of placement of stent in LAD coronary artery; Mixed hyperlipidemia Allergies No known active allergiesdocumented as of this encounter (statuses as of 05/06/2023) Medications Medication Sig Dispensed Refills Start Date End Date Status azaTHIOprine (IMURAN) 50 mg tablet 0 03/09/2022 Active ketoconazole (NIZORAL) 2 % cream APPLY LIBERAL AMOUNT TO AFFECTED AREA(S) TWO TIMES DAILY FOR 3 WEEKS 0 02/26/2022 Active predniSONE (DELTASONE) 10 mg tablet 0 03/09/2022 Active testosterone cypionate (DEPO-TESTOTERON E) 200 mg/mL injection INJECT 300MG (1.5ML) INTO THE MUSCLE EVERY 4 WEEKS 0 03/10/2022 Active multivitamin (THERAGRAN) tablet tablet Take 0.5 tablets by mouth daily 0 Active cholecalciferol, vitamin D3, 50 mcg (2,000 unit) capsule Take 1 capsule by mouth daily 0 Active CALCIUM ORAL Take 1,000 mg by mouth daily 0 Active metoprolol succinate XL (TOPROL-XL) 25 mg 24 hr tablet Take 1 tablet (25 mg total) by mouth daily 0 Active rosuvastatin (CRESTOR) 10 mg tablet 0 09/24/2022 Active ezetimibe (ZETIA) 10 mg tablet 0 09/10/2022 Active predniSONE (DELTASONE) 1 mg tablet 2 tablets (2 mg total) daily 0 11/10/2022 Active prasugreL (EFFIENT) tablet Take 1 tablet (10 mg total) by mouth daily 90 tablet 3 12/02/2022 12/02/2023 Active rivaroxaban (XARELTO) 20 mg tablet Take 1 tablet (20 mg total) by mouth daily 90 tablet 3 12/02/2022 12/02/2023 Active rivaroxaban (XARELTO) 20 mg tablet Take 1 tablet (20 mg total) by mouth daily 0 12/02/2022 Discontinued( R eorder) prasugreL (EFFIENT) tablet Take 1 tablet (10 mg total) by mouth daily 0 12/02/2022 Discontinued( R eorder) ezetimibe-rosuva statin 10-10 mg tablet Take 1 tablet by mouth daily 0 12/02/2022 Discontinued( N o Longer Needed, Treatment Complete) potassium chloride (KLOR-CON) 10 mEq CR tablet Take 1 tablet (10 mEq total) by mouth daily 30 tablet 11 09/01/2022 12/02/2022 Discontinued(N o Longer Needed, Treatment Complete) documented as of this encounter (statuses as of 05/06/2023) Active Problems Problem Noted Date Diagnosed Date Coronary artery disease invo lving [place] coronary artery of [place] heart without angina pectoris 09/01/2022 LBBB (left bundle branch block) 09/01/2022 Mixed hyperlipidemia 09/01/2022 Complete heart block 09/01/2022 Presence of permanent cardiac pacemaker 09/01/19 23 History of placement of stent in LAD coronary ar heather 09/01/2022 History of pulmonary embolism 09/01/2022 Chronic anemia 09/01/2022 Bilateral leg edema 09/01/2022 documented as of this encounter (statuses as of 05/06/2023) Immunizations Name Administration Dates Next Due FLU High Dose 65+ (Fluzone) 06/02/2021,1 ,06/27/2019,06/10,06/08/2017,06/16/2016,10/29/2009 Gamma Globulin 04/08/1994,11/27/1993 H1N1 All Forms 10/29/2009 IPV (IPOL) 11/04/1993 Influenza, Quadrivalent 05/14/2015,06/19,05/11/2013,05/16,05/21/2011,06/05/2010 Oifsqy-HYIJ-LiF-2 Trs-sucr Vaccine 01/07/2022 Glawbe-JSLA-PdA-2 Vaccine 04/01/2021,10/04/2020, 09/13/2020 Pneumococcal Conjugate PCV13 (Akvjulx77) 06/17/2015 Pneumococcal Polysaccharide PPV23 ([id number]) 07/03/2016 Recombinant Zoster (Shingrix) 07/09/2020, 019 Tdap (Boostrix,Adacel) 03/24/2012 Typhoid Live 10/30/2009,11/03/1993 documented as of this encounter Social History Tobacco Use Types Packs/Day Years Used Date Smoking Tobacco: Never Smokeless Tobacco: Never Tobacco Cessation:Counseling Given: Not Answered Sex and Gender Information Value Date Recorded Sex Assigned at Not on file Gender Identity Not on file Sexual Orientation Not on file Job Start Date Occupation Industry Not on file Not on file Not on file documented as of this encounter Last Filed Vital Signs Vital Sign Reading Time Taken Comments Blood Pressure 102/58 12/02/2022 10:31 AM PDT Pulse 60 12/02/2022 10:31 AM PDT Temperature - - Respiratory Rate - - Oxygen Saturation - - Inhaled Oxygen Concentration - - Weight 88.2 kg (194 lb 6.4 oz) 12/02/2022 10:31 AM PDT Height 177.8 cm (5' 10) 12/02/2022 10:31 AM PDT Body Mass Index 27.89 12/02/2022 10:31 AM PDT documented in this encounter Patient Instructions * Attachments The following attachments cannot be sent through Care Everywhere. * Coronary Artery Disease (Ibm Bpm Architect) (Pakistani) documented in this encounter Progress Notes * Beka Jay MD - 12/02/2022 10:30 AM PDT Subjective Patient ID: Curt De La Rosa is a 77 y.o. male that had concerns including Coronary Artery Disease, Hyperlipidemia, and Other (PPM, CHB). HPI: This 77 years old pleasant male: Problem lists: #Non-ST NM, s/p LAD and diagonal stent at [facility]. August 15, 2022: Mid long up to 95% LAD, 30% distal, occluded mid diagonal, 70% proximal diagonaldisease, OM1 80% LEISA-3 flow, ramus 30 to 50% proximal, normal RCA. S/p 3 x 48 mm Synergy HENRY mid LAD, 2.5 x 20 mm Synergy HENRY first diagonal. Patient developed acute stent thrombosis and underwent repeat left heart catheterization which showed patent mid LAD stent however thrombotic diagonal stent with 100% occlusion, s/p 2.5 x 20 mm Synergy HENRY. #Complete heart block s/p Medtronic, MRI compatible dual-chamber permanent pacemaker insertion at [facility] in October 2021 #Underlying chronic left bundle branch block #History of Pulmonary embolism in 2012 after left ankle fracture surgery which was provoked. Secondepisode which was unprovoked in 2014 and since then on anticoagulation with Xarelto. #Myasthenia gravis (On azathioprine and prednisone chronically),It was diagnosed about 12 years ago. peripheral neuropathy #Orthostatic hypotension #Mixed hyperlipidemia #Mycobacterium chelonae skin infection. On Biaxin and linezolid since May 2022 #Anemia #GERD LHC: August 15, 2022: Mid long up to 95% LAD, 30% distal, occluded mid diagonal, 70% proximal diagonaldisease, OM1 80% LEISA-3 flow, ramus 30 to 50% proximal, normal RCA. S/p 3 x 48 mm Synergy HENRY mid LAD, 2.5 x 20 mm Synergy HENRY first diagonal. Patient developed acute stent thrombosis and underwent repeat left heart catheterization which showed patent mid LAD stent however thrombotic diagonal stent with 100% occlusion, s/p 2.5 x 20 mm Synergy HENRY. ECHO: August 17, 2022: LVEF 58% with apical akinesis. Pulmonary artery systolic pressure about 42 mmHg. No apical thrombus. Bilateral lower extremity venous Doppler: September 01, 2022:Negative for deep venous thrombosis. LABS: November 19, 2022: Total cholesterol 132, HDL 63, LDL 52, triglyceride 86 August 21, 2022: Hemoglobin 7.6, MCV 108, platelets 328, low RBC and WBC 4.4. Poikilocytosis and anisocytosis present. Sodium 134, potassium 4.0, BUN 16, creatinine 0.96. June 30, 2022: Hemoglobin 12.9, platelets 187, MCV 100, sodium 136, potassium 3.8, BUN 14.9, creatinine 0.80, normal AST, ALT EKG: December 02, 2022: AV sequential paced rhythm September 01, 2022: AV sequential paced rhythm. QRS duration 148 ms. DEVICE: November 05, 2022: Device Type: Pacemaker Device Icer Machine: [employer] Model: 2272 Assurity MRI(TM) Implant Date: 11/10/21 Reason For Evaluation: routine Diagnostic Data Battery status: Middle of Service with estimated remaining battery life of 8 y. 10 m. Battery Voltage: 3.01 V Atrial paced: 27.0% ??Right Ventricular paced: 82.0% ??Left Ventricular paced: ?? Mode switch: 1% Mode: DDD ?? Lower Rate Limit: 60 bpm With this background history today came for follow-up. Since he saw me last time overall he is doing okay. He has lost more than 10 pounds. No extremity swelling is better. No more groin problem. He is tolerating prasugrel and Xarelto without any major bleed. He gets skin bruises easily. Has not started cardiac rehab yet. Patient denies any chest pain or worsening shortness of breath or PND or ort hopnea or palpitation or dizziness or syncope or claudication pain or strokelike symptoms or bleeding. Past Medical History: Diagnosis Date ??? Coronary artery disease ??? Hyperlipidemia ??? Pulmonary embolism (CMS-HCC) ??? Sleep apnea Past Surgical History: Procedure Laterality Date ??? CARDIAC CATHETERIZATION ??? CORONARY STENT PLACEMENT History reviewed. No pertinent family history. Social History Socioeconomic History ??? Marital status: Tobacco Use ??? Smoking status: Never ??? Smokeless tobacco: Never No Known Allergies Current Medication List Sig azaTHIOprine (IMURAN) 50 mg tablet CALCIUM ORAL Take 1,000 mg by mouth daily cholecalciferol, vitamin D3, 50 mcg (2,000 unit) capsule Take 1 capsule by mouth daily ezetimibe (ZETIA) 10 mg tablet ketoconazole (NIZORAL) 2 % cream APPLY LIBERAL AMOUNT TO AFFECTED AREA(S) TWO TIMES DAILY FOR 3 WEEKS metoprolol succinate XL (TOPROL-XL) 25 mg 24 hr tablet Take 1 tablet (25 mg total) by mouth daily multivitamin (THERAGRAN) tablet tablet Take 0.5 tablets by mouth daily predniSONE (DELTASONE) 1 mg tablet 2 tablets (2 mg total) daily predniSONE (DELTASONE) 10 mg tablet rosuvastatin (CRESTOR) 10 mg tablet testosterone cypionate (DEPO-TESTOTERONE) 200 mg/mL injection INJECT 300MG (1.5ML) INTO THE MUSCLE EVERY 4 WEEKS prasugreL (EFFIENT) tablet (Discontinued) Take 1 tablet (10 mg total) by mouth daily rivaroxaban (XARELTO) 20 mg tablet (Discontinued) Take 1 tablet (20 mg total) by mouth daily prasugreL (EFFIENT) tablet Take 1 tablet (10 mg total) by mouth daily rivaroxaban (XARELTO) 20 mg tablet Take 1 tablet (20 mg total) by mouth daily ezetimibe-rosuvastatin 10-10 mg tablet (Discontinued) Take 1 tablet by mouth daily potassium chloride (KLOR-CON) 10 mEq CR tablet (Discontinued) Take 1 tablet (10 mEq total) by mouthdaily Review of Systems Constitutional: Negative for fatigue, fever and unexpected weight change. Eyes: Negative for visual disturbance. Respiratory: Negative for shortness of breath. Cardiovascular: Negative for chest pain, palpitations and leg swelling. Gastrointestinal: Negative for blood in stool. Endocrine: Negative for polydipsia. Genitourinary: Negative for hematuria. Musculoskeletal: Negative for myalgias. Skin: Negative for rash. Neurological: Negative for dizziness, syncope, weakness and light-headedness. Hematological: Bruises/bleeds easily. Psychiatric/Behavioral: The patient is not nervous/anxious. Objective BP 102/58 (BP Location: Left arm, Patient Position: Sitting) Pulse 60 Ht 1.778 m Wt 88.2 kg BMI 27.89 kg/m?? Physical Exam: General Appearance: Appears anemic, not in distress HENT: No obvious jaundice, no xanthelasma Neck: No obvious JVD Respiratory: clear to auscultation and percussion, no rales or wheeze Cardiovascular: Regular rhythm, S1-S2 normal, no S3 no S4, no significant murmur Pulses: No carotid bruit, no obvious abdominal bruit, no evidence of critical limb ischemia Abdomen: Nontender, no hepatosplenomegaly, no obvious pulsatile mass Extremities: Bilateral stockings Neuro: Alert oriented to time place and person, no obvious motor or sensory deficit. Psych: Appropriate affect, normal mentation and memory Skin: No gangrene or ulcer Assessment/Plan Diagnoses and all orders for this visit: Coronary artery disease involving [place] coronary artery of [place] heart without angina pectoris - ECG 12 lead - CBC w/ diff Lab Collect; Future LBBB (left bundle branch block) - ECG 12 lead - CBC w/ diff Lab Collect; Future Complete heart block (CMS-HCC) Presence of permanent cardiac pacemaker History of placement of stent in LAD coronary artery - XTRNL Referral to Cardiac Rehabilitation Mixed hyperlipidemia - Comprehensive Metabolic Panel (CMP) Expires 12 Months; Future - CBC w/ diff Lab Collect; Future Other orders - prasugreL (EFFIENT) tablet; Take 1 tablet (10 mg total) by mouth daily - rivaroxaban (XARELTO) 20 mg tablet; Take 1 tablet (20 mg total) by mouth daily Assessment/Plan Comments: Patient denies any cardiovascular symptoms. He claims that overall his hemoglobin is getting better. No major bleeding issues. Tolerating both Xarelto 20 mg daily and prasugrel 10 mg daily.Considering his complex coronary artery disease history with a stent thrombosis, will continue prasugrel 10 mgand Xarelto 20 mg for whole 1 year as per GDMT unless there is a major bleed. Overall LV function is preserved. Reviewed his pacemaker interrogation data from November 05, 2022 from [facility]. Normal functioning pacemaker. Lower extremity venous Doppler did not reveal any DVT. He has lost more than 10 pounds. Clinically appears compensated. Recent LDL cholesterol 52 and HDL 63. No flareup of myasthenia gravis. Tolerating combination of Zetia and rosuvastatin. We will refer him back to cardiacrehab. As per his wishes we will schedule him to [facility] pacemaker clinic. I will repeat CBC and CMP. Otherwise follow-up in 6 months. Preventive measures discussed. In the interim, if patient develops worsening of cardiovascular symptoms, advised to call us. Multiple complex cardiovascular issues, extensive data review and decision making. This note was generated utilizing voice recognition software. While attempts have been made to correct mistakes, common errors may occur, including substitution of words that sound phonetically similar to the intended word as well as random substitution errors. Please take this into consideration and use clinical context when necessary. Electronically signed by Beka Jay MD 12/02/2022 11:01 AM documented in this encounter Miscellaneous Notes * Addendum Note - Darcy Camara - 12/02/2022 10:30 AM PDTAddended by: DARCY CAMARA on: 12/02/2022 03:33 PM Modules accepted: Orders documented in this encounter Plan of Treatment Scheduled Referrals Name Type Priority Associated Diagnoses Order Schedule XTRNL Referral to Cardiac Rehabilitation Outpatient Referral Routine History of placement of stent in LAD coronary artery Ordered: 12/02/2022 documented as of this encounter Procedures Procedure Name Priority Date/Time Associated Diagnosis Comments ECG 12-LEAD Routine 12/02/2022 10:30 AM PDT Coronary artery disease involving [place] coronary artery of [place] heart without angina pectoris LBBB (left bundle branch block) documented in this encounter Results * ECG 12 lead (12/02/2022 10:30 AM PDT) HR 60 bpm [facility] IECG RR 1,[address] 188 ms [facility] IECG QRSD 142 ms [facility] IECG QT 464 ms [facility] IECG QTc 464 ms [facility] IECG QRS 75 deg [facility] IECG T 71 deg [facility] IECG Impression - ABNORMAL ECG - [facility] IECG Impression AV sequential paced rhythm [facility] IECG Impression When compared with ECG of 01-Sep-2022 12:59:26, [facility] IECG Impression nsg [facility] IECG 12/02/2022 10:3 0 AM PDT Beka Jay MD ECG ORDERABLES Performing Organization Address [facility] Co de Phone Number [facility] IEC * CBC w/ diff Lab Collect (12/02/2022) Blood Venous blood / Unknown Beka Jay MD LAB BLOOD ORDERABLES Performing Organization Address City/[facility]/ZIP Co de Phone Number EXTERNAL LAB AGENCY * Comprehensive Metabolic Panel (CMP) Expires 12 Months (12/02/2022) Blood Venous blood / Unknown Beka Jay MD LAB BLOOD ORDERABLES documented in this encounter Visit Diagnoses Diagnosis Coronary artery disease involving [place] coronary artery of [place] heart without angina pectoris- Primary LBBB (left bundle branch block) Other left bundle branch block Complete heart block (CMS-HCC) Atrioventricular block, complete Presence of permanent cardiac pacemaker History of placement of stent in LAD coronary artery Mixed hyperlipidemia documented in this encounter Care Teams Broommaking Supervisor Relationship Specialty Start Date End Date Eliu Zendejas [address] [address] PCP - General Internal Medicine 03/09/22 documented as of this encounter
== END 2023-06-23 10:30 ==
LOC: CAR 08:30
PROVIDERS: Family Provider Internal Medicine; PCP Internal Medicine; Referring Provider Internal Medicine Cardiovascular Disease; Visit Provider Internal Medicine Cardiovascular Disease
DX: Z95.5 Presence of coronary angioplasty implant and graft (principal)
CPT/HCPCS: 93798

== ENCOUNTER → 2023-06-25 11:28 | Outpatient (CLI) | payer OTHER, SELFPAY ==
[2023-06-28 13:03] LABS: Acetylcholine Receptor Bind AB 0.03 nmol/L (0.00-0.24)
[2023-06-29 12:05] LABS: Acetylcholine Rec Blocking AB 15 % (0-25)
[2023-06-29 14:32] LABS: Immunoglobulin A, Serum 148 mg/dL (61-437); Immunoglobulin G,Serum 754 mg/dL (603-1613); Immunoglobulin M, Serum 30 mg/dL (15-143)
[2023-06-29 14:36] LABS: Albumin 3.4 g/dL (2.9-4.4); Alpha-1-Globulin 0.3 g/dL (0.0-0.4); Alpha-2-Globulin 0.7 g/dL (0.4-1.0); Gamma Globulin 0.7 g/dL (0.4-1.8); Globulin Total 2.6 g/dL (2.2-3.9)
== END ==
PROVIDERS: Family Provider Internal Medicine; PCP Internal Medicine; Referring Provider Psychiatry & Neurology Neurology; Visit Provider Psychiatry & Neurology Neurology
DX: G70.00 Myasthenia gravis without (acute) exacerbation (principal); G62.9 Polyneuropathy, unspecified
CPT/HCPCS: 36415; 82784; 83519; 84155; 84165; 86334

== ENCOUNTER → 2023-10-13 07:49 | Outpatient (CLI) | payer OTHER, SELFPAY ==
[2023-10-13 09:05] LABS: Add Manual Diff / Slide Review NO; Basophils Absolute Auto 100 /uL (0-100); Basophils Percent Auto 0.9 % (0-2); Eosinophils Absolute Auto 100 /uL (0-450); Eosinophils Percent Auto 0.7 % (2-4); Hematocrit 48.7 % (41-53); Hemoglobin 16.5 g/dL (13.5-17.5); Lymphocytes Absolute Auto 1200 /uL (1100-4500); Lymphocytes Percent Auto 15.8 % (25-40); Mean Corpuscular HGB Conc 33.9 % (30-36); Mean Corpuscular Volume 103.3 fL (80-100); Monocytes Absolute Auto 800 /uL (0-900); Monocytes Percent Auto 10.9 % (3-14); Neutrophils Absolute Auto 5500 /uL (1500-7000); Neutrophils Percent Auto 71.7 % (50-75); Platelet Count 177 X10^3/uL (150-400); Red Blood Cell Count 4.72 X10^6/uL (4.5-5.9); Red Cell Distribution Width 16.6 % (11.6-14.8); White Blood Cell Count 7.7 X10^3/uL (4.5-11.0)
[2023-10-13 10:07] LABS: Alanine Aminotransferase 25 IU/L (<50); Albumin 3.6 g/dL (3.5-5.0); Albumin Globulin Ratio 1.4 (1.0-2.8); Alkaline Phosphatase 40 U/L (38-126); Aspartate Aminotransferase 33 IU/L (17-59); BUN Creatinine Ratio 14.4 (6-22); Bilirubin Total 1.2 mg/dL (0.2-1.3); Blood Urea Nitrogen 15 mg/dL (9-20); Calcium 9.5 mg/dL (8.4-10.2); Carbon Dioxide 29 mmol/L (22-32); Chloride 100 mmol/L (98-107); Cholesterol 147 mg/dL (140-199); Estimated Glomerular Filt Rate > 60 mL/min (>60); Globulin 2.6 g/dL (1.7-4.1); Glucose 66 mg/dL (80-110); HDL Cholesterol 63 mg/dL (40-60); HEMOLYSIS < 15 (0-50); LDL Cholesterol Calculated 62 mg/dL (<100); Potassium 4.2 mmol/L (3.4-5.1); Sodium 134 mmol/L (137-145); Total Protein 6.2 g/dL (6.3-8.2); Triglycerides 112 mg/dL (35-150)
[2023-10-18 09:43] LABS: Percent Free Testosterone 4.13 % (1.50-4.20); Testosterone Free 34.14 ng/dL (5.00-21.00); Testosterone Total 826.6 ng/dL (264.0-916.0)
== END ==
PROVIDERS: Family Provider Internal Medicine; PCP Internal Medicine; Referring Provider Internal Medicine Cardiovascular Disease; Visit Provider Internal Medicine Cardiovascular Disease
DX: I25.10 Atherosclerotic heart disease of native coronary artery without angina pectoris (principal); E78.2 Mixed hyperlipidemia; E29.1 Testicular hypofunction
CPT/HCPCS: 36415; 80053; 80061; 84402; 84403; 85025

== ENCOUNTER 2023-10-18 21:24 | Emergency (ER) | payer OTHER, SELFPAY ==
[2023-10-18 21:29] VITALS: BP 155/84; PULSE 60; RESP 18; TEMP 36.6; O2SAT 98; BMI 29.1
--- NOTE | 2023-10-18 21:44 | DI.US.S_ITS ---
PROCEDURE: US PERIPH VENOUS LOW EXTREM RT INDICATIONS: EDEMA; HX PE TECHNIQUE: Real-time imaging, as well as color and pulse Doppler interrogation, were performed of the lower extremity deep veins from the inguinal ligament to the popliteal fossa, with documentation of the visualized calf veins. COMPARISON: [facility], , US PERIPH VENOUS LOW EXTREM RT, 11/02/2018, 10:59. FINDINGS: The common femoral, femoral, popliteal, and the visualized calf veins are normally compressible, and free of intraluminal thrombus. Color and pulse Doppler demonstrate normal phasic intraluminal flow. There is normal augmentation response to distal compression maneuver. IMPRESSION: No evidence of DVT in visualized right lower extremity veins. Dictated by: Jovanny Marcos M.D. on 10/18/2023 at 22:26 Approved by: Jovanny Marcos M.D. on 10/18/2023 at 22:27
--- NOTE | 2023-10-19 02:17 | ED_ITS ---
HPI - Extremity Problem General Chief complaint: Extremity Problem,Nontraumatic Stated complaint: thinks blood clot in rt leg Time Seen by Provider: 10/19/23 02:17 Source: patient and family Mode of arrival: Ambulatory History of Present Illness HPI Narrative: 78-year-old gentleman with Prior DVT and PE continues on Xarelto, coronary artery disease with [place] and stents 1 year ago, myasthenia with chronic prednisone, hypertension, hyperlipidemia, pacemaker placement presents with acute right leg pain after relaxing in a recliner chair for number of hours watching TV. He comes in concerned that he may have developed another DVT. There was no fevers, cough, chills, dyspnea, palpitations, chest pain Related Data Home Medications Medication Instructions Recorded Confirmed vitamin D3 94.38 mcg (3,775 1 cap PO ##0 07/03/16 06/25/23 unit)-folic acid 1 mg capsule (Ciferex) CA PANTOTHENATE/FOLIC ACID/VIT 1 tab PO QDAY ##0 02/12/20 06/25/23 (MULTIVITAMIN) Calcium 1 tab PO DAILY 02/20/21 06/25/23 ciclopirox 8 % topical solution 1 applic topical BEDTIME 06/25/23 06/25/23 (Ciclodan) clobetasol 0.05 % topical cream 1 applic topical DAILY 06/25/23 06/25/23 Previous Rx's Medication Instructions Recorded rivaroxaban 20 mg tablet (Xarelto) 20 mg PO DAILY #90 tabs 03/20/22 Disabled Parking #1 ea 07/27/22 ezetimibe 10 mg tablet 10 mg PO DAILY #90 tabs 09/24/22 prednisone 10 mg tablet 10 mg PO DAILY #90 tabs 12/25/22 azathioprine 50 mg tablet (Imuran) 200 mg (4 x 50 mg) PO DAILY #372 01/21/23 tabs prednisone 1 mg tablet 2 mg (2 x 1 mg) PO DAILY #180 tabs 02/09/23 testosterone cypionate 200 mg/mL 200 mg IM Q4W #6 mL 06/25/23 intramuscular oil (Depo-Testosterone) metoprolol succinate 25 mg 25 mg PO DAILY Heart attack #90 08/17/23 tablet,extended release 24 hr tabs rosuvastatin 10 mg tablet 10 mg PO DAILY #90 tabs 09/06/23 prasugrel 10 mg tablet 10 mg PO DAILY Stent (anti platlet 09/20/23 agent) #90 tabs cephalexin 500 mg capsule 500 mg PO TID #21 caps 10/19/23 Allergies Allergy/AdvReac Type Severity Reaction Status Date / Time No Known Drug Allergies Allergy Verified 06/25/23 10:51 Review of Systems Review of Systems Narrative: Pertinent positive and negative findings as per HPI Patient History Medical History Coronary artery disease Mycobacterium chelonae infection of skin Heart block AV third degree Gilbert syndrome Orthostatic hypotension Measles Staph infection (2009) Vocal cord paralysis (2010) Vertigo (2011) Personal history of pulmonary embolism (~11/2017) Cataract (2012) Hearing loss (2011) GERD (gastroesophageal reflux disease) (~1979) DVT (deep venous thrombosis) (2012) Peripheral neuropathy (2011) Hypogonadism in male (07/12/17) Left bundle branch block (LBBB) (12/08/16) History of deep venous thrombosis (01/03/13) Myasthenia gravis Mixed hyperlipidemia Surgical History H/O heart artery stent (08/15/22) S/P cardiac pacemaker procedure (~10/2021) Anesthesia History of cataract removal with insertion of prosthetic lens (07/2013) History of thyroidectomy (05/2013) Family History Mother Age: 100 High cholesterol Father Pulmonary fibrosis Family/Other Adopted Family/Other Adopted Social History Smoking Status: Never smoker alcohol intake: current substance use type: does not use Smoking Status: Never smoker alcohol intake frequency: a few times a week Alcohol type: beer, wine and hard liquor Substance Use Type: does not use Exam Initial Vital Signs Initial Vital Signs: Vital Signs Temperature 97.8 F 10/18/23 21:29 Pulse Rate 60 10/18/23 21:29 Respiratory Rate 18 10/18/23 21:29 Blood Pressure 155/84 H 10/18/23 21:29 Pulse Oximetry 98 10/18/23 21:29 Oxygen Delivery Method Room Air 10/18/23 21:29 General: Alert appropriate in no acute distress Respiratory: Able to speak in full sentences, no obvious respiratory distress Abdomen: Nontender, no inguinal adenopathy Lower extremities: Right leg is more swollen than the left throughout the thigh. He has some chronic venous stasis changes and eczema in the distal portion of the right leg with increasing erythema that is extending up toward the knee and in the medial/posterior portion of the thigh where he is complaining of his pain. 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, coronary artery disease with [place] and stents 1 year ago, myasthenia with chronic prednisone, hypertension, hyperlipidemia, pacemaker placement Data collected from: patient Medical records reviewed: Updated medication list and problem list from [facility] primary care follow up provided by the patient and reviewed Differential considered: DVT, cellulitis, inguinal mass, fracture Exam documented above, pertinent findings include: Patient is otherwise at his baseline exam is benign with the exception of a right leg that is edematous with erythema extending up the medial posterior aspect of his thigh correlating with his area of tenderness. There is no inguinal adenopathy. No lower extremity ulcer Imaging studies independently reviewed: Ultrasound of the lower extremity shows no DVT Discussion: Patient comes in with concern for DVT developing after he was sitting watching a movie this evening. On exam he actually is developing a right lower extremity cellulitis likely related to the chronic venous stasis changes and mild eczema of the right lower extremity. There was no evidence of abscess, inguinal adenopathy, sepsis or other systemic symptoms at this time. He is reassured regarding the absence of DVT and will recommend Keflex for 7 days. Discussed the anticipated course of resolution of his right lower extremity cellulitis, reasons to return to the emergency department, discussed symptoms of sepsis and indicated that any of these would require additional emergency department evaluation. He is given his 1st dose of Keflex in the ER, questions are answered and he is safe for discharge Discharge Plan Departure Patient Disposition: Home Clinical Impression: Cellulitis of leg, right Instructions: DI for Cellulitis -- Adult Activity Restrictions/Additional Instructions: Thank you for coming in today You do not have a blood clot in your leg. However, I believe the pain, swelling and warmth are secondary to cellulitis. On clinical exam, there is no evidence of abscess, sepsis or reason for additional imaging studies, lab testing or hospitalization this evening. You do need to be on 7 days of antibiotics. I have given you the 1st dose of Keflex this evening and a prescription to greens picker and begin later today. You can use Tylenol for the pain. Should you develop fevers, chills, worsening symptoms or new findings please do return to the emergency department. Prescriptions: New cephalexin 500 mg capsule 500 mg PO TID Qty: 21 0RF No Action Ciferex 3,775 UNITS/1 MG capsule 1 cap PO Qty: 0 CA PANTOTHENATE/FOLIC ACID/VIT (MULTIVITAMIN) 1 tab PO QDAY Qty: 0 Rx Instructions: 1/2 dose a few times a week Xarelto 20 mg tablet 20 mg PO DAILY Qty: 90 4RF azathioprine [Imuran] 50 mg tablet 200 mg PO DAILY Qty: 372 3RF prednisone 1 mg tablet 2 mg PO DAILY Qty: 180 3RF Rx Instructions: take with 10mg tabs as directed metoprolol succinate 25 mg tablet extended release 24 hr 25 mg PO DAILY Qty: 90 3RF rosuvastatin 10 mg tablet 10 mg PO DAILY Qty: 90 3RF prasugrel 10 mg tablet 10 mg PO DAILY Qty: 90 3RF (DME) Disabled Parking See Rx Instructions .ROUTE .MEDSUPPLY Qty: 1 0RF Rx Instructions: Patient qualifies for disabled parking as per the attached form. ezetimibe 10 mg tablet 10 mg PO DAILY Qty: 90 3RF prednisone 10 mg tablet 10 mg PO DAILY Qty: 90 3RF Calcium 1,000 mg 1 tab PO DAILY clobetasol 0.05 % cream 1 applic topical DAILY ciclopirox [Ciclodan] 8 % solution 1 applic topical BEDTIME testosterone cypionate [Depo-Testosterone] 200 mg/mL oil 200 mg IM Q4W Qty: 6 2RF Rx Instructions: discard remaining drug in single use vials Referrals: Eliu Zendejas MD [Primary Care Provider] - Stand Alone Forms: Patient Portal/API
[2023-10-19] MEDS: cephALEXin 250 MG CAPSULE 500 MG PO (02:34)
[2023-10-19 02:43] VITALS: BP 149/98; PULSE 60; RESP 17; TEMP 36.2; O2SAT 97
== END 2023-10-19 02:45 | disposition home or self-care (01) ==
PROVIDERS: Emergency Provider Emergency Medicine; Family Provider Internal Medicine; PCP Internal Medicine
DX: L03.115 Cellulitis of right lower limb (principal); I25.2 Old myocardial infarction; Z79.01 Long term (current) use of anticoagulants
CPT/HCPCS: 93971; 99283

== ENCOUNTER → 2024-03-23 12:15 | Outpatient (CLI) | payer OTHER, SELFPAY ==
--- NOTE | 2024-03-23 12:16 | DI.RAD.S_ITS ---
PROCEDURE: XR DEXA AXIAL SKELETON INDICATIONS: MYASTHENIA GRAVIS,MANAGER ED CORTICOSTEROID USE COMPARISON: None. FINDINGS: Lumbar Spine: Bone mineral density is 1.133 g/cm2, T score 0.8. Left Hip: Bone mineral density is 0.911 g/cm2, T score -0.3. Left Femoral Neck: Bone mineral density is 0.628 g/cm2, T score -2.0. Right Hip: Bone mineral density is 0.891 g/cm2, T score -0.4 Right Femoral Neck: Bone mineral density 0.708 g/cm2, T score -1.3. Left Forearm: Bone mineral density is 0.683 g/cm2, T score 1.9. Fracture Risk Calculation (when applicable): 10-year fracture risk of a major osteoporotic fracture 14% and of a hip fracture 5.8%. (T score greater or equal to -1.0 to: NORMAL) (T score from -1.1 to -2.4: OSTEOPENIA) (T score less than or equal to -2.5: OSTEOPOROSIS) IMPRESSION: Osteopenia Follow-up guidelines as follows: Osteoporosis: Consider a repeat DEXA and Vertebral Fracture Assessment (VFA) exam in 2 years or sooner if medically necessary, to reassess this patient's status. Osteopenia: Consider a repeat DEXA in 2-3 years to reassess this patient's status, or if there is a new clinical indication. Normal: Consider a repeat DEXA in 5 years or sooner, or if there is a new clinical indication. All treatment decisions require clinical judgment and consideration of individual patient factors, including patient preferences, comorbidities, previous drug use, risk factors not captured in the FRAX model (e.g., frailty, falls, vitamin D deficiency, increased bone turnover, interval significant decline in bone density ) and possible under- or over-estimation of fracture risk by FRAX. In addition, the NOF Guide recommends that FDA-approved medical therapies be considered in postmenopausal women and men age >= 50 years with a: * Hip or vertebral (clinical or morphometric) fracture * T-score of <=-2.5 at the spine or hip * Ten-year fracture probability by FRAX of >= 3% for hip fracture or >=20% for major osteoporotic fracture. People with diagnosed cases of osteoporosis or at high risk for fracture should have regular bone mineral density tests. For patients eligible for Medicare, routine testing is allowed once every 2 years. The testing frequency can be increased to one year for patients who have rapidly progressing disease, those who are receiving or discontinuing medical therapy to restore bone mass, or have additional risk factors. Dictated by: Eliud Lancaster M.D. on 03/24/2024 at 9:46 Approved by: Eliud Lancaster M.D. on 03/24/2024 at 9:52
== END ==
PROVIDERS: Family Provider Internal Medicine; PCP Internal Medicine; Referring Provider Psychiatry & Neurology Neurology; Visit Provider Psychiatry & Neurology Neurology
DX: G70.00 Myasthenia gravis without (acute) exacerbation (principal); M85.89 Other specified disorders of bone density and structure, multiple sites; Z79.52 Long term (current) use of systemic steroids
CPT/HCPCS: 77080; 77081

== ENCOUNTER 2024-05-05 09:56 | Emergency (ER) | payer OTHER, SELFPAY ==
[2024-05-05 10:00] VITALS: BP 142/85; PULSE 70; RESP 16; TEMP 36.5; O2SAT 99; BMI 28.4
--- NOTE | 2024-05-05 10:32 | ED.BACK ---
HPI - Back Pain/Injury General Chief Complaint: Back Pain/Injury Stated Complaint: Severe Back pain Time Seen by Provider: 05/05/24 10:09 Source: patient Mode of arrival: Ambulatory Limitations: no limitations History of Present Illness HPI Narrative: Patient is a 78-year-old male who is here for evaluation of lower back discomfort. Symptoms been present for the past week and half. He stated that he thinks they initially started after he bent over and twisted to pick something up but it was not in immediate pain after that event he was later on in the day that he has had discomfort. Some pain in his right leg. No problems with bowel or bladder. No fevers. No prior back surgery. Is on 10 mg of prednisone on a daily basis secondary to myasthenia gravis. He has been on this dose for the past 3 months. Has been trying muscle relaxers and hydrocodone at home with minimal improvement of symptoms. Related Data Home Medications Medication Instructions Recorded Confirmed vitamin D3 94.38 mcg (3,775 1 cap PO ##0 07/03/16 05/01/24 unit)-folic acid 1 mg capsule (Ciferex) ciclopirox 8 % topical solution 1 applic topical BEDTIME 06/25/23 05/01/24 (Ciclodan) aspirin 81 mg tablet,delayed 81 mg PO DAILY 11/22/23 05/01/24 release (Adult Low Dose Aspirin) calcium citrate 1,000 mg tablet 1,000 mg PO DAILY 05/01/24 05/01/24 multivitamin 1 tab PO DAILY 05/01/24 05/01/24 Previous Rx's Medication Instructions Recorded rivaroxaban 20 mg tablet (Xarelto) 20 mg PO DAILY #90 tabs 03/20/22 Disabled Parking #1 ea 07/27/22 prednisone 10 mg tablet 10 mg PO DAILY #90 tabs 12/25/22 metoprolol succinate 25 mg 25 mg PO DAILY Heart attack #90 08/17/23 tablet,extended release 24 hr tabs rosuvastatin 10 mg tablet 10 mg PO DAILY #90 tabs 09/06/23 ezetimibe 10 mg tablet 10 mg PO DAILY #90 tabs 11/10/23 econazole 1 % topical cream 1 applic topical BID #30 grams 11/22/23 testosterone cypionate 200 mg/mL 200 mg IM Q4W #6 mL 05/28/24 intramuscular oil (Depo-Testosterone) azathioprine 50 mg tablet (Imuran) 200 mg (4 x 50 mg) PO DAILY #372 01/17/24 tabs methocarbamol 500 mg tablet 500 mg PO TID PRN spasms #30 tabs 05/01/24 cyclobenzaprine 10 mg tablet 10 mg PO TID PRN muscle spasm #30 05/05/24 tabs hydrocodone 5 mg-acetaminophen 325 1 tab PO Q4-6H PRN pain #10 tabs 05/05/24 mg tablet Allergies Allergy/AdvReac Type Severity Reaction Status Date / Time No Known Drug Allergies Allergy Verified 05/05/24 10:04 Review of Systems Review of Systems Narrative: See HPI Patient History Medical History Coronary artery disease Mycobacterium chelonae infection of skin Heart block AV third degree Gilbert syndrome Orthostatic hypotension Measles Staph infection (2009) Vocal cord paralysis (2010) Vertigo (2011) Personal history of pulmonary embolism (~11/2017) Cataract (2012) Hearing loss (2011) GERD (gastroesophageal reflux disease) (~1979) DVT (deep venous thrombosis) (2012) Peripheral neuropathy (2011) Hypogonadism in male (07/12/17) Left bundle branch block (LBBB) (12/08/16) History of deep venous thrombosis (01/03/13) Myasthenia gravis Mixed hyperlipidemia Surgical History H/O heart artery stent (08/15/22) S/P cardiac pacemaker procedure (~10/2021) Anesthesia History of cataract removal with insertion of prosthetic lens (07/2013) History of thyroidectomy (05/2013) Family History Mother Age: 101 High cholesterol Father Pulmonary fibrosis Family/Other Adopted Family/Other Adopted Social History Smoking Status: Never smoker alcohol intake: current substance use type: does not use Smoking Status: Never smoker alcohol intake frequency: a few times a week Alcohol type: beer, wine and hard liquor Substance Use Type: does not use Exam Initial Vital Signs Initial Vital Signs: Vital Signs Temperature 97.7 F 05/05/24 10:00 Pulse Rate 70 05/05/24 10:00 Respiratory Rate 16 05/05/24 10:00 Blood Pressure 142/85 H 05/05/24 10:00 Pulse Oximetry 99 05/05/24 10:00 Oxygen Delivery Method Room Air 05/05/24 10:00 Const General: cooperative, comfortable and No ill appearing [facility] Head: normal to inspection and normocephalic GI Inspection: normal to inspection Back/Spine/Pelvis Thoracic/Lumbar Spine: No paraspinal tenderness, No thoracic spinal tenderness and No lumbar spinal tenderness Neuro General: patient alert, patient awake and moves all extremities Extrem General: normal to inspection Course Orders Ordered: ED Orders 05/05/24 10:32 XR lumbar spine 2-3V Stat Discontinued Medications Hydromorphone HCl (Hydromorphone 1 Mg Inj) 1 mg IM NOW ONE Stop: 05/05/24 10:35 Last Admin: 05/05/24 10:42 Dose: 1 mg Documented By: CUBA Vital Signs Vital signs: Vital Signs - 8 hr 05/05/24 10:00 05/05/24 11:02 Temperature 97.7 F Pulse Rate 70 87 Respiratory Rate 16 16 Blood Pressure 142/85 H 142/82 H Pulse Oximetry 99 98 Oxygen Delivery Method Room Air Room Air MDM - Back Pain/Injury Imaging Data lumbar spine X-ray: Radiologist's Impression: PROCEDURE: XR LUMBAR SPINE 3V INDICATIONS: LBP after twisting injury TECHNIQUE: 3 views of the lumbar spine were acquired. COMPARISON: None. FINDINGS / IMPRESSION: Moderate degenerative changes L5-S1 with disc space narrowing, osteophytes and facet osseous hypertrophic changes. Mild degenerative changes at L3-4 L4-5 No radiographic evidence of fracture, or significant subluxation. Mild degenerative changes of the sacroiliac joints and hips partially imaged. If symptoms persist or worsen, or there is high clinical suspicion of acute abnormality, MR could be performed MDM Narrative Medical decision making narrative: Patient has no red flag symptoms concerning for fracture, hematoma, abscess or cauda equina. I do suspect that this is muscular. He was on prednisone for his myasthenia gravis. Will have him increase his prednisone from 10 mg a day to 20 mg a day and then have him decrease it back down to 10 mg. Will try muscle relaxers. Pain medication for comfort as well. He was on anticoagulation so he can not take nonsteroidal anti-inflammatories. Will have him contact his primary doctor for follow-up. He was given return precautions. He expressed understanding and agreement with the plan. Discharge Plan Departure Patient Disposition: Home Clinical Impression: Acute low back pain Instructions: DI for Low Back Pain Activity Restrictions/Additional Instructions: You can consider increasing your prednisone for the next 5-7 days to 20 mg a day and then decreasing it back to your baseline 10 mg. Use the medication that you are prescribed today as directed. Contact your primary doctor for follow-up. Return to the emergency department for new symptoms. Prescriptions: New hydrocodone-acetaminophen 5-325 mg tablet 1 tab PO Q4-6H PRN (Reason: pain) Qty: 10 0RF cyclobenzaprine 10 mg tablet 10 mg PO TID PRN (Reason: muscle spasm) Qty: 30 0RF No Action Ciferex 3,775 UNITS/1 MG capsule 1 cap PO Qty: 0 Xarelto 20 mg tablet 20 mg PO DAILY Qty: 90 4RF metoprolol succinate 25 mg tablet extended release 24 hr 25 mg PO DAILY Qty: 90 3RF Hold Instructions: fatigue rosuvastatin 10 mg tablet 10 mg PO DAILY Qty: 90 3RF ezetimibe 10 mg tablet 10 mg PO DAILY Qty: 90 3RF testosterone cypionate [Depo-Testosterone] 200 mg/mL oil 200 mg IM Q4W Qty: 6 2RF Rx Instructions: discard remaining drug in single use vials azathioprine [Imuran] 50 mg tablet 200 mg PO DAILY Qty: 372 3RF methocarbamol 500 mg tablet 500 mg PO TID PRN (Reason: spasms) Qty: 30 1RF Rx Instructions: Take 1-2 tablets three times a day as needed. (DME) Disabled Parking See Rx Instructions .ROUTE .MEDSUPPLY Qty: 1 0RF Rx Instructions: Patient qualifies for disabled parking as per the attached form. prednisone 10 mg tablet 10 mg PO DAILY Qty: 90 3RF multivitamin Tablet 1 tab PO DAILY calcium citrate 1,000 mg tablet 1,000 mg PO DAILY ciclopirox [Ciclodan] 8 % solution 1 applic topical BEDTIME aspirin [Adult Low Dose Aspirin] 81 mg tablet,delayed release (DR/EC) 81 mg PO DAILY econazole 1 % cream 1 applic topical BID Qty: 30 1RF Referrals: Eliu Zendejas MD [Primary Care Provider] - Stand Alone Forms: Patient Portal/API
[2024-05-05] MEDS: HYDROMORPHONE 1 MG INJ IM (10:42)
[2024-05-05 11:02] VITALS: BP 142/82; PULSE 87; RESP 16; O2SAT 98
[2024-05-05 12:10] VITALS: BP 128/79; PULSE 86; RESP 16; O2SAT 97
== END 2024-05-05 12:27 | disposition home or self-care (01) ==
PROVIDERS: Emergency Provider Emergency Medicine; Family Provider Internal Medicine; PCP Internal Medicine
DX: M54.50 Low back pain, unspecified (principal); X50.1XXA Overexertion from prolonged static or awkward postures, initial encounter
CPT/HCPCS: 72100; 96372; 99283; J1170

== ENCOUNTER → 2024-06-02 08:09 | Outpatient (CLI) | payer OTHER, SELFPAY ==
[2024-06-02 09:37] LABS: Add Manual Diff / Slide Review NO; Basophils Absolute Auto 0 /uL (0-100); Basophils Percent Auto 0.5 % (0-2); Eosinophils Absolute Auto 100 /uL (0-450); Eosinophils Percent Auto 1.1 % (2-4); Hematocrit 45.3 % (41-53); Hemoglobin 15.3 g/dL (13.5-17.5); Lymphocytes Absolute Auto 1100 /uL (1100-4500); Mean Corpuscular HGB Conc 33.8 % (30-36); Mean Corpuscular Volume 100.5 fL (80-100); Monocytes Absolute Auto 600 /uL (0-900); Monocytes Percent Auto 10.2 % (3-14); Neutrophils Absolute Auto 4300 /uL (1500-7000); Neutrophils Percent Auto 70.2 % (50-75); Platelet Count 167 X10^3/uL (150-400); Red Blood Cell Count 4.51 X10^6/uL (4.5-5.9); Red Cell Distribution Width 16.7 % (11.6-14.8); White Blood Cell Count 6.1 X10^3/uL (4.5-11.0)
[2024-06-02 09:53] LABS: Hemoglobin A1C% w Est Avg Glu 6.4 % (4.0-6.0)
[2024-06-02 10:31] LABS: Alanine Aminotransferase 20 IU/L (<50); Albumin 3.7 g/dL (3.5-5.0); Albumin Globulin Ratio 1.5 (1.0-2.8); Alkaline Phosphatase 52 U/L (38-126); Aspartate Aminotransferase 28 IU/L (17-59); Bilirubin Total 0.9 mg/dL (0.2-1.3); Blood Urea Nitrogen 15 mg/dL (9-20); Calcium 9.5 mg/dL (8.4-10.2); Carbon Dioxide 30 mmol/L (22-32); Chloride 100 mmol/L (98-107); Cholesterol 148 mg/dL (140-199); Estimated Glomerular Filt Rate > 60 mL/min (>60); Globulin 2.4 g/dL (1.7-4.1); Glucose 74 mg/dL (80-110); HDL Cholesterol 66 mg/dL (40-60); HEMOLYSIS < 15 (0-50); LDL Cholesterol Calculated 59 mg/dL (<100); Potassium 4.2 mmol/L (3.4-5.1); Sodium 135 mmol/L (137-145); Total Protein 6.1 g/dL (6.3-8.2); Triglycerides 117 mg/dL (35-150)
[2024-06-02 10:42] LABS: Vitamin D 25 Hydroxy (D3) 54.3 ng/mL (30.0-100.0)
[2024-06-02 11:00] LABS: TSH w/ Reflex to FT4 3.35 uIU/mL (0.47-4.68)
== END ==
LOC: LAB 08:10
PROVIDERS: Family Provider Internal Medicine; PCP Internal Medicine; Referring Provider Psychiatry & Neurology Neurology; Visit Provider Internal Medicine
DX: G70.00 Myasthenia gravis without (acute) exacerbation (principal); I25.10 Atherosclerotic heart disease of native coronary artery without angina pectoris; D53.9 Nutritional anemia, unspecified; Z79.52 Long term (current) use of systemic steroids; G62.9 Polyneuropathy, unspecified; E78.2 Mixed hyperlipidemia
CPT/HCPCS: 80053; 80061; 82306; 83036; 84443; 85025

== ENCOUNTER → 2024-06-26 12:14 | Outpatient (CLI) | payer OTHER, SELFPAY | PROVIDERS: Family Provider Internal Medicine; PCP Internal Medicine; Referring Provider Internal Medicine Cardiovascular Disease; Visit Provider Internal Medicine Cardiovascular Disease | DX: I49.3 Ventricular premature depolarization (principal); I48.0 Paroxysmal atrial fibrillation | CPT/HCPCS: 36415; 83735 ==

== ENCOUNTER → 2024-07-17 09:38 | Outpatient (CLI) | payer OTHER, SELFPAY ==
--- NOTE | 2024-07-17 18:36 | DI.NM.S_ITS ---
DATE OF SERVICE: 07/17/2024 NUCLEAR CARDIOLOGY MYOCARDIAL PERFUSION STUDY PROCEDURE: Pharmacologic vasodilator stress and rest myocardial perfusion imaging with gating to assess ejection fraction and regional wall motion. ORDERING PROVIDER: Beka Jay MD INDICATIONS: The patient is a 79-year-old male with history of previous infarction with stents to the LAD and diagonal, complicated by stent thrombosis requiring re-stenting. He also has a pacemaker that has detected paroxysmal atrial fibrillation. CARDIAC STRESS: Per protocol, 0.4 mg of regadenoson was infused with a normal hemodynamic response. His resting ECG showed sinus rhythm with a LBBB versus a ventricularly paced rhythm. ST segments are normal. With stress, there are no significant ST-segment shifts or arrhythmias. He had no chest discomfort or other anginal symptoms but had mild flushing and lightheadedness. Per protocol, 26.3 millicuries of technetium-99m Myoview was injected. He was imaged 15 minutes later using a gated SPECT acquisition protocol. Earlier in the day while at rest, he had been injected with 11.4 millicuries of technetium-99m Myoview and imaged 15 minutes later, again using a gated SPECT acquisition protocol. FINDINGS: 1. Raw data: There is fair myocardial tracer uptake. The lung/heart ratio is normal at 0.37. The TID ratio is normal at 0.92. 2. Quantitated gated SPECT: Post-stress ejection fraction is estimated at 64%, although visually appears closer to 50% to 55% with a mild dyssynchronous contraction pattern and hypokinesis in the distal anterior apex extending into the inferior apex, possibly due to a conduction abnormality. The resting ejection fraction is 56% and visually appears similar to that of the post-stress ejection fraction with an identical contraction pattern. The resting end-diastolic volume is mildly increased at 130 mL. 3. Myocardial perfusion imaging: Post-stress supine images show a severe perfusion defect in the distal third of the inferolateral wall, extending to and including the apex. In addition, there is a mild perfusion defect in the distal anterior wall extending to the apex and periapical segments. The prone images show a similar perfusion pattern although with some improvement in the anterior defect. The resting images show a near identical perfusion pattern to that of the post-stress supine images without any obvious improvement in the inferior or anteroapical defect. IMPRESSION: 1. Abnormal myocardial perfusion study. 2. Fixed perfusion defect involving the distal 1/3rd of the inferolateral wall, extending to the apex with a moderate fixed perfusion defect in the distal anterior wall extending to the anterior apex and periapical segments. Both are consistent with a previous near transmural infarction. There is no significant reversibility to suggest significant ischemia. 3. Mildly reduced left ventricular systolic function with mildly increased left ventricular volumes. There is a dyssynchronous contraction pattern with hypokinesis in the distal inferior and anterior bertrand, apex, and periapical segments consistent with previous infarction. 4. No angina or ECG evidence of ischemia although LBBB or a paced rhythm preclude ST-segment analysis. There were no arrhythmias. 5. Compared to the previous myocardial perfusion study from 11/30/2016, the inferolateral, apical, and distal anteroapical and periapical defects are new. The previous ejection fraction was 85% with an end- diastolic volume of 96 mL suggesting interval reduction in systolic function and left ventricular enlargement with new focal wall motion abnormalities and a dyssynchronous contraction pattern. Curt De La Rosa - AMANDA/td/SERGO doc#: [id number]/job#: [id number] dd: 07/17/2024 17:02:00 dt: 07/17/2024 18:17:00 DICTATING MD/COPIES TO: Maciel Jones MD; Beka Jay MD COPIES MNE: [id number];
== END ==
PROVIDERS: Family Provider Internal Medicine; PCP Internal Medicine; Referring Provider Internal Medicine Cardiovascular Disease; Visit Provider Internal Medicine Cardiovascular Disease
DX: I49.3 Ventricular premature depolarization (principal); I48.0 Paroxysmal atrial fibrillation; R94.39 Abnormal result of other cardiovascular function study; I25.10 Atherosclerotic heart disease of native coronary artery without angina pectoris; Z95.5 Presence of coronary angioplasty implant and graft; Z95.0 Presence of cardiac pacemaker; Z95.2 Presence of prosthetic heart valve
CPT/HCPCS: 78452; 93017; A9502; J2785

== ENCOUNTER → 2024-08-03 06:45 | Outpatient (CLI) | payer OTHER, SELFPAY ==
--- NOTE | 2024-08-03 06:47 | DI.ECHO.S_ITS ---
[place] +---------+ [facility] : : [address] : : [place] : : [id number] : : Phone: [phone] Echocardiogram Report + + :Name: SEBASTIAN LAWSON Study Date: 08/03/2024 Height: 70 in : :[facility] ReadingLocation: Weight: 200 lb : : Gender: Male BSA: 2.1 m2 : :: 1945 Age: 79 yrs BP: 112/79 mmHg: :Reason For Study: PAROXYSMAL ATRIAL FIBRILLATION : :Ordering Physician: JAY, : :SHAQUILLE Performed By: Dao Nevarez : :Referring: SHAQUILLE THOMPSON : + + Interpretation Summary The left ventricle is normal in size. Left ventricular ejection fraction is estimated to be 30 +/- 5%. There appears to be moderate to severe global hypokinesis with almost akinesis of apex and significant LV dyssynchrony. Compared to the prior exam, the left ventricular function is reduced. Previous LVEF 55 to 60% and septal distal inferior apical and distal inferior lateral hypokinesis. The right ventricle is mildly dilated. The right ventricular systolic function is normal. There is a pacemaker lead in the right ventricle. There is mild to moderate mitral regurgitation. Compared to the prior echo study, there has been no change in the severity of mitral regurgitation. There is mild aortic regurgitation. There is mild tricuspid regurgitation. Compared to the prior echo exam, there has been no change in TR severity. The right ventricular systolic pressure is estimated to be at least 25 mmHg based on an estimated right atrial pressure of 3 mm Hg. Procedure: A two-dimensional transthoracic echocardiogram with color flow and Doppler was performed. The study quality was technically adequate. Comparison is made with the echocardiogram of 09/01/2022. The patient has a paced rhythm. The patient had frequent PVCs during the exam. Left Ventricle: The left ventricle is normal in size. There is mild concentric left ventricular hypertrophy. There is no ventricular septal defect visualized. Trabeculae near apex are visualized. No thrombus is observed. Left ventricular ejection fraction is estimated to be 30 +/- 5%. Compared to the prior exam, the left ventricular function is reduced. There appears to be moderate to severe global hypokinesis with almost akinesis of apex and significant LV dyssynchrony. Diastolic function could not be accurately assessed due to atrial fibrillation. Right Ventricle: The right ventricle is mildly dilated. There is a pacemaker lead in the right ventricle. The right ventricular systolic function is normal. Atria: The left atrium is mildly dilated. The left atrium has mildly increased in size since the prior echo exam. The right atrium is moderately dilated. There is a catheter/pacemaker lead seen in the right atrium. There is no Doppler evidence for an atrial septal defect. Mitral Valve: There is mild mitral annular calcification. There is mild to moderate mitral regurgitation. Compared to the prior echo study, there has been no change in the severity of mitral regurgitation. Aortic Valve: The aortic valve is trileaflet. There is mild aortic valve sclerosis. There is discrete nodular thickening of the right coronary cusp. There is no aortic valve stenosis. There is mild aortic regurgitation. Tricuspid Valve: The tricuspid valve is normal. There is mild tricuspid regurgitation. The right ventricular systolic pressure is estimated to be at least 25 mmHg based on an estimated right atrial pressure of 3 mm Hg. Compared to the prior echo exam, there has been no change in TR severity. Pulmonic Valve: The pulmonic valve is not well seen, but is grossly normal. There is trace pulmonic regurgitation. Great Vessels: The aortic root is mildly dilated. The ascending aorta is mildly enlarged. The pulmonary artery is normal size. The IVC is of normal diameter and collapses greater than 50% with a sniff. This suggests a low right atrial pressure of 3 mm Hg. Pericardium/ Pleura There is no pericardial effusion. There is an anterior echo-free space consistent with a fat pad. There is no pleural effusion. MMode/2D Measurements & Calculations LVIDd: 5.1 cm LVOT diam: 2.2 cm LVIDs: 4.0 cm Ao root diam: 3.8 cm FS: 22.4 % asc Aorta Diam: 3.9 cm EPSS: 0.78 cm Ao Arch Diam (Prox Trans): 2.4 cm IVSd: 1.1 cm LVPWd: 1.1 cm LV merida. diameter/BSA (cm/m^2): 2.4 LV sys. diameter/BSA (cm/m^2): 1.9 LA A2 area: 20.1 cm2 RA long axis: 6.5 cm LA A4 area: 22.4 cm2 RA area: 23.6 cm2 LA length (vol): 5.7 cm RA vol: 72.4 ml LA vol: 66.9 ml RA : 34.7 ml/m2 LA vol index: 32.1 ml/m2 IVC diam: 1.8 cm RVD1 (basal): 4.2 cm RVD2 (mid): 3.7 cm TAPSE: 2.5 cm Doppler Measurements & Calculations Ao V2 max: 130.2 cm/sec LVOT Max Augustus: 106.7 cm/sec Ao V2 mean: 92.9 cm/sec LV V1 max P.6 mmHg Ao max P.8 mmHg LV V1 VTI: 22.5 cm Ao mean P.9 mmHg FLOR(I,D): 3.2 cm2 Ao V2 VTI: 27.1 cm FLOR(V,D): 3.2 cm2 sev ratio: 0.83 FLOR indexed to BSA (cm^2/m^2): 1.5 MV E max augustus: 42.5 cm/sec TR max augustus: 232.8 cm/sec MV A max augustus: 87.0 cm/sec TR max P.7 mmHg MV E/A: 0.49 PA V2 max: 76.6 cm/sec Med Peak E' Augustus: 3.8 cm/sec PA V2 mean: 53.7 cm/sec E/E' med: 11.3 PA mean P.3 mmHg Lat Peak E' Augustus: 4.4 cm/sec PA pr(Accel): 32.8 mmHg E/E' lat: 9.6 E/e' average: 10.5 MV dec time: 0.30 sec SV(LVOT): 86.5 ml Reading Physician:04:34 PM
== END ==
LOC: ECHO 06:46
PROVIDERS: Family Provider Internal Medicine; PCP Internal Medicine; Referring Provider Internal Medicine Cardiovascular Disease; Visit Provider Internal Medicine Cardiovascular Disease
DX: I08.3 Combined rheumatic disorders of mitral, aortic and tricuspid valves (principal); I49.3 Ventricular premature depolarization; I48.0 Paroxysmal atrial fibrillation
CPT/HCPCS: 93306

== ENCOUNTER → 2024-08-22 07:34 | Outpatient (CLI) | payer OTHER, SELFPAY ==
[2024-08-22 08:47] LABS: BUN Creatinine Ratio 16.2 (6-22); Blood Urea Nitrogen 17 mg/dL (9-20); Calcium 9.2 mg/dL (8.4-10.2); Carbon Dioxide 30 mmol/L (22-32); Chloride 100 mmol/L (98-107); Estimated Glomerular Filt Rate > 60 mL/min (>60); Glucose 71 mg/dL (80-110); HEMOLYSIS < 15 (0-50); Potassium 3.8 mmol/L (3.4-5.1); Sodium 135 mmol/L (137-145)
[2024-08-22 08:54] LABS: NT-proBNP (BNP-Adult 18+) 333 pg/mL (<450)
== END ==
PROVIDERS: Family Provider Internal Medicine; PCP Internal Medicine; Referring Provider Internal Medicine Cardiovascular Disease; Visit Provider Internal Medicine Cardiovascular Disease
DX: I50.20 Unspecified systolic (congestive) heart failure (principal)
CPT/HCPCS: 36415; 80048; 83880

== ENCOUNTER → 2024-10-11 08:06 | Outpatient (CLI) | payer OTHER, SELFPAY ==
[2024-10-11 08:57] LABS: BUN Creatinine Ratio 14.8 (6-22); Blood Urea Nitrogen 13 mg/dL (9-20); Calcium 9.8 mg/dL (8.4-10.2); Carbon Dioxide 28 mmol/L (22-32); Chloride 99 mmol/L (98-107); Estimated Glomerular Filt Rate > 60 mL/min (>60); Glucose 73 mg/dL (80-110); HEMOLYSIS 16 (0-50); Potassium 4.2 mmol/L (3.4-5.1); Sodium 135 mmol/L (137-145)
== END ==
PROVIDERS: Family Provider Internal Medicine; PCP Internal Medicine; Referring Provider Nurse Practitioner; Visit Provider Nurse Practitioner
DX: I25.5 Ischemic cardiomyopathy (principal)
CPT/HCPCS: 36415; 80048

== ENCOUNTER → 2024-10-25 09:47 | Outpatient (CLI) | payer OTHER, SELFPAY ==
[2024-11-06 11:10] LABS: Percent Free Testosterone 3.38 % (1.50-4.20); Testosterone Free 2.41 ng/dL (5.00-21.00); Testosterone Total 71.4 ng/dL (264.0-916.0)
== END ==
PROVIDERS: Family Provider Internal Medicine; PCP Internal Medicine; Referring Provider Internal Medicine; Visit Provider Internal Medicine
DX: E29.1 Testicular hypofunction (principal)
CPT/HCPCS: 36415; 84402; 84403

== ENCOUNTER → 2024-12-23 10:02 | Outpatient (CLI) | payer OTHER, SELFPAY ==
[2024-12-23 11:03] LABS: Hemoglobin A1C% w Est Avg Glu 5.7 % (4.0-6.0)
[2024-12-23 11:07] LABS: Alanine Aminotransferase 25 IU/L (<50); Albumin 3.7 g/dL (3.5-5.0); Albumin Globulin Ratio 1.8 (1.0-2.8); Alkaline Phosphatase 39 U/L (38-126); Aspartate Aminotransferase 33 IU/L (17-59); BUN Creatinine Ratio 21.3 (6-22); Bilirubin Total 1.2 mg/dL (0.2-1.3); Blood Urea Nitrogen 20 mg/dL (9-20); Calcium 9.6 mg/dL (8.4-10.2); Carbon Dioxide 29 mmol/L (22-32); Chloride 100 mmol/L (98-107); Estimated Glomerular Filt Rate > 60 mL/min (>60); Globulin 2.1 g/dL (1.7-4.1); Glucose 107 mg/dL (70-99); HEMOLYSIS < 15 (0-50); Potassium 4.7 mmol/L (3.4-5.1); Sodium 134 mmol/L (137-145); Total Protein 5.8 g/dL (6.3-8.2)
[2024-12-23 11:23] LABS: Vitamin D 25 Hydroxy (D3) 65.9 ng/mL (30.0-100.0)
== END ==
PROVIDERS: Family Provider Internal Medicine; PCP Internal Medicine; Referring Provider Psychiatry & Neurology Neurology; Visit Provider Psychiatry & Neurology Neurology
DX: E11.9 Type 2 diabetes mellitus without complications (principal); Z79.52 Long term (current) use of systemic steroids; G70.00 Myasthenia gravis without (acute) exacerbation; G62.9 Polyneuropathy, unspecified; E78.2 Mixed hyperlipidemia; I25.5 Ischemic cardiomyopathy
CPT/HCPCS: 36415; 80053; 82306; 83036

== ENCOUNTER → 2025-01-19 07:53 | Outpatient (CLI) | payer OTHER, SELFPAY ==
[2025-01-19 09:43] LABS: Add Manual Diff / Slide Review NO; Basophils Absolute Auto 100 /uL (0-100); Eosinophils Absolute Auto 100 /uL (0-450); Eosinophils Percent Auto 1.4 % (2-4); Hematocrit 46.7 % (41-53); Hemoglobin 15.8 g/dL (13.5-17.5); Lymphocytes Absolute Auto 1000 /uL (1100-4500); Lymphocytes Percent Auto 18.4 % (25-40); Mean Corpuscular HGB Conc 33.9 % (30-36); Mean Corpuscular Hemoglobin 36.1 PG (26-34); Mean Corpuscular Volume 106.4 fL (80-100); Monocytes Absolute Auto 700 /uL (0-900); Monocytes Percent Auto 12.5 % (3-14); Neutrophils Absolute Auto 3600 /uL (1500-7000); Neutrophils Percent Auto 66.7 % (50-75); Platelet Count 169 X10^3/uL (150-400); Red Blood Cell Count 4.39 X10^6/uL (4.5-5.9); Red Cell Distribution Width 16.7 % (11.6-14.8); White Blood Cell Count 5.4 X10^3/uL (4.5-11.0)
[2025-01-19 10:07] LABS: Blood Urea Nitrogen 19 mg/dL (9-20); Calcium 9.5 mg/dL (8.4-10.2); Carbon Dioxide 28 mmol/L (22-32); Chloride 101 mmol/L (98-107); Estimated Glomerular Filt Rate > 60 mL/min (>60); Glucose 74 mg/dL (70-99); HEMOLYSIS < 15 (0-50); Potassium 4.4 mmol/L (3.4-5.1); Sodium 137 mmol/L (137-145)
== END ==
PROVIDERS: Family Provider Internal Medicine; PCP Internal Medicine; Referring Provider Internal Medicine Cardiovascular Disease; Visit Provider Internal Medicine Cardiovascular Disease
DX: I25.5 Ischemic cardiomyopathy (principal)
CPT/HCPCS: 36415; 80048; 85025

== ENCOUNTER → 2025-05-11 08:10 | Outpatient (CLI) | payer OTHER, SELFPAY ==
[2025-05-11 08:53] LABS: Add Manual Diff / Slide Review NO; Hematocrit 45.3 % (41-53); Hemoglobin 15.5 g/dL (13.5-17.5); Lymphocytes Absolute Auto 900 /uL (1100-4500); Mean Corpuscular HGB Conc 34.3 % (30-36); Mean Corpuscular Hemoglobin 36.0 PG (26-34); Mean Corpuscular Volume 105.1 fL (80-100); Platelet Count 175 X10^3/uL (150-400)
[2025-05-11 09:16] LABS: Alanine Aminotransferase 21 IU/L (<50); Albumin 3.6 g/dL (3.5-5.0); Albumin Globulin Ratio 1.6 (1.0-2.8); Alkaline Phosphatase 35 U/L (38-126); Blood Urea Nitrogen 14 mg/dL (9-20); Calcium 9.7 mg/dL (8.4-10.2); Carbon Dioxide 30 mmol/L (22-32); Chloride 101 mmol/L (98-107); Estimated Glomerular Filt Rate > 60 mL/min (>60); Globulin 2.3 g/dL (1.7-4.1); Glucose 77 mg/dL (70-99); HEMOLYSIS 17 (0-50); Potassium 4.3 mmol/L (3.4-5.1); Sodium 135 mmol/L (137-145); Total Protein 5.9 g/dL (6.3-8.2)
== END ==
PROVIDERS: Family Provider Internal Medicine; PCP Internal Medicine; Referring Provider Internal Medicine Cardiovascular Disease; Visit Provider Internal Medicine Cardiovascular Disease
DX: I42.0 Dilated cardiomyopathy (principal); G62.9 Polyneuropathy, unspecified; G70.00 Myasthenia gravis without (acute) exacerbation
CPT/HCPCS: 36415; 80053; 85025

== ENCOUNTER → 2025-05-28 10:17 | Outpatient (CLI) | payer OTHER, SELFPAY ==
[2025-05-28 12:08] LABS: Add Manual Diff / Slide Review NO; Hematocrit 46.3 % (41-53); Hemoglobin 16.0 g/dL (13.5-17.5); Lymphocytes Absolute Auto 700 /uL (1100-4500); Mean Corpuscular HGB Conc 34.6 % (30-36); Mean Corpuscular Hemoglobin 35.7 PG (26-34); Mean Corpuscular Volume 103.3 fL (80-100); Platelet Count 155 X10^3/uL (150-400)
== END ==
PROVIDERS: Family Provider Internal Medicine; PCP Internal Medicine; Referring Provider Psychiatry & Neurology Neurology; Visit Provider Psychiatry & Neurology Neurology
DX: G62.9 Polyneuropathy, unspecified (principal); G70.00 Myasthenia gravis without (acute) exacerbation; Z79.52 Long term (current) use of systemic steroids; Z92.25 Personal history of immunosuppression therapy
CPT/HCPCS: 36415; 85025

== ENCOUNTER → 2025-06-05 10:14 | Outpatient (CLI) | payer OTHER, SELFPAY ==
[2025-06-05 10:51] LABS: Add Manual Diff / Slide Review NO; Hematocrit 46.4 % (41-53); Hemoglobin 16.2 g/dL (13.5-17.5); Lymphocytes Absolute Auto 800 /uL (1100-4500); Mean Corpuscular HGB Conc 34.9 % (30-36); Mean Corpuscular Hemoglobin 35.9 PG (26-34); Mean Corpuscular Volume 102.8 fL (80-100); Platelet Count 160 X10^3/uL (150-400)
[2025-06-05 12:24] LABS: Alanine Aminotransferase 25 IU/L (<50); Albumin 3.8 g/dL (3.5-5.0); Albumin Globulin Ratio 1.7 (1.0-2.8); Alkaline Phosphatase 61 U/L (38-126); Blood Urea Nitrogen 18 mg/dL (9-20); Calcium 9.3 mg/dL (8.4-10.2); Carbon Dioxide 25 mmol/L (22-32); Chloride 101 mmol/L (98-107); Estimated Glomerular Filt Rate > 60 mL/min (>60); Globulin 2.3 g/dL (1.7-4.1); Glucose 76 mg/dL (70-99); Potassium 4.1 mmol/L (3.4-5.1); Sodium 134 mmol/L (137-145); Total Protein 6.1 g/dL (6.3-8.2)
[2025-06-05 12:27] LABS: HEMOLYSIS 66 (0-50)
== END ==
PROVIDERS: Family Provider Internal Medicine; PCP Internal Medicine; Referring Provider Psychiatry & Neurology Neurology; Visit Provider Psychiatry & Neurology Neurology
DX: G62.9 Polyneuropathy, unspecified (principal); G70.00 Myasthenia gravis without (acute) exacerbation; Z79.52 Long term (current) use of systemic steroids; Z92.25 Personal history of immunosuppression therapy
CPT/HCPCS: 36415; 80053; 85025

== ENCOUNTER → 2025-06-15 11:43 | Outpatient (CLI) | payer OTHER, SELFPAY ==
[2025-06-15 12:36] LABS: Add Manual Diff / Slide Review NO; Hematocrit 45.7 % (41-53); Hemoglobin 15.8 g/dL (13.5-17.5); Lymphocytes Absolute Auto 500 /uL (1100-4500); Mean Corpuscular HGB Conc 34.5 % (30-36); Mean Corpuscular Hemoglobin 35.1 PG (26-34); Mean Corpuscular Volume 101.8 fL (80-100); Platelet Count 148 X10^3/uL (150-400)
[2025-06-15 12:52] LABS: Alanine Aminotransferase 27 IU/L (<50); Albumin 3.7 g/dL (3.5-5.0); Albumin Globulin Ratio 1.4 (1.0-2.8); Alkaline Phosphatase 42 U/L (38-126); Calcium 9.7 mg/dL (8.4-10.2); Carbon Dioxide 28 mmol/L (22-32); Chloride 100 mmol/L (98-107); Globulin 2.6 g/dL (1.7-4.1); Glucose 104 mg/dL (70-99); HEMOLYSIS < 15 (0-50); Potassium 4.0 mmol/L (3.4-5.1); Sodium 133 mmol/L (137-145); Total Protein 6.3 g/dL (6.3-8.2)
[2025-06-15 14:20] LABS: Blood Urea Nitrogen 16 mg/dL (9-20); Estimated Glomerular Filt Rate > 60 mL/min (>60)
== END ==
PROVIDERS: Family Provider Internal Medicine; PCP Internal Medicine; Referring Provider Psychiatry & Neurology Neurology; Visit Provider Psychiatry & Neurology Neurology
DX: G62.9 Polyneuropathy, unspecified (principal); G70.00 Myasthenia gravis without (acute) exacerbation; Z79.52 Long term (current) use of systemic steroids; Z92.25 Personal history of immunosuppression therapy
CPT/HCPCS: 36415; 80053; 85025

== ENCOUNTER → 2025-06-27 15:22 | Outpatient (CLI) | payer OTHER, SELFPAY ==
[2025-06-27 16:20] LABS: Add Manual Diff / Slide Review NO; Hematocrit 47.4 % (41-53); Hemoglobin 16.2 g/dL (13.5-17.5); Lymphocytes Absolute Auto 500 /uL (1100-4500); Mean Corpuscular HGB Conc 34.3 % (30-36); Mean Corpuscular Hemoglobin 34.4 PG (26-34); Mean Corpuscular Volume 100.3 fL (80-100); Platelet Count 182 X10^3/uL (150-400)
== END ==
PROVIDERS: Family Provider Internal Medicine; PCP Internal Medicine; Referring Provider Psychiatry & Neurology Neurology; Visit Provider Psychiatry & Neurology Neurology
DX: G62.9 Polyneuropathy, unspecified (principal); G70.00 Myasthenia gravis without (acute) exacerbation; Z79.52 Long term (current) use of systemic steroids; Z92.25 Personal history of immunosuppression therapy
CPT/HCPCS: 36415; 85025

== ENCOUNTER → 2025-07-02 07:56 | Outpatient (CLI) | payer OTHER, SELFPAY ==
[2025-07-02 08:40] LABS: Hemoglobin A1C% w Est Avg Glu 5.6 % (4.0-6.0)
== END ==
PROVIDERS: Family Provider Internal Medicine; PCP Internal Medicine; Referring Provider Internal Medicine; Visit Provider Internal Medicine
DX: E11.9 Type 2 diabetes mellitus without complications (principal); E29.1 Testicular hypofunction
CPT/HCPCS: 36415; 83036; 84402; 84403

== ENCOUNTER → 2025-07-06 09:04 | Outpatient (CLI) | payer OTHER, SELFPAY ==
--- NOTE | 2025-07-06 09:05 | DI.ECHO.S_ITS ---
[place] +---------+ [facility] : : [address] : : [place] : : [id number] : : Phone: [phone] Echocardiogram Report + + :Name: SEBASTIAN LAWSON Study Date: 07/06/2025 Height: 71 in : :Hospital ReadingLocation: Weight: 195 lb : : Gender: Male BSA: 2.1 m2 : :: 1945 Age: 80 yrs BP: 100/72 mmHg: :Reason For Study: Chronic systolic heart failure : :Ordering Physician: JAY, : :SHAQUILLE Performed By: Grzegorz Garrido : :Referring: SHAQUILLE THOMPSON : + + Interpretation Summary 1) Normal left ventricular size with moderately to severely reduced systolic function (EF 30-35%). 2) There is akinesis of the apical cap and significant LV dyssynchrony. Rest of the LV is hypokinetic. 3) The right ventricle grossly appears normal in size with probable normal systolic function. There is a pacemaker lead in the right ventricle. 4) No significant valvular abnormalities. 5) Compared to the Echo done 08/03/2024, no significant change. Procedure: A two-dimensional transthoracic echocardiogram with color flow and Doppler was performed. The study quality was technically adequate. Comparison is made with the echocardiogram of 08/03/2024. The heart rate ranged between 60 bpm during the study. Left Ventricle: The left ventricle is normal in size. Left ventricular wall thickness is borderline increased. This is unchanged compared to the previous study. The ejection fraction is estimated to be 30-35%. There is akinesis of the apical cap and significant LV dyssynchrony. Rest of the LV is hypokinetic. Grade I diastolic dysfunction with normal left atrial pressure. Right Ventricle: The right ventricle grossly appears normal in size with probable normal systolic function. There is a pacemaker lead in the right ventricle. Aortic Valve: The aortic valve is trileaflet. The aortic valve opens well. There is discrete nodular thickening of the right coronary cusp. There is no aortic valve stenosis. There is mild aortic regurgitation. Tricuspid Valve: The tricuspid valve leaflets are thin and pliable. There is mild tricuspid regurgitation. The right ventricular systolic pressure is estimated to be at least 24 mmHg based on an estimated right atrial pressure of 3 mm Hg. Pulmonic Valve: The pulmonic valve is not well seen, but is grossly normal. There is trace pulmonic regurgitation. Great Vessels: The aortic root is normal size. The aortic arch could not be visualized. The ascending aorta is at the upper limits of normal in size. The pulmonary is not well visualized. The IVC is of normal diameter and collapses greater than 50% with a sniff. This suggests a low right atrial pressure of 3 mm Hg. Pericardium/ Pleura There is no pericardial effusion. MMode/2D Measurements & Calculations LVIDd: 4.8 cm LVOT diam: 2.4 cm LVIDs: 4.1 cm Ao root diam: 3.6 cm FS: 15.3 % asc Aorta Diam: 4.1 cm IVSd: 1.2 cm LVPWd: 1.2 cm LV merida. diameter/BSA (cm/m^2): 2.3 LV sys. diameter/BSA (cm/m^2): 2.0 LA A2 area: 15.9 cm2 RA long axis: 5.5 cm LA A4 area: 21.0 cm2 RA area: 14.3 cm2 LA length (vol): 5.7 cm RA vol: 31.4 ml LA vol: 50.1 ml RA : 15.1 ml/m2 LA vol index: 24.0 ml/m2 IVC diam: 1.1 cm TAPSE: 1.4 cm Doppler Measurements & Calculations Ao V2 max: 109.1 cm/sec LVOT Max Augustus: 101.2 cm/sec Ao V2 mean: 79.4 cm/sec LV V1 max P.1 mmHg Ao max P.8 mmHg LV V1 VTI: 16.6 cm Ao mean P.7 mmHg FLOR(I,D): 4.1 cm2 Ao V2 VTI: 19.0 cm FLOR(V,D): 4.3 cm2 sev ratio: 0.87 FLOR indexed to BSA (cm^2/m^2): 1.9 MV E max augustus: 42.2 cm/sec TR max augustus: 228.5 cm/sec MV A max augustus: 78.7 cm/sec TR max P.9 mmHg MV E/A: 0.54 PA V2 max: 86.4 cm/sec Med Peak E' Augustus: 2.9 cm/sec PA V2 mean: 52.9 cm/sec E/E' med: 14.8 PA mean P.4 mmHg Lat Peak E' Augustus: 3.0 cm/sec PA pr(Accel): 41.7 mmHg E/E' lat: 13.9 E/e' average: 14.3 MV dec time: 0.26 sec SV(LVOT): 77.2 ml Reading Physician:11:48 AM
== END ==
LOC: ECHO 09:04
PROVIDERS: Family Provider Internal Medicine; PCP Internal Medicine; Referring Provider Internal Medicine Cardiovascular Disease; Visit Provider Internal Medicine Cardiovascular Disease
DX: I08.2 Rheumatic disorders of both aortic and tricuspid valves (principal); I50.22 Chronic systolic (congestive) heart failure
CPT/HCPCS: 93306

== ENCOUNTER → 2025-08-14 14:37 | Outpatient (CLI) | payer OTHER, SELFPAY ==
[2025-08-14 15:28] LABS: Add Manual Diff / Slide Review NO; Hematocrit 48.5 % (41-53); Hemoglobin 16.7 g/dL (13.5-17.5); Lymphocytes Absolute Auto 400 /uL (1100-4500); Mean Corpuscular HGB Conc 34.5 % (30-36); Mean Corpuscular Hemoglobin 32.4 PG (26-34); Mean Corpuscular Volume 93.9 fL (80-100); Platelet Count 190 X10^3/uL (150-400)
== END ==
PROVIDERS: Family Provider Internal Medicine; PCP Internal Medicine; Referring Provider Psychiatry & Neurology Neurology; Visit Provider Psychiatry & Neurology Neurology
DX: G62.9 Polyneuropathy, unspecified (principal); G70.00 Myasthenia gravis without (acute) exacerbation; Z92.25 Personal history of immunosuppression therapy; Z79.52 Long term (current) use of systemic steroids
CPT/HCPCS: 36415; 85025